=== PATIENT | female | born 1960 | race Caucasian/White ===

== ENCOUNTER 2017-08-07 12:18 | Emergency (ER) | payer BC ==
[~2017-08-07] VITALS: Ht 152.4 cm; Wt 64.4 kg
[~2017-08-07 12:18] MED LIST: ANAS1TAB19 PO; CALC600T9 PO; CLARITIN D
[2017-08-07 12:28] VITALS: TEMP 36.4; Ht 152.4 cm; Wt 64.4 kg
[2017-08-07] MEDS ORDERED: RIBO200T PO (13:21)
[2017-08-07] MEDS ORDERED: LETR2TAB PO (13:21)
[2017-08-07] MEDS ORDERED: ONDANSETRON INJ 2 MG/ML 2 ML VIAL IV STA (13:34)
[2017-08-07] MEDS ORDERED: SODIUM CHLORIDE 0.9% 1000ML 1,000 ML IV STA (13:34)
[2017-08-07] MEDS ORDERED: OPTIRAY 320 IV PRN (14:00)
[2017-08-07 14:47] LABS: PTT PATIENT 42.2 SECONDS (21.0-31.0)
--- NOTE | 2017-08-07 14:51 | EMERGENCY ROOM VISIT NOTE ---
History Report prepared by Ginger: Anya Wise Under the Supervision of: Dr. Doc Joe M.D. First contact with patient: 13:29 Chief Complaint: ALLERGIC REACTION Stated Complaint: REACTION TO CHEMO DRUG Nursing Triage Summary: pt reports she having reaction to chemo med . has been vomiting feeling weak , decreased urination, confusion, decreased energy. med is kisquli has hx of breat ca with bone mets History of Present Illness The patient is a 57 year old female who presents to the Emergency Room with complaints of intermittent nausea and vomiting for the past 3 days. The patient is currently being treated for stage 4 breast cancer with metastases to the bone. She has been receiving an oral chemotherapy treatment for the past 3 weeks. Over the past 3 days she has developed nausea, vomiting, and confusion. The patient states, "I feel like I am moving through water." Family states that the patient has had decreased oral intake. She has not really been eating or drinking at all and what she has been consuming, she has been vomiting back up. She has had decreased urinary output. The patient denies fevers, diarrhea, and any pain. Family notes that the patient has problems with hypoglycemia and she seems to be more confused when her sugar is low. The patient was advised to come to the ED by her oncologist. They were concerned for possible metastases to the brain. Family states that she has had a CT scan of her head in the past which showed no CA in her brain. Source of History: patient Onset: 3 days ago Position: other (global) Quality: other (nausea/vomiting) Timing: intermittent Associated Symptoms: + urinary symptoms (decreased urination), No fevers, No diarrhea Note: Pt is more confused. Pt denies any pain. Review of Systems See HPI for pertinent positives & negatives. A total of 10 systems reviewed and were otherwise negative. Past Medical & Surgical Medical Problems: (1) Breast cancer, stage 4 (2) Hypotension (3) Metastasis to bone Family History No significant family history Social History Smoking Status: Never Smoker Alcohol Use: none Drug Use: none Marital Status: Housing Status: lives with family Current/Historical Medications Scheduled Letrozole (Femara), 2.5 MG PO DAILY Ribociclib Succinate (Kisqali), 600 MG PO DAILY Scheduled PRN Promethazine Hcl (Phenergan), 25 MG PO Q6H PRN for Nausea Allergies Coded Allergies: Penicillins (Verified Allergy, Unknown, 08/07/17) Sulfa Drugs (Verified Allergy, Unknown, 08/07/17) Uncoded Allergies: gladolinium (Adverse Reaction, Intermediate, Could not talk - very disoriented , 09/11/15) Physical Exam Vital Signs Date Time Temp Pulse Resp B/P (MAP) Pulse Ox O2 Delivery O2 Flow Rate FiO2 08/07/17 15:55 68 18 105/71 100 Room Air 08/07/17 14:22 60 08/07/17 14:20 61 18 120/79 100 Room Air 08/07/17 12:28 36.4 60 18 135/83 100 Room Air Physical Exam GENERAL: Patient is in no acute distress. HEENT: No acute trauma, normocephalic atraumatic, mucous membranes moist, no nasal congestion, no scleral icterus. NECK: No stridor, no adenopathy, no meningismus, trachea is midline. LUNGS: Clear to auscultation bilaterally, no wheeze, no rhonchi, breath sounds equal. HEART: Without murmurs gallops or rubs, regular rate and rhythm. ABDOMEN: Soft, nontender, bowel sounds positive, no hernias, no peritonitis. EXTREMITIES: No cyanosis or edema, full range of motion of all the joints without pain or difficulty, no signs for acute trauma. NEUROLOGIC: Oriented x 3, no acute motor or sensory deficits, no focal weakness. SKIN: No rash, no jaundice, no diaphoresis. Medical Decision & Procedures ER Provider Diagnostic Interpretation: Radiology results as stated below per my review and radiologist interpretation: HEAD CT WITH AND WITHOUT INTRAVENOUS CONTRAST HISTORY: confusion, h/o cancer TECHNIQUE: Multiaxial CT images of the head were performed both before and after the intravenous administration of contrast. COMPARISON STUDY: Head CT 06/27/2015. FINDINGS: There are multiple scattered lucent lesions seen within the calvarium, right mandibular condyle, and right posterior arch of C1 consistent with metastatic disease. A few of these have slightly increased in size. There is also abnormal thickening and enhancement within the medial rectus muscle of the left orbit. This measures up to 9 mm in thickness. This is also consistent with metastatic disease. There is no hematoma, midline shift, acute infarct within the brain. There is no abnormal enhancement to suggest an intracranial mass. IMPRESSION: 1. No acute intracranial abnormality. 2. Slight progression of the bony metastases. 3. Interval development of abnormal thickening and enhancement within the medial rectus muscle of the left orbit. This also likely represents metastatic disease. Electronically signed by: Bridger Lee M.D. 08/07/2017 3:49 PM Dictated Date/Time: 08/07/2017 3:38 PM ABDOMEN 2VIEW W/PA CHEST RTN CLINICAL HISTORY: vomiting, cancer history COMPARISON STUDY: 06/27/2015 FINDINGS: Erect chest reveals no free intraperitoneal air. There is a right-sided A-Port catheter present. There is persistent but diminished interstitial prominence. Erect and supine views the abdomen reveal no abnormally dilated loops of large or small bowel. There are no transition zones indicate bowel obstruction. IMPRESSION: No evidence of bowel obstruction. No evidence of free air. Electronically signed by: Francois Jaquez M.D. 08/07/2017 2:48 PM Dictated Date/Time: 08/07/2017 2:48 PM Laboratory Results 08/07/17 14:15 Red Blood Count 3.70, Mean Corpuscular Volume 87.8, Mean Corpuscular Hemoglobin 31.1, Mean Corpuscular Hemoglobin Concent 35.4, Mean Platelet Volume 10.4, Neutrophils (%) (Auto) 54.4, Lymphocytes (%) (Auto) 40.4, Monocytes (%) (Auto) 2.2, Eosinophils (%) (Auto) 1.5, Basophils (%) (Auto) 1.5, Neutrophils # (Auto) 0.74, Lymphocytes # (Auto) 0.55, Monocytes # (Auto) 0.03, Eosinophils # (Auto) 0.02, Basophils # (Auto) 0.02 08/07/17 14:15 Test 08/07/17 14:15 White Blood Count 1.36 K/uL (4.8-10.8) Red Blood Count 3.70 M/uL (4.2-5.4) Hemoglobin 11.5 g/dL (12.0-16.0) Hematocrit 32.5 % (37-47) Mean Corpuscular Volume 87.8 fL (80-100) Mean Corpuscular Hemoglobin 31.1 pg (25-34) Mean Corpuscular Hemoglobin Concent 35.4 g/dl (32-36) Platelet Count 98 K/uL (130-400) Mean Platelet Volume 10.4 fL (7.4-10.4) Neutrophils (%) (Auto) 54.4 % Lymphocytes (%) (Auto) 40.4 % Monocytes (%) (Auto) 2.2 % Eosinophils (%) (Auto) 1.5 % Basophils (%) (Auto) 1.5 % Neutrophils # (Auto) 0.74 K/uL (1.4-6.5) Lymphocytes # (Auto) 0.55 K/uL (1.2-3.4) Monocytes # (Auto) 0.03 K/uL (0.11-0.59) Eosinophils # (Auto) 0.02 K/uL (0-0.5) Basophils # (Auto) 0.02 K/uL (0-0.2) RDW Standard Deviation 43.0 fL (36.4-46.3) RDW Coefficient of Variation 13.5 % (11.5-14.5) Immature Granulocyte % (Auto) 0.0 % Immature Granulocyte # (Auto) 0.00 K/uL (0.00-0.02) Platelet Estimate DECREASED Macrocytosis PRESENT Prothrombin Time 10.7 SECONDS (9.0-12.0) Prothromb Time International Ratio 1.0 (0.9-1.1) Activated Partial Thromboplast Time 42.2 SECONDS (21.0-31.0) Partial Thromboplastin Ratio 1.6 Urine Color YELLOW Urine Appearance CLEAR (CLEAR) Urine pH 5.5 (4.5-7.5) Urine Specific [place] 1.019 (1.000-1.030) Urine Protein 1+ (NEG) Urine Glucose (UA) NEG (NEG) Urine Ketones 1+ (NEG) Urine Occult Blood NEG (NEG) Urine Nitrite NEG (NEG) Urine Bilirubin NEG (NEG) Urine Urobilinogen NEG (NEG) Urine Leukocyte Esterase SMALL (NEG) Urine WBC (Auto) 1-5 /hpf (0-5) Urine RBC (Auto) 5-10 /hpf (0-4) Urine Hyaline Casts (Auto) 1-5 /lpf (0-5) Urine Epithelial Cells (Auto) 5-10 /lpf (0-5) Urine Bacteria (Auto) NEG (NEG) Anion Gap 7.0 mmol/L (3-11) Est Creatinine Clear Calc Drug Dose 51.8 ml/min Estimated GFR () 73.2 Estimated GFR (Non- 63.1 BUN/Creatinine Ratio 10.6 (10-20) Calcium Level 8.2 mg/dl (8.5-10.1) Magnesium Level 2.0 mg/dl (1.8-2.4) Total Bilirubin 1.3 mg/dl (0.2-1) Aspartate Amino Transf (AST/SGOT) 25 U/L (15-37) Alanine Aminotransferase (ALT/SGPT) 18 U/L (12-78) Alkaline Phosphatase 69 U/L (45-117) Troponin I < 0.015 ng/ml (0-0.045) Total Protein 7.1 gm/dl (6.4-8.2) Albumin 3.3 gm/dl (3.4-5.0) Globulin 3.8 gm/dl (2.5-4.0) Albumin/Globulin Ratio 0.9 (0.9-2) Thyroid Stimulating Hormone (TSH) 8.710 uIu/ml (0.300-4.500) Laboratory results reviewed by me. Medications Administered Medications (Trade) Dose Ordered Sig/Yenni Route Start Time Stop Time Status Last Admin Dose Admin Ondansetron HCl (Zofran Inj) 4 mg NOW STAT IV 08/07/17 13:34 08/07/17 13:38 DC 08/07/17 14:25 4 MG Sodium Chloride 1,000 ml @ 999 mls/hr Q1H1M STAT IV 08/07/17 13:34 08/07/17 14:34 DC 08/07/17 14:19 999 MLS/HR Sodium Chloride 500 ml @ 999 mls/hr Q31M STAT IV 08/07/17 16:01 08/07/17 16:31 DC 08/07/17 16:22 999 MLS/HR ECG Indication: altered mental status Rate (beats per minute): 60 Rhythm: normal sinus Findings: nonspecific-ST abn (diffusely), prolonged QT (at 518 ms), no ectopy, other (ECG as interpreted by myself) ED Course 1329: The patient was evaluated in room C9. A complete history and physical exam was performed. 1334: NSS 1000 ml @ 999 mls/hr IV, Zofran 4 mg IV 1558: I spoke with Dr. Mariee, the patient's oncologist. We discussed the patient 's case. He said that everything described was expected and as long as there are no acute findings within the brain the patient can be discharged home. 1601: NSS 500 ml @ 999 mls/hr IV 1619: I reassessed the patient at this time. She is feeling better and resting comfortably. I discussed the results and treatment plan with the patient. I answered all pertaining questions that she had. She expressed understanding and verbalized agreement. The patient will be discharged home. Medical Decision Differential diagnoses includes dehydration, electrolyte imbalance, hypoglycemia , UTI, brain metastases, renal failure, liver failure, medication reaction. The patient is neutropenic, this is expected though given her treatment. Hemoglobin slightly low. Platelet count somewhat low but not critical. Sodium was low at 126, this appears baseline though for the patient looking back at previous testing. No kidney failure. No hepatitis. TSH mildly elevated. X- rays of the abdomen and pelvis do not show any bowel obstruction, there is no pneumonia. Brain CT shows some bony metastases, there was no intraparenchymal lesion seen. A lesion to one of the muscles of the eye was felt possible. EKG showed a normal sinus rhythm, the QT was prolonged, no acute ischemia. Cardiac enzyme testing times one is not consistent with acute cardiac injury. By workup , I could not find evidence for coagulopathy. Urinalysis did not show infection. The patient received IV Zofran and IV saline. She feels markedly better. I discussed her findings with her oncologist. We went over all the imaging and laboratory results. Everything was acceptable and or expected. The patient will be discharged with Phenergan for nausea. Hydration was encouraged. She can return for worsening symptoms or fever. In short, the patient appeared dehydrated more than anything. She has improved with IV hydration. Medication Reconcilliation Current Medication List: was personally reviewed by me Blood Pressure Screening Patient's blood pressure: Normal blood pressure Consults Time Called: [phone] Consulting Physician: Dr. Mariee Returned Call: [phone] Mariee, the patient's oncologist. We discussed the patient's case. He said that everything described was expected and as long as there are no acute findings within the brain the patient can be discharged home. Impression Primary Impression: Dehydration Additional Impressions: Metastatic breast cancer Nausea Scribe Attestation The scribe's documentation has been prepared under my direction and personally reviewed by me in its entirety. I confirm that the note above accurately reflects all work, treatment, procedures, and medical decision making performed by me. Departure Information Dispostion Home / Self-Care Prescriptions Promethazine Hcl (Phenergan) 25 Mg Tab 25 MG PO Q6H Y for Nausea, #20 TAB Prov: Doc Joe M.D. 08/07/17 Referrals No Doctor, Assigned (PCP) Forms HOME CARE DOCUMENTATION FORM, IMPORTANT VISIT INFORMATION Patient Instructions My [facility] Additional Instructions phenergan 1 tab every 6 hours for nausea as needed slowly advance the diet rest fluids return for fever or worsening symptoms as we discussed Problem Qualifiers
[2017-08-07] MEDS ORDERED: RACEPINEPHRINE 2.25% NEBU SOLN 0.5 ML VIAL INH STA (14:53)
[2017-08-07 15:00] LABS: ALBUMIN 3.3 gm/dl (3.4-5.0); ALT/SGPT 18 U/L (12-78); AST/SGOT 25 U/L (15-37); BLOOD UREA NITROGEN 10 mg/dl (7-18); CALCIUM 8.2 mg/dl (8.5-10.1); CARBON DIOXIDE 25 mmol/L (21-32); CREATININE 0.98 mg/dl (0.60-1.20); GLUCOSE 82 mg/dl (70-99); POTASSIUM 3.9 mmol/L (3.5-5.1); SODIUM 126 mmol/L (136-145)
[2017-08-07 15:10] LABS: ALKALINE PHOSPHATASE 69 U/L (45-117); TOTAL PROTEIN 7.1 gm/dl (6.4-8.2)
[2017-08-07 15:12] LABS: HEMATOCRIT 32.5 % (37-47); HEMOGLOBIN 11.5 g/dL (12.0-16.0); MEAN CELL VOLUME 87.8 fL (80-100); MEAN CORPUSCULAR HEMOGLOBIN 31.1 pg (25-34); MEAN CORPUSCULAR HGB CONC 35.4 g/dl (32-36); MEAN PLATELET VOLUME 10.4 fL (7.4-10.4); PLATELET COUNT 98 K/uL (130-400); RED CELL DISTRIBUTION WIDTH CV 13.5 % (11.5-14.5); WHITE BLOOD COUNT 1.36 K/uL (4.8-10.8)
[2017-08-07 15:15] LABS: BASO % 1.5 %; BASO ABS # 0.02 K/uL (0-0.2); EOS % 1.5 %; EOS ABS # 0.02 K/uL (0-0.5); LYMPH % 40.4 %; LYMPH ABS # 0.55 K/uL (1.2-3.4); MONO % 2.2 %; MONO ABS # 0.03 K/uL (0.11-0.59); NEUT % 54.4 %; NEUT ABS # 0.74 K/uL (1.4-6.5)
--- NOTE | 2017-08-07 15:50 | DIAGNOSTIC IMAGING REPORT ---
HEAD CT WITH AND WITHOUT INTRAVENOUS CONTRAST HISTORY: confusion, h/o cancer TECHNIQUE: Multiaxial CT images of the head were performed both before and after the intravenous administration of contrast. COMPARISON STUDY: Head CT 06/27/2015. FINDINGS: There are multiple scattered lucent lesions seen within the calvarium, right mandibular condyle, and right posterior arch of C1 consistent with metastatic disease. A few of these have slightly increased in size. There is also abnormal thickening and enhancement within the medial rectus muscle of the left orbit. This measures up to 9 mm in thickness. This is also consistent with metastatic disease. There is no hematoma, midline shift, acute infarct within the brain. There is no abnormal enhancement to suggest an intracranial mass. IMPRESSION: 1. No acute intracranial abnormality. 2. Slight progression of the bony metastases. 3. Interval development of abnormal thickening and enhancement within the medial rectus muscle of the left orbit. This also likely represents metastatic disease. Electronically signed by: Bridger Lee M.D. 08/07/2017 3:49 PM Dictated Date/Time: 08/07/2017 3:38 PM
[2017-08-07] MEDS ORDERED: SODIUM CHLORIDE 0.9% 500ML 500 ML IV STA (16:01)
[2017-08-07] MEDS ORDERED: PROM25TA9 PO (16:21)
[2017-08-07 17:00] VITALS: BP 116/82; PULSE 72; O2SAT 96
== END 2017-08-07 17:09 | disposition home or self-care (01) ==
LOC: C.EDB 12:20 → C.EDC 17:09
DX: E86.0 Dehydration (principal); C50.919 Malignant neoplasm of unspecified site of unspecified female breast; R11.0 Nausea; C79.51 Secondary malignant neoplasm of bone; I95.9 Hypotension, unspecified; Z79.899 Other long term (current) drug therapy

== ENCOUNTER 2017-09-24 15:05 | Inpatient (IN) | payer BC ==
[~2017-09-24] VITALS: Ht 152.4 cm; Wt 66.2 kg
[~2017-09-24 15:05] MED LIST changes: -ANAS1TAB19 PO; +CALC-279 PO; -CALC600T9 PO; -CLARITIN D; +FULV250I2; +LORA-749 PO; +PROM25TA9 PO; +RIBO200T PO
[2017-09-24 16:44] LABS: HEMATOCRIT 25.3 % (37-47); HEMOGLOBIN 9.4 g/dL (12.0-16.0); MEAN CELL VOLUME 91.3 fL (80-100); MEAN CORPUSCULAR HEMOGLOBIN 33.9 pg (25-34); MEAN CORPUSCULAR HGB CONC 37.2 g/dl (32-36); MEAN PLATELET VOLUME 9.1 fL (7.4-10.4); PLATELET COUNT 121 K/uL (130-400); RED CELL DISTRIBUTION WIDTH SD 61.3 fL (36.4-46.3); WHITE BLOOD COUNT 1.09 K/uL (4.8-10.8)
[2017-09-24 16:45] LABS: BASO % 3.7 %; BASO ABS # 0.04 K/uL (0-0.2); EOS % 2.8 %; EOS ABS # 0.03 K/uL (0-0.5); LYMPH % 61.5 %; LYMPH ABS # 0.67 K/uL (1.2-3.4); MONO % 10.1 %; MONO ABS # 0.11 K/uL (0.11-0.59); NEUT % 21.9 %
[2017-09-24 16:48] LABS: NEUT ABS # 0.24 K/uL (1.4-6.5)
[2017-09-24 16:58] LABS: CREATININE 0.91 mg/dl (0.60-1.20)
[2017-09-24 16:59] LABS: CALCIUM 8.5 mg/dl (8.5-10.1); POTASSIUM 4.3 mmol/L (3.5-5.1)
[2017-09-24 17:00] LABS: ALBUMIN 3.4 gm/dl (3.4-5.0); TOTAL PROTEIN 6.6 gm/dl (6.4-8.2)
[2017-09-24] MEDS ORDERED: SODIUM CHLORIDE 0.9% 1000ML 1,000 ML IV STA (17:15)
--- NOTE | 2017-09-24 18:23 | History and Physical ---
History & Physical Date & Time of Service: Sep 24, 2017 at 18:23 Chief Complaint: Abnormal Labs, Low Sodium. Send By Dr. Mariee Primary Care Physician: No Doctor, Assigned History of Present Illness Source: patient This is a 57-year-old female with metastatic breast cancer metastases to bones- including thoracic spine/T12 vertebral body, sacrum, recent CAT scan of head on July 2017 showed metastatic lesion to left orbit, multiple skull bone lesions Patient follows with hematology oncology Dr. Mariee Underwent multiple rounds of chemo and radiation treatment. Patient recently started on Femora/Ribociclib tx Outpatient lab at [facility] drawn today showed hyponatremia sodium 124 last lab on 09/08/2017 sodium was 139. Patient was asked to come to the ER for evaluation by hematology clinic. Lab drawn at ER showed sodium 118 Patient denies of any headache no confusional state, no dizzy spells or lightheadedness No nausea vomiting or poor p.o. intake recently Had 2 episodes of diarrhea earlier today, She had an ER visit at [facility] August 07, 2017 for nausea vomiting, dehydration, confusional state Required IV hydration Since then she has been drinking plenty of water Mention drinks approximately 72 Oz water a day. Family History No significant family history Social History Smoking Status: Never Smoker Drug Use: none Marital Status: Multi-Drug Resistant Organisms History of MDRO: No Allergies Coded Allergies: Penicillins (Verified Allergy, Unknown, 09/24/17) Sulfa Drugs (Verified Allergy, Unknown, 09/24/17) Uncoded Allergies: gladolinium (Adverse Reaction, Intermediate, Could not talk - very disoriented , 09/11/15) Home Medications Scheduled Calcium Citrate-Vitamin D (Calcium Citrate + D), 1 TAB PO DAILY Fulvestrant (Faslodex), 1 UD Ribociclib Succinate (Kisqali), 600 MG PO DAILY Scheduled PRN Loratadine & Pseudoephedrine (Claritin-D 24 Hour), 1 TAB PO DAILY PRN for Nasal Congestion Promethazine Hcl (Phenergan), 25 MG PO Q6H PRN for Nausea Review of Systems Constitutional: + weight loss, + weakness, + fatigue Eyes: + diplopia Respiratory: No cough, No sputum, No wheezing, No shortness of breath, No dyspnea on exertion, No dyspnea at rest, No hemoptysis, No problem reported Cardiovascular: No chest pain, No orthopnea, No PND, No edema, No claudication , No palpitations, No problem reported Abdomen: + diarrhea (2 episodes earlier) Genitourinary - Female: No dysuria, No urinary frequency, No urinary urgency, No urinary incontinence, No urinary retention, No hematuria, No dysmenorrhea, No menorrhagia, No metrorrhagia, No rash, No vaginal bleeding, No vaginal discharge, No vaginal itching, No vulvodynia, No , No problem reported Neurologic: + weakness, + numbness/tingling Physical Exam Vital Signs Date Time Temp Pulse Resp B/P (MAP) Pulse Ox O2 Delivery O2 Flow Rate FiO2 09/24/17 17:19 64 18 112/75 98 Room Air 09/24/17 17:07 65 09/24/17 15:41 65 09/24/17 15:09 36.8 72 18 148/83 99 Room Air General Appearance: no apparent distress Head: normocephalic, atraumatic Eyes: normal inspection, PERRL, EOMI, sclerae normal Neck: no JVD, no carotid bruits, trachea midline Respiratory/Chest: chest non-tender, lungs clear, normal breath sounds, no respiratory distress Cardiovascular: regular rate, rhythm, no edema, no JVD, normal peripheral pulses Abdomen/GI: normal bowel sounds, non tender, soft Extremities/Musculoskelatal: no pedal edema Neurologic/Psych: no motor/sensory deficits, alert, normal mood/affect Skin: normal color, warm/dry, no rash Diagnostics Laboratory Results Results Past 24 Hours Test 09/24/17 15:12 09/24/17 15:20 09/24/17 16:12 Range/Units Bedside Glucose 69 70-90 mg/dl Urine Color YELLOW Urine Appearance CLEAR CLEAR Urine pH 5.0 4.5-7.5 Urine Specific [place] 1.015 1.000-1.030 Urine Protein NEG NEG Urine Glucose (UA) NEG NEG Urine Ketones NEG NEG Urine Occult Blood NEG NEG Urine Nitrite NEG NEG Urine Bilirubin NEG NEG Urine Urobilinogen NEG NEG Urine Leukocyte Esterase TRACE NEG Urine WBC (Auto) 1-5 0-5 /hpf Urine RBC (Auto) 0-4 0-4 /hpf Urine Hyaline Casts (Auto) 1-5 0-5 /lpf Urine Epithelial Cells (Auto) 10-20 0-5 /lpf Urine Bacteria (Auto) NEG NEG White Blood Count 1.09 4.8-10.8 K/uL Red Blood Count 2.77 4.2-5.4 M/uL Hemoglobin 9.4 12.0-16.0 g/dL Hematocrit 25.3 37-47 % Mean Corpuscular Volume 91.3 80-100 fL Mean Corpuscular Hemoglobin 33.9 25-34 pg Mean Corpuscular Hemoglobin Concent 37.2 32-36 g/dl Platelet Count 121 130-400 K/uL Mean Platelet Volume 9.1 7.4-10.4 fL Neutrophils (%) (Auto) 21.9 % Lymphocytes (%) (Auto) 61.5 % Monocytes (%) (Auto) 10.1 % Eosinophils (%) (Auto) 2.8 % Basophils (%) (Auto) 3.7 % Neutrophils # (Auto) 0.24 1.4-6.5 K/uL Lymphocytes # (Auto) 0.67 1.2-3.4 K/uL Monocytes # (Auto) 0.11 0.11-0.59 K/uL Eosinophils # (Auto) 0.03 0-0.5 K/uL Basophils # (Auto) 0.04 0-0.2 K/uL RDW Standard Deviation 61.3 36.4-46.3 fL RDW Coefficient of Variation 19.0 11.5-14.5 % Immature Granulocyte % (Auto) 0.0 % Immature Granulocyte # (Auto) 0.00 0.00-0.02 K/uL Giant Platelets 1+ Sodium Level 118 136-145 mmol/L Potassium Level 4.3 3.5-5.1 mmol/L Chloride Level 87 98-107 mmol/L Carbon Dioxide Level 24 21-32 mmol/L Anion Gap 7.0 3-11 mmol/L Blood Urea Nitrogen 11 7-18 mg/dl Creatinine 0.91 0.60-1.20 mg/dl Est Creatinine Clear Calc Drug Dose 56.6 ml/min Estimated GFR () 80.0 Estimated GFR (Non- 69.1 BUN/Creatinine Ratio 12.1 10-20 Random Glucose 78 70-99 mg/dl Calcium Level 8.5 8.5-10.1 mg/dl Magnesium Level 1.9 1.8-2.4 mg/dl Total Bilirubin 0.5 0.2-1 mg/dl Direct Bilirubin 0.1 0-0.2 mg/dl Aspartate Amino Transf (AST/SGOT) 25 15-37 U/L Alanine Aminotransferase (ALT/SGPT) 17 12-78 U/L Alkaline Phosphatase 65 45-117 U/L Total Protein 6.6 6.4-8.2 gm/dl Albumin 3.4 3.4-5.0 gm/dl Lipase 158 73-393 U/L Impression Assessment and Plan STAGE 4 BREAST CA ON CHEMO : Diagnosed with left breast lobular carcinoma in 2014 Patient has been following with hematology oncology Dr. Mariee - completed 11 cycles of chemotherapy of weekly paclitaxel -status post bilateral mastectomy lymph node dissection 2015 Completed radiation treatment of the left chest wall and left axilla in 11/[address] scan shows progression of disease with bone metastases in T12 recent ER visit for nausea vomiting dehydration on August 07/2018 CT head showed tumor involvement of the left orbit and multiple skull bone lesions. -Scheduled to have radiation treatment on femora /Ribociclib since July 2017 HYPONATREMIA : Sodium 118 noted in the outpatient lab Patient denies of any nausea vomiting -mentioned has been drinking enough water -No confusion/dizzy spell or lightheadedness noted -Given NSS IV at 125 mL/h 1 L in the ER -Order to continue IV normal saline at 100 mL/h -PRP to be checked q. 4 hour -Caution for rapid correction of hyponatremia -Nephrology consulted, discussed with Dr. Scarlett Garcia -Ordered for urine / serum Osm /TSH level ABSOLUTE NEUTROPENIA /PANCYTOPENIA ; -Due to recent chemo -WBC 1.09, hemoglobin 9.4/hct 25.3 Platelets 121 Absolute neutrophil count 240 -No reported fever /chills or cough -Follow daily CBC with differential -Neutropenic precaution -Hematology oncology consulted DIARRHEA : Order for stool for C. difficile and stool culture FULL CODE ; DVT PROPHYLAXIS : moderate to high risk given metastatic breast CA Relative contraindication for Lovenox /subcu heparin -due to thrombocytopenia and anemia ordered for SCD and teds Encourage ambulate Disposition: Expected to be discharged home when medically stable Hematology oncology follow-up with Dr. Clay Mariee VTE Prophylaxis VTE Risk Assessment Done? Y/N: Yes Risk Level: Moderate Additional Copies To Clay Mariee M.D.
--- NOTE | 2017-09-24 19:07 | EMERGENCY ROOM VISIT NOTE ---
History Report prepared by Ginger: Eulogio Cortes Under the Supervision of: Dr. Kade Gilliam M.D. First contact with patient: 15:14 Chief Complaint: ABNORMAL LABS Stated Complaint: ABNORMAL LABS, LOW SODIUM. SEND BY DR. MARIEE History of Present Illness The patient is a 57 year old female who presents to the Emergency Room after referral from Dr. Mariee (oncologist) for concerns over low sodium levels, that were noticed just prior to arrival. The patient is currently receiving treatments from Dr. 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 The patient just recently had her 1 week off of treatments, and her electrolytes and blood levels are not recovering properly. She notes that she has been having some muscle cramps recently, and states she has had some diarrhea. She continued to add that it "feels like I am walking through water" in reference to her weakness. The patient also had a low blood sugar upon arrival to the ED, but she notes it is common for her sugars to be low. She is not diabetic. The patient denies any further denies LOC, headache, fevers, chills, diaphoresis, visual changes, neck pain, chest pain, breathing difficulties, nausea, vomiting, abdominal pain, back pain, melena, hematochezia , urinary symptoms, numbness, lymphadenopathy, rash, or other complaints. Review of the patient's record from her visit with Dr. Mariee shows a sodium level of 124 today. See ECG section for interpretation. 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 A total of ten systems were reviewed and were otherwise negative. Past Medical & Surgical Medical Problems: (1) Breast cancer, stage 4 (2) Hyponatremia (3) Hypotension (4) Metastasis to bone Family History No significant family history Social History Smoking Status: Never Smoker Alcohol Use: none Drug Use: none Marital Status: Housing Status: lives with family Current/Historical Medications Scheduled Calcium Citrate-Vitamin D (Calcium Citrate + D), 1 TAB PO DAILY Fulvestrant (Faslodex), 1 UD Ribociclib Succinate (Kisqali), 600 MG PO DAILY Scheduled PRN Loratadine & Pseudoephedrine (Claritin-D 24 Hour), 1 TAB PO DAILY PRN for Nasal Congestion Promethazine Hcl (Phenergan), 25 MG PO Q6H PRN for Nausea Allergies Coded Allergies: Penicillins (Verified Allergy, Unknown, 09/24/17) Sulfa Drugs (Verified Allergy, Unknown, 09/24/17) Uncoded Allergies: gladolinium (Adverse Reaction, Intermediate, Could not talk - very disoriented , 09/11/15) Physical Exam Vital Signs Date Time Temp Pulse Resp B/P (MAP) Pulse Ox O2 Delivery O2 Flow Rate FiO2 09/24/17 19:01 63 16 120/75 97 Room Air 09/24/17 17:19 64 18 112/75 98 Room Air 09/24/17 17:07 65 09/24/17 15:41 65 09/24/17 15:09 36.8 72 18 148/83 99 Room Air Physical Exam GENERAL: Awake, alert, well-appearing, in no distress HENT: Normocephalic, atraumatic. Oropharynx unremarkable. EYES: Normal conjunctiva. Sclera non-icteric. NECK: Supple. No nuchal rigidity. FROM. No masses. RESPIRATORY: Clear to auscultation. No wheezes. CARDIAC: Normal rate. Normal rhythm. No murmurs. No rubs. Extremities warm and well perfused. Pulses equal. No JVD. GI: Soft, non-distended. No tenderness to palpation. No rebound or guarding. No masses. RECTAL: Deferred. MUSCULOSKELETAL: Atraumatic. Chest examination reveals no tenderness. The back is symmetrical on inspection without obvious abnormality. There is no CVA tenderness to palpation. No joint edema. LOWER EXTREMITIES: Calves are equal size bilaterally and non-tender. No edema. No discoloration. NEURO: Normal sensorium. No sensory or motor deficits noted. SKIN: No rash or jaundice noted. Medical Decision & Procedures Laboratory Results 09/24/17 16:12 Red Blood Count 2.77, Mean Corpuscular Volume 91.3, Mean Corpuscular Hemoglobin 33.9, Mean Corpuscular Hemoglobin Concent 37.2, Mean Platelet Volume 9.1, Neutrophils (%) (Auto) 21.9, Lymphocytes (%) (Auto) 61.5, Monocytes (%) (Auto) 10.1, Eosinophils (%) (Auto) 2.8, Basophils (%) (Auto) 3.7, Neutrophils # (Auto ) 0.24, Lymphocytes # (Auto) 0.67, Monocytes # (Auto) 0.11, Eosinophils # (Auto ) 0.03, Basophils # (Auto) 0.04 09/24/17 16:12 Test 09/24/17 15:12 09/24/17 15:20 09/24/17 16:12 Bedside Glucose 69 mg/dl (70-90) Urine Color YELLOW Urine Appearance CLEAR (CLEAR) Urine pH 5.0 (4.5-7.5) Urine Specific [place] 1.015 (1.000-1.030) Urine Protein NEG (NEG) Urine Glucose (UA) NEG (NEG) Urine Ketones NEG (NEG) Urine Occult Blood NEG (NEG) Urine Nitrite NEG (NEG) Urine Bilirubin NEG (NEG) Urine Urobilinogen NEG (NEG) Urine Leukocyte Esterase TRACE (NEG) Urine WBC (Auto) 1-5 /hpf (0-5) Urine RBC (Auto) 0-4 /hpf (0-4) Urine Hyaline Casts (Auto) 1-5 /lpf (0-5) Urine Epithelial Cells (Auto) 10-20 /lpf (0-5) Urine Bacteria (Auto) NEG (NEG) White Blood Count 1.09 K/uL (4.8-10.8) Red Blood Count 2.77 M/uL (4.2-5.4) Hemoglobin 9.4 g/dL (12.0-16.0) Hematocrit 25.3 % (37-47) Mean Corpuscular Volume 91.3 fL (80-100) Mean Corpuscular Hemoglobin 33.9 pg (25-34) Mean Corpuscular Hemoglobin Concent 37.2 g/dl (32-36) Platelet Count 121 K/uL (130-400) Mean Platelet Volume 9.1 fL (7.4-10.4) Neutrophils (%) (Auto) 21.9 % Lymphocytes (%) (Auto) 61.5 % Monocytes (%) (Auto) 10.1 % Eosinophils (%) (Auto) 2.8 % Basophils (%) (Auto) 3.7 % Neutrophils # (Auto) 0.24 K/uL (1.4-6.5) Lymphocytes # (Auto) 0.67 K/uL (1.2-3.4) Monocytes # (Auto) 0.11 K/uL (0.11-0.59) Eosinophils # (Auto) 0.03 K/uL (0-0.5) Basophils # (Auto) 0.04 K/uL (0-0.2) RDW Standard Deviation 61.3 fL (36.4-46.3) RDW Coefficient of Variation 19.0 % (11.5-14.5) Immature Granulocyte % (Auto) 0.0 % Immature Granulocyte # (Auto) 0.00 K/uL (0.00-0.02) Giant Platelets 1+ Anion Gap 7.0 mmol/L (3-11) Est Creatinine Clear Calc Drug Dose 56.6 ml/min Estimated GFR () 80.0 Estimated GFR (Non- 69.1 BUN/Creatinine Ratio 12.1 (10-20) Calcium Level 8.5 mg/dl (8.5-10.1) Magnesium Level 1.9 mg/dl (1.8-2.4) Total Bilirubin 0.5 mg/dl (0.2-1) Direct Bilirubin 0.1 mg/dl (0-0.2) Aspartate Amino Transf (AST/SGOT) 25 U/L (15-37) Alanine Aminotransferase (ALT/SGPT) 17 U/L (12-78) Alkaline Phosphatase 65 U/L (45-117) Total Protein 6.6 gm/dl (6.4-8.2) Albumin 3.4 gm/dl (3.4-5.0) Lipase 158 U/L (73-393) Laboratory results reviewed by me Medications Administered Medications (Trade) Dose Ordered Sig/Yenni Route Start Time Stop Time Status Last Admin Dose Admin Sodium Chloride 1,000 ml @ 125 mls/hr Q8H STAT IV 09/24/17 17:15 09/25/17 01:14 09/24/17 17:28 125 MLS/HR ECG Per My Interpretation Rate (beats per minute): 63 Rhythm: normal sinus Findings: nonspecific-ST abn, other (NO PVCs, No JANET/STD) Change: PREVIOUS ECG SHOWED: NSR 58, Non-specific ST. No ectopy, no acute ischemic change. ED Course 1537: The patient was evaluated in room B10. A complete history and physical exam was performed. 1549: Review of the patient's record from her visit with Dr. Mariee shows a sodium level of 124 today. See ECG section for interpretation. 1715: Ordered Sodium Chloride 1000 mL @ 125 mL/hr IV. 1716:I discussed the case with Pearl Weir. She will evaluate the patient for further treatment. Medical Decision Triage Nursing notes reviewed. The patient's presentation and history were concerning for weakness and possible hyponatremia. Etiologies such as electrolyte abnormalities, metabolic, infection, hypo/ hyperglycemia, cardiac sources, intracerebral event, toxicologic, neurologic, as well as others were entertained. The patient was evaluated. She was found to be borderline hypoglycemic. She was given orange juice for this. Her repeat sugar was normal. Her CBC and chemistry panel revealed a significant neutropenia. The patient was also found to have severe hyponatremia. She was hydrated with normal saline gently. The patient had a consultation made with internal medicine. She was evaluated in the ER for further management. She was placed on neutropenic precautions. Medication Reconcilliation Current Medication List: was personally reviewed by me Blood Pressure Screening Patient's blood pressure: Elevated blood pressure Referred to Hospitalist Consults Time Called: 171 Consulting Physician: Pearl Spann PA-C Returned Call: [phone] I discussed the case with Pearl Spann PA-C. She will evaluate the patient for further treatment. Impression Primary Impression: Hyponatremia Additional Impressions: Neutropenia Weakness Scribe Attestation The scribe's documentation has been prepared under my direction and personally reviewed by me in its entirety. I confirm that the note above accurately reflects all work, treatment, procedures, and medical decision making performed by me. Departure Information Dispostion Being Evaluated By Hospitalist Referrals No Doctor, Assigned (PCP) Patient Instructions My [facility] Problem Qualifiers
[2017-09-24] MEDS ORDERED: SODIUM CHLORIDE 0.9% 1000ML 1,000 ML IV SCH (19:36)
[2017-09-24] MEDS ORDERED: ACETAMINOPHEN 325 MG TAB PO PRN (19:45)
[2017-09-24] MEDS ORDERED: ENOXAPARIN 40 MG/0.4 ML SYR SC SCH (21:00)
[2017-09-24 21:04] LABS: CALCIUM 8.2 mg/dl (8.5-10.1); CREATININE 0.93 mg/dl (0.60-1.20)
[2017-09-24] MEDS ORDERED: PROMETHAZINE HCL 25 MG TAB PO PRN (21:30)
[2017-09-24] MEDS ORDERED: LORATADINE/PSEUDOEPHEDRINE 1 TAB TABCR PO PRN (21:30)
--- NOTE | 2017-09-24 21:35 | Progress Note ---
Progress Note Date of Service Sep 24, 2017. Progress Note Lab reviewed: 8:30 PM Sodium increased from 118 to 121 Serum Osm 248 Ordered for IV normal saline to be discontinued to prevent rapid correction of hyponatremia. Discussed with on-call nephrology Dr. Scarlett Garcia PRP ordered for every 4 hours Next lab at midnight nephrology recommendation: ok to DC IV NSS Follow Mid night Lab: 1. If sodium level at midnight less than 118 please call nephrology 2.Sodium level between 119 -120 : start IV fluid normal saline at 80 mL per hour 3. Sodium level 122 -125: No change needed ( heplock /no IVF ) 4 Sodium level 125 please call nephrology TSH > 7 ordered for free T3/T4 in AM
[2017-09-24 23:15] VITALS: BP 117/75; PULSE 67; TEMP 36.9; O2SAT 97; Ht 152.4 cm; Wt 66.2 kg
[2017-09-24 23:29] VITALS: BP 96/60; PULSE 68; TEMP 36.8; O2SAT 100
[2017-09-24 23:59] LABS: CREATININE 1.11 mg/dl (0.60-1.20); POTASSIUM 3.9 mmol/L (3.5-5.1)
[2017-09-25 02:58] LABS: OSMOLALITY,URINE 161 mOms/kg (500-800)
[2017-09-25 03:02] LABS: SODIUM RANDOM URINE 26 mEq/L
[2017-09-25 03:24] VITALS: BP 90/57; PULSE 69; TEMP 36.9; O2SAT 97
[2017-09-25 07:05] LABS: ALBUMIN 3.1 gm/dl (3.4-5.0); CREATININE 1.05 mg/dl (0.60-1.20); POTASSIUM 4.2 mmol/L (3.5-5.1)
[2017-09-25 07:09] LABS: PHOSPHORUS 2.6 mg/dl (2.5-4.9); TOTAL PROTEIN 6.1 gm/dl (6.4-8.2)
[2017-09-25 07:13] LABS: HEMATOCRIT 26.5 % (37-47); HEMOGLOBIN 9.8 g/dL (12.0-16.0); MEAN CELL VOLUME 91.1 fL (80-100); MEAN CORPUSCULAR HEMOGLOBIN 33.7 pg (25-34); PLATELET COUNT 124 K/uL (130-400)
[2017-09-25 07:19] LABS: BASO % 1.5 %; BASO ABS # 0.02 K/uL (0-0.2); EOS % 3.1 %; EOS ABS # 0.04 K/uL (0-0.5); IG# 0.05 K/uL (0.00-0.02); LYMPH % 65.4 %; LYMPH ABS # 0.85 K/uL (1.2-3.4); MONO % 9.2 %; MONO ABS # 0.12 K/uL (0.11-0.59); NEUT ABS # 0.22 K/uL (1.4-6.5)
[2017-09-25 08:07] VITALS: BP 124/69; PULSE 81; TEMP 37; O2SAT 96
[2017-09-25] MEDS: CALCIUM 600MG + VIT D 400 IU TAB PO SCH (08:20)
--- NOTE | 2017-09-25 10:03 | Progress Note ---
Progress Note Date of Service Sep 25, 2017. 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
[2017-09-25 10:22] VITALS: BP 124/69; PULSE 81; TEMP 37; O2SAT 96
[2017-09-25 10:30] VITALS: BP 107/79; PULSE 68; TEMP 36.5; O2SAT 99
[2017-09-25 10:44] LABS: CALCIUM 8.2 mg/dl (8.5-10.1); CREATININE 0.97 mg/dl (0.60-1.20); POTASSIUM 4.1 mmol/L (3.5-5.1)
[2017-09-25] MEDS: LEVOTHYROXINE 25 MCG TAB PO SCH (11:53)
[2017-09-25 14:56] VITALS: BP 108/69; PULSE 63; TEMP 36.3; O2SAT 98
[2017-09-25 15:23] LABS: CALCIUM 8.4 mg/dl (8.5-10.1); CREATININE 1.02 mg/dl (0.60-1.20); POTASSIUM 3.7 mmol/L (3.5-5.1)
--- NOTE | 2017-09-25 16:11 | Nephrology Consultation ---
Nephrology Consultation Date of Consultation: Sep 25, 2017. Attending Physician: Dr Price Requesting Physician: Dr Price Reason for Consultation: hyponatremia History of Present Illness 57 year old female w/ stage 4 BRCA (spinal/skull mets) sent from oncology clinic after outpt labs showed sNa 124; down from last value 09/08 139. On arrival here at 1600 yesterday, sNa 118. No slurred speech, falls, confusion, ambulatory concerns, n/v, decreased po. did endorse some diarrhea earlier in day. Stated that she had generalized weakness yesterday and that moving around was "like moving through water." Drinks about 72 oz daily water ever since 2017 ER eval for n/v/dehydration: sNa that visit was 126. Receiving therapy w / fulvestrant and ribociclib. Apparently the ER visit in 07/2017 was at tail end of ridociclib cycle as well. Scheduled for XRT to treat skull mets. I discussed her care last evening w/ Dr. Price: the pt was initially hydrated w / NS at 125 mL hourly and serial chemistries were monitored. She was correcting quickly last evening and we stopped IVF after f/u labs. Also noted to be hypothyroid on arrival and primary service addressing this. Past Medical/Surgical History Medical Problems: (1) Metastatic breast cancer Status: Acute (2) Nausea Status: Acute (3) Neutropenia Status: Acute (4) Weakness Status: Acute -intermittent chronic hyponatremia since at least 12/2016 -BRCA stage 4 Family History No significant family history Social History Smoking Status: Never Smoker Alcohol Use: none Drug Use: none Marital Status: Housing Status: lives with family Allergies Coded Allergies: Penicillins (Verified Allergy, Unknown, 09/24/17) Sulfa Drugs (Verified Allergy, Unknown, 09/24/17) Uncoded Allergies: gladolinium (Adverse Reaction, Intermediate, Could not talk - very disoriented , 09/11/15) Medications Current Inpatient Medications Medications (Trade) Dose Ordered Sig/Yenni Route Start Time Stop Time Status Last Admin Dose Admin Acetaminophen (Tylenol Tab) 650 mg Q4H PRN PO 09/24/17 19:45 10/24/17 19:44 Loratadine/ Pseudoephedrine Sulfate (Claritin-D 24 Hour Tab) 1 tab DAILY PRN PO 09/24/17 21:30 10/24/17 21:29 Promethazine HCl (Phenergan Tab) 25 mg Q6H PRN PO 09/24/17 21:30 10/24/17 21:29 Calcium/Vitamin D (Caltrate Plus Tab) 1 tab DAILY PO 09/25/17 09:00 10/25/17 08:59 09/25/17 08:20 1 TAB Levothyroxine Sodium (Synthroid Tab) 25 mcg DAILYBB PO 09/25/17 10:00 10/25/17 09:59 09/25/17 11:53 25 MCG Home Meds and Scripts Medications Dose Route/Sig Max Daily Dose Days Date Category Dose Instructions Faslodex (Fulvestrant) 250 Mg/5 Ml Inj 1 UD 09/09/17 Reported will start monthly , taking every other week now Claritin-D 24 Hour (Loratadine & Pseudoephedrine) 1 Tab Tab 1 Tab PO DAILY PRN 30 09/09/17 Reported Calcium Citrate + D (Calcium Citrate-Vitamin D) 1 Tab Tab 1 Tab PO DAILY 09/09/17 Reported 250-200mg Phenergan (Promethazine HCl) 25 Mg Tab 25 Mg PO Q6H PRN 08/07/17 Rx Kisqali (Ribociclib Succinate) 200 Mg Tab 600 Mg PO DAILY 08/07/17 Reported takes 3 weeks on and 1 week off Review of Systems Constitutional: + fatigue, No fever, No chills Eyes: No worsening of vision ENT: No hearing loss Respiratory: No cough, No shortness of breath Cardiac: No chest pain, No edema, No palpitations Abdomen: + diarrhea, No pain, No nausea, No vomiting Musculoskeletal: No joint pain, No muscle pain Female : No dysuria, No urinary frequency, No hematuria Neuro: + memory loss, + weakness, + balance problems Psych: No depression symptoms, No anxiety Heme: No abnormal bleeding/bruising Endo: No fatigue Skin: No rash, No itch, No new/changing skin lesions Physical Exam Date Time Temp Pulse Resp B/P (MAP) Pulse Ox O2 Delivery O2 Flow Rate FiO2 09/25/17 10:59 Room Air 09/25/17 10:30 36.5 68 16 107/79 (88) 99 09/25/17 10:22 37.0 81 18 96 09/25/17 08:07 37.0 81 18 124/69 (87) 96 09/25/17 08:00 Room Air 09/25/17 04:00 Room Air 09/25/17 03:24 36.9 69 20 90/57 (68) 97 Room Air 09/24/17 23:59 Room Air 09/24/17 23:29 36.8 68 20 96/60 (72) 100 Room Air 09/24/17 23:15 36.9 67 16 117/75 97 Room Air 09/24/17 19:01 63 16 120/75 97 Room Air 09/24/17 17:19 64 18 112/75 98 Room Air 09/24/17 17:07 65 09/24/17 15:41 65 09/24/17 15:09 36.8 72 18 148/83 99 Room Air General Appearance: WD/WN, no apparent distress, + pertinent finding (on RA, maneuvers readily for exam) Eyes: EOMI ENT: normal ENT inspection Neck: supple Respiratory/Chest: lungs clear, normal breath sounds Cardiovascular: regular rate, rhythm, no edema Abdomen: normal bowel sounds, non tender, soft, + pertinent finding (no garcía) Extremities: non-tender, normal inspection Neurologic/Psych: no motor/sensory deficits (except R eye medial amblyopia), alert, normal mood/affect, oriented x 3 Skin: no jaundice, warm/dry, no rash, + pallor Diagnostics Last 24 Hours Test 09/24/17 15:12 09/24/17 15:20 09/24/17 16:12 09/24/17 20:24 Bedside Glucose 69 mg/dl Urine Color YELLOW Urine Appearance CLEAR Urine pH 5.0 Urine Specific [place] 1.015 Urine Protein NEG Urine Glucose (UA) NEG Urine Ketones NEG Urine Occult Blood NEG Urine Nitrite NEG Urine Bilirubin NEG Urine Urobilinogen NEG Urine Leukocyte Esterase TRACE Urine WBC (Auto) 1-5 /hpf Urine RBC (Auto) 0-4 /hpf Urine Hyaline Casts (Auto) 1-5 /lpf Urine Epithelial Cells (Auto) 10-20 /lpf Urine Bacteria (Auto) NEG White Blood Count 1.09 K/uL Red Blood Count 2.77 M/uL Hemoglobin 9.4 g/dL Hematocrit 25.3 % Mean Corpuscular Volume 91.3 fL Mean Corpuscular Hemoglobin 33.9 pg Mean Corpuscular Hemoglobin Concent 37.2 g/dl Platelet Count 121 K/uL Mean Platelet Volume 9.1 fL Neutrophils (%) (Auto) 21.9 % Lymphocytes (%) (Auto) 61.5 % Monocytes (%) (Auto) 10.1 % Eosinophils (%) (Auto) 2.8 % Basophils (%) (Auto) 3.7 % Neutrophils # (Auto) 0.24 K/uL Lymphocytes # (Auto) 0.67 K/uL Monocytes # (Auto) 0.11 K/uL Eosinophils # (Auto) 0.03 K/uL Basophils # (Auto) 0.04 K/uL RDW Standard Deviation 61.3 fL RDW Coefficient of Variation 19.0 % Immature Granulocyte % (Auto) 0.0 % Immature Granulocyte # (Auto) 0.00 K/uL Giant Platelets 1+ Prothrombin Time 10.6 SECONDS Prothromb Time International Ratio 1.0 Sodium Level 118 mmol/L 121 mmol/L Potassium Level 4.3 mmol/L 4.0 mmol/L Chloride Level 87 mmol/L 91 mmol/L Carbon Dioxide Level 24 mmol/L 25 mmol/L Anion Gap 7.0 mmol/L 5.0 mmol/L Blood Urea Nitrogen 11 mg/dl 11 mg/dl Creatinine 0.91 mg/dl 0.93 mg/dl Est Creatinine Clear Calc Drug Dose 56.6 ml/min 55.4 ml/min Estimated GFR () 80.0 78.0 Estimated GFR (Non- 69.1 67.3 BUN/Creatinine Ratio 12.1 11.4 Random Glucose 78 mg/dl 74 mg/dl Calcium Level 8.5 mg/dl 8.2 mg/dl Magnesium Level 1.9 mg/dl Total Bilirubin 0.5 mg/dl Direct Bilirubin 0.1 mg/dl Aspartate Amino Transf (AST/SGOT) 25 U/L Alanine Aminotransferase (ALT/SGPT) 17 U/L Alkaline Phosphatase 65 U/L Total Protein 6.6 gm/dl Albumin 3.4 gm/dl Lipase 158 U/L Osmolality 248 mOsm/kg Thyroid Stimulating Hormone (TSH) 7.050 uIu/ml Test 09/24/17 23:30 09/25/17 02:20 09/25/17 06:05 09/25/17 09:58 Sodium Level 123 mmol/L 124 mmol/L 123 mmol/L Potassium Level 3.9 mmol/L 4.2 mmol/L 4.1 mmol/L Chloride Level 92 mmol/L 95 mmol/L 94 mmol/L Carbon Dioxide Level 25 mmol/L 24 mmol/L 21 mmol/L Anion Gap 6.0 mmol/L 6.0 mmol/L 8.0 mmol/L Blood Urea Nitrogen 12 mg/dl 11 mg/dl 12 mg/dl Creatinine 1.11 mg/dl 1.05 mg/dl 0.97 mg/dl Est Creatinine Clear Calc Drug Dose 45.0 ml/min 47.9 ml/min 51.9 ml/min Estimated GFR () 62.9 67.3 74.1 Estimated GFR (Non- 54.3 58.1 63.9 BUN/Creatinine Ratio 10.5 10.9 12.4 Random Glucose 87 mg/dl 71 mg/dl 75 mg/dl Calcium Level 8.0 mg/dl 8.0 mg/dl 8.2 mg/dl Urine Osmolality 161 mOms/kg Urine Random Sodium 26 mEq/L White Blood Count 1.30 K/uL Red Blood Count 2.91 M/uL Hemoglobin 9.8 g/dL Hematocrit 26.5 % Mean Corpuscular Volume 91.1 fL Mean Corpuscular Hemoglobin 33.7 pg Mean Corpuscular Hemoglobin Concent 37.0 g/dl Platelet Count 124 K/uL Neutrophils (%) (Auto) 17.0 % Lymphocytes (%) (Auto) 65.4 % Monocytes (%) (Auto) 9.2 % Eosinophils (%) (Auto) 3.1 % Basophils (%) (Auto) 1.5 % Neutrophils # (Auto) 0.22 K/uL Lymphocytes # (Auto) 0.85 K/uL Monocytes # (Auto) 0.12 K/uL Eosinophils # (Auto) 0.04 K/uL Basophils # (Auto) 0.02 K/uL Immature Granulocyte % (Auto) 3.8 % Immature Granulocyte # (Auto) 0.05 K/uL Giant Platelets 2+ Phosphorus Level 2.6 mg/dl Magnesium Level 1.9 mg/dl Total Bilirubin 0.5 mg/dl Direct Bilirubin 0.1 mg/dl Aspartate Amino Transf (AST/SGOT) 23 U/L Alanine Aminotransferase (ALT/SGPT) 17 U/L Alkaline Phosphatase 54 U/L Total Protein 6.1 gm/dl Albumin 3.1 gm/dl Globulin 3.0 gm/dl Albumin/Globulin Ratio 1.0 Free Thyroxine 0.45 ng/dl Free Triiodothyronine 1.73 pg/ml Diagnostic Radiology: none Assessment & Plan 57 y/o F w/ stage 4 BRCA admitted with nonsymptomatic acute on chronic hyponatremia, presenting sNa 118. Also w/ leukopenia, anemia. Neither of her chemo agents in my reading commonly causes hyponatremia or electrolyte disorders but both certainly can cause GI sx such as N/V/D and lymphopenia/ anemia; ribociclib can cause Qt prolongation; fulvestrant can raise liver enzymes. bmp Chronic recurrent hypotonic hyponatremia Hospitalist questions/care appreciated > goal sNa for this am was 122; pt was at 124; then 123 on recheck at 10 am, 124 at 1400 -urine osms suggestive of polydipsia as well -due in part to dehydration, low solute intake >> recovering w/ NS at 125 ml/ hr too fast and IVF stopped. >>will resume NS w/ 20 mEq K /L at 80 ml/hr -pls log I/O -recheck bmp 2100 >> order in -will recheck urine osms/Na in am Appreciate consult; will follow with you.
[2017-09-25] MEDS ORDERED: NSS + 20MEQ KCL 1000ML 1,000 ML IV ONE (16:30)
--- NOTE | 2017-09-25 16:41 | Radiation Oncology Progress Nt ---
Radiation Oncology Progress Nt Date of Service Date of Service: Sep 25, 2017. Reason For Admission Electrolyte Abnormality (Hyponatremia) Neutropenia Requesting Physician Dr. Price Subjective Pt evaluation today including: conversation w/ patient, conversation with hospitalist, conversation with inpatient team, chart review, lab review, review of studies, review of inpatient medication list Radiation Therapy Has patient started Radiation: Yes Number of Treatments Received: 5 Number of Treatments Planned: 15 Current Chemotherapy: Yes Additional Chemotherapy Femara/Ribociclib Objective Vital Signs Date Time Temp Pulse Resp B/P (MAP) Pulse Ox O2 Delivery O2 Flow Rate FiO2 09/25/17 16:20 Room Air 09/25/17 14:56 36.3 63 18 108/69 (82) 98 Room Air 09/25/17 10:59 Room Air 09/25/17 10:30 36.5 68 16 107/79 (88) 99 09/25/17 10:22 37.0 81 18 96 09/25/17 08:07 37.0 81 18 124/69 (87) 96 09/25/17 08:00 Room Air 09/25/17 04:00 Room Air 09/25/17 03:24 36.9 69 20 90/57 (68) 97 Room Air 09/24/17 23:59 Room Air 09/24/17 23:29 36.8 68 20 96/60 (72) 100 Room Air 09/24/17 23:15 36.9 67 16 117/75 97 Room Air 09/24/17 19:01 63 16 120/75 97 Room Air 09/24/17 17:19 64 18 112/75 98 Room Air 09/24/17 17:07 65 Physical Exam General Appearance: + mild distress Neck: supple, no adenopathy Respiratory/Chest: chest non-tender, lungs clear, normal breath sounds, no respiratory distress Cardiovascular: regular rate, rhythm, no edema, no gallop, no JVD, no murmur Neurologic/Psychiatric: superintendent of generation II-XII nml as tested, alert, oriented x 3 Laboratory Results Last 24 Hours Test 09/24/17 20:24 09/24/17 23:30 09/25/17 02:20 09/25/17 06:05 Sodium Level 121 mmol/L 123 mmol/L 124 mmol/L Potassium Level 4.0 mmol/L 3.9 mmol/L 4.2 mmol/L Chloride Level 91 mmol/L 92 mmol/L 95 mmol/L Carbon Dioxide Level 25 mmol/L 25 mmol/L 24 mmol/L Anion Gap 5.0 mmol/L 6.0 mmol/L 6.0 mmol/L Blood Urea Nitrogen 11 mg/dl 12 mg/dl 11 mg/dl Creatinine 0.93 mg/dl 1.11 mg/dl 1.05 mg/dl Est Creatinine Clear Calc Drug Dose 55.4 ml/min 45.0 ml/min 47.9 ml/min Estimated GFR () 78.0 62.9 67.3 Estimated GFR (Non- 67.3 54.3 58.1 BUN/Creatinine Ratio 11.4 10.5 10.9 Random Glucose 74 mg/dl 87 mg/dl 71 mg/dl Osmolality 248 mOsm/kg Calcium Level 8.2 mg/dl 8.0 mg/dl 8.0 mg/dl Thyroid Stimulating Hormone (TSH) 7.050 uIu/ml Urine Osmolality 161 mOms/kg Urine Random Sodium 26 mEq/L White Blood Count 1.30 K/uL Red Blood Count 2.91 M/uL Hemoglobin 9.8 g/dL Hematocrit 26.5 % Mean Corpuscular Volume 91.1 fL Mean Corpuscular Hemoglobin 33.7 pg Mean Corpuscular Hemoglobin Concent 37.0 g/dl Platelet Count 124 K/uL Neutrophils (%) (Auto) 17.0 % Lymphocytes (%) (Auto) 65.4 % Monocytes (%) (Auto) 9.2 % Eosinophils (%) (Auto) 3.1 % Basophils (%) (Auto) 1.5 % Neutrophils # (Auto) 0.22 K/uL Lymphocytes # (Auto) 0.85 K/uL Monocytes # (Auto) 0.12 K/uL Eosinophils # (Auto) 0.04 K/uL Basophils # (Auto) 0.02 K/uL Immature Granulocyte % (Auto) 3.8 % Immature Granulocyte # (Auto) 0.05 K/uL Giant Platelets 2+ Phosphorus Level 2.6 mg/dl Magnesium Level 1.9 mg/dl Total Bilirubin 0.5 mg/dl Direct Bilirubin 0.1 mg/dl Aspartate Amino Transf (AST/SGOT) 23 U/L Alanine Aminotransferase (ALT/SGPT) 17 U/L Alkaline Phosphatase 54 U/L Total Protein 6.1 gm/dl Albumin 3.1 gm/dl Globulin 3.0 gm/dl Albumin/Globulin Ratio 1.0 Free Thyroxine 0.45 ng/dl Free Triiodothyronine 1.73 pg/ml Test 09/25/17 09:58 09/25/17 14:38 Sodium Level 123 mmol/L 124 mmol/L Potassium Level 4.1 mmol/L 3.7 mmol/L Chloride Level 94 mmol/L 93 mmol/L Carbon Dioxide Level 21 mmol/L 23 mmol/L Anion Gap 8.0 mmol/L 8.0 mmol/L Blood Urea Nitrogen 12 mg/dl 12 mg/dl Creatinine 0.97 mg/dl 1.02 mg/dl Est Creatinine Clear Calc Drug Dose 51.9 ml/min 49.3 ml/min Estimated GFR () 74.1 69.7 Estimated GFR (Non- 63.9 60.2 BUN/Creatinine Ratio 12.4 12.2 Random Glucose 75 mg/dl 89 mg/dl Calcium Level 8.2 mg/dl 8.4 mg/dl Assessment and Plan We have discussed the patients care with the primary hospital service. The patients reason for admission is unrelated to radiation therapy. The primary hospital service has recommended the patient continue with radiation therapy while in the inpatient setting. The patient was evaluated in our department and will continue with radiation therapy during this hospital course. Please call us with any further questions or concerns or if the patients condition changes during her hospital admission.
--- NOTE | 2017-09-25 16:50 | Progress Note ---
Internal Med Progress Note Date of Service: Sep 25, 2017. Provider Documentation: SUBJECTIVE: Patient offers no complaint Scheduled to have radiation treatment today No episodes of nausea vomiting or diarrhea No fever or chills Appetite fair OBJECTIVE: Vital Signs-as noted below Exam: General-[no apparent distress] Eyes-[sclera nonicteric, PERRLA/EOMI] ENT-[moist oral mucosa] Neck-[no JVD] Lungs-[clear to auscultation no wheezes or rales] Heart-[regular S1-S2] Abdomen-[soft nontender] Extremities-[no lower extremity edema no Rash] Neuro-[alert awake oriented 3 no focal neurological deficit] Lab data as noted below. ASSESSMENT & PLAN: HYPONATREMIA : Sodium level improved overnight Hyponatremia possibly secondary to polydipsia/excessive water intake Patient reports of drinking as much as 76 oz of water to prevent dehydration Which occurred in July 2017 after chemo Appreciate input from nephrology Continue require slow correction of sodium will continue to monitor PRP frequently Patient does not demonstrate any acute neurological symptoms STAGE 4 BREAST CA ON CHEMO : Diagnosed with left breast lobular carcinoma in 2014 Patient has been following with hematology oncology Dr. Mariee - completed 11 cycles of chemotherapy of weekly paclitaxel -status post bilateral mastectomy lymph node dissection 2015 Completed radiation treatment of the left chest wall and left axilla in 11/[address] scan shows progression of disease with bone metastases in T12 recent ER visit for nausea vomiting dehydration on August 07/2018 CT head showed tumor involvement of the left orbit and multiple skull bone lesions. -on femora /Ribociclib since July 2017 -Continue scheduled radiation treatment while inpatient -Radiation oncology consult ABSOLUTE NEUTROPENIA /PANCYTOPENIA ; -Due to recent chemo -No reported fever /chills or cough -Follow daily CBC with differential -Neutropenic precaution -Hematology oncology consulted DIARRHEA : stool for C. difficile negative FULL CODE ; DVT PROPHYLAXIS : moderate to high risk given metastatic breast CA Relative contraindication for Lovenox /subcu heparin -due to thrombocytopenia and anemia ordered for SCD and teds Encourage ambulate DISPOSITION Expected to be discharged home when medically stable Patient will continue to follow with hematology oncology Dr. Mariee for chemo treatment for metastatic breast cancer Vital Signs: Date Time Temp Pulse Resp B/P (MAP) Pulse Ox O2 Delivery O2 Flow Rate FiO2 09/26/17 19:00 Room Air 09/26/17 16:00 Room Air 09/26/17 14:34 36.3 58 18 112/76 (88) 100 09/26/17 08:05 Room Air 09/26/17 07:39 36.7 59 18 105/71 (82) 97 Room Air 09/26/17 00:30 Room Air 09/26/17 00:01 36.7 69 20 100/66 (77) 93 Room Air Lab Results: Results Past 24 Hours Test 09/26/17 05:43 09/26/17 17:07 Range/Units White Blood Count 1.63 4.8-10.8 K/uL Red Blood Count 2.80 4.2-5.4 M/uL Hemoglobin 9.5 12.0-16.0 g/dL Hematocrit 25.8 37-47 % Mean Corpuscular Volume 92.1 80-100 fL Mean Corpuscular Hemoglobin 33.9 25-34 pg Mean Corpuscular Hemoglobin Concent 36.8 32-36 g/dl Platelet Count 135 130-400 K/uL Mean Platelet Volume 9.4 7.4-10.4 fL RDW Standard Deviation 63.3 36.4-46.3 fL RDW Coefficient of Variation 19.5 11.5-14.5 % Neutrophils % (Manual) 40.0 % Lymphocytes % (Manual) 54.8 % Monocytes % (Manual) 3.5 % Eosinophils % (Manual) 1.7 % Neutrophils # (Manual) 0.65 1.4-6.5 K/uL Total Absolute Neutrophils 0.65 1.4-6.5 K/uL Lymphocytes # (Manual) 0.89 1.2-3.4 K/uL Total Absolute Lymphocytes 0.89 1.2-3.4 K/uL Monocytes # (Manual) 0.06 0.11-0.59 K/uL Eosinophils # (Manual) 0.03 0-0.5 K/uL Sodium Level 129 128 136-145 mmol/L Potassium Level 4.1 4.2 3.5-5.1 mmol/L Chloride Level 100 99 98-107 mmol/L Carbon Dioxide Level 20 23 21-32 mmol/L Anion Gap 9.0 6.0 3-11 mmol/L Blood Urea Nitrogen 10 9 7-18 mg/dl Creatinine 0.89 0.98 0.60-1.20 mg/dl Est Creatinine Clear Calc Drug Dose 57.8 52.5 ml/min Estimated GFR () 82.2 73.2 Estimated GFR (Non- 70.9 63.1 BUN/Creatinine Ratio 11.8 9.6 10-20 Random Glucose 73 84 70-99 mg/dl Calcium Level 8.0 7.6 8.5-10.1 mg/dl Phosphorus Level 2.4 2.5-4.9 mg/dl Magnesium Level 2.1 1.8-2.4 mg/dl Total Bilirubin 0.4 0.2-1 mg/dl Direct Bilirubin 0.1 0-0.2 mg/dl Aspartate Amino Transf (AST/SGOT) 19 15-37 U/L Alanine Aminotransferase (ALT/SGPT) 17 12-78 U/L Alkaline Phosphatase 52 45-117 U/L Total Protein 6.1 6.4-8.2 gm/dl Albumin 3.0 3.4-5.0 gm/dl Globulin 3.1 2.5-4.0 gm/dl Albumin/Globulin Ratio 1.0 0.9-2 Microbiology Results 09/26/17 C.difficile Toxin B Gene (PCR) - Final, Complete No C. difficile toxin B gene detected 09/26/17 Shiga Toxin Test, Received Pending 09/26/17 Stool Culture, Received Pending
[2017-09-25 21:42] LABS: CALCIUM 8.1 mg/dl (8.5-10.1); CREATININE 1.04 mg/dl (0.60-1.20); POTASSIUM 4.1 mmol/L (3.5-5.1)
[2017-09-25 22:21] LABS: OSMOLALITY,URINE 328 mOms/kg (500-800)
[2017-09-25 22:24] LABS: SODIUM RANDOM URINE 74 mEq/L
[2017-09-25] MEDS: SODIUM CHLORIDE 0.9% 1000ML 1,000 ML IV SCH (22:42)
--- NOTE | 2017-09-25 23:07 | Medical Consult ---
Consultation Date of Consultation: Sep 25, 2017. Attending Physician: Ashley Price M.D. Reason for Consultation: metastatic breast cancer, neutropenia History of Present Illness 57 year old female with stage IV breast cancer. Her history dates back to 2014 when she was found to have a left breast mass and axillary adenopathy and she underwent biopsy of left breast in 02/09/15 which showed invasive lobular carcinoma ER+ OR+ Her 2 nixon negative She was noted on PET-CT scan to have bone metastases involving the sacrum and left rib, thoracic spine and right scapula and she underwent biopsy of the sacral bone met in 03/2015 which was consistent with metastatic breast cancer She also underwent a right breast biopsy which revealed invasive lobular carcinoma ER+ OR neg Her 2 neg She received chemotherapy, then subsequently she underwent bilateral mastectomy in 08/21/15 and radiation therapy. was then on arimidex. Subsequently she had progression and was on femara and ribociclib, Femara was recently discontinued and she is currently on faslodex and ribociclib. Ribociclib is on hold currently due to neutropeni - ANC remains <500 She denies any fever or chills She has fatigue She denies any cough or shortnes \s of breath She had an episode of diarrhea yesterday but states that she has not had any further episode today She has diplopia and is currently on RT She is admitted for hyponatremia - sodium was a s low as 118 - states that she had felt as if she was walking in water. Feels significantly improved now. She states that she was drinking up to 72 oz of water since she went to hospital for dehydration in July Past Medical/Surgical History Medical Problems: (1) Metastatic breast cancer Status: Acute (2) Nausea Status: Acute (3) Neutropenia Status: Acute (4) Weakness Status: Acute Family History No significant family history Social History Smoking Status: Never Smoker Drug Use: none Marital Status: Housing Status: lives with family Allergies Coded Allergies: Penicillins (Verified Allergy, Unknown, 09/24/17) Sulfa Drugs (Verified Allergy, Unknown, 09/24/17) Uncoded Allergies: gladolinium (Adverse Reaction, Intermediate, Could not talk - very disoriented , 09/11/15) Current Inpatient Medications Current Inpatient Medications Medications (Trade) Dose Ordered Sig/Yenni Route Start Time Stop Time Status Last Admin Dose Admin Acetaminophen (Tylenol Tab) 650 mg Q4H PRN PO 09/24/17 19:45 10/24/17 19:44 Loratadine/ Pseudoephedrine Sulfate (Claritin-D 24 Hour Tab) 1 tab DAILY PRN PO 09/24/17 21:30 10/24/17 21:29 Promethazine HCl (Phenergan Tab) 25 mg Q6H PRN PO 09/24/17 21:30 10/24/17 21:29 Calcium/Vitamin D (Caltrate Plus Tab) 1 tab DAILY PO 09/25/17 09:00 10/25/17 08:59 09/25/17 08:20 1 TAB Levothyroxine Sodium (Synthroid Tab) 25 mcg DAILYBB PO 09/25/17 10:00 10/25/17 09:59 09/25/17 11:53 25 MCG Potassium Chloride/Sodium Chloride 1,000 ml @ 80 mls/hr [id number] ONCE IV 09/25/17 16:30 09/26/17 04:59 09/25/17 16:43 80 MLS/HR Sodium Chloride 1,000 ml @ 80 mls/hr [id number] IV 09/25/17 22:15 10/25/17 22:14 Review of Systems Constitutional: + fatigue, No fever, No chills, No sweats ENT: No sore throat Respiratory: No cough, No sputum, No wheezing Cardiovascular: No chest pain, No edema Abdomen: + nausea, + diarrhea (one episode but states none today), No pain, No vomiting, No constipation, No GI bleeding Musculoskeletal: No joint pain Genitourinary - Female: No dysuria Neurologic: No numbness/tingling Endocrine: + fatigue Physical Exam Date Time Temp Pulse Resp B/P (MAP) Pulse Ox O2 Delivery O2 Flow Rate FiO2 09/25/17 16:20 Room Air 09/25/17 14:56 36.3 63 18 108/69 (82) 98 Room Air 09/25/17 10:59 Room Air 09/25/17 10:30 36.5 68 16 107/79 (88) 99 09/25/17 10:22 37.0 81 18 96 09/25/17 08:07 37.0 81 18 124/69 (87) 96 09/25/17 08:00 Room Air 09/25/17 04:00 Room Air 09/25/17 03:24 36.9 69 20 90/57 (68) 97 Room Air 09/24/17 23:59 Room Air 09/24/17 23:29 36.8 68 20 96/60 (72) 100 Room Air 09/24/17 23:15 36.9 67 16 117/75 97 Room Air General Appearance: WD/WN, no apparent distress Head: normocephalic, atraumatic Eyes: sclerae normal Respiratory/Chest: lungs clear, normal breath sounds, no respiratory distress, no accessory muscle use Cardiovascular: regular rate, rhythm, no edema, no murmur Abdomen/GI: normal bowel sounds, non tender, soft, no organomegaly Extremities/Musculoskelatal: no calf tenderness, no pedal edema, non-tender Neurologic/Psych: alert, normal mood/affect, oriented x 3 Skin: warm/dry Laboratory Results Last 24 Hours Test 09/24/17 23:30 09/25/17 00:00 09/25/17 02:20 09/25/17 06:05 Sodium Level 123 mmol/L 124 mmol/L Potassium Level 3.9 mmol/L 4.2 mmol/L Chloride Level 92 mmol/L 95 mmol/L Carbon Dioxide Level 25 mmol/L 24 mmol/L Anion Gap 6.0 mmol/L 6.0 mmol/L Blood Urea Nitrogen 12 mg/dl 11 mg/dl Creatinine 1.11 mg/dl 1.05 mg/dl Est Creatinine Clear Calc Drug Dose 45.0 ml/min 47.9 ml/min Estimated GFR () 62.9 67.3 Estimated GFR (Non- 54.3 58.1 BUN/Creatinine Ratio 10.5 10.9 Random Glucose 87 mg/dl 71 mg/dl Calcium Level 8.0 mg/dl 8.0 mg/dl Urine Osmolality 328 mOms/kg 161 mOms/kg Urine Random Sodium 74 mEq/L 26 mEq/L White Blood Count 1.30 K/uL Red Blood Count 2.91 M/uL Hemoglobin 9.8 g/dL Hematocrit 26.5 % Mean Corpuscular Volume 91.1 fL Mean Corpuscular Hemoglobin 33.7 pg Mean Corpuscular Hemoglobin Concent 37.0 g/dl Platelet Count 124 K/uL Neutrophils (%) (Auto) 17.0 % Lymphocytes (%) (Auto) 65.4 % Monocytes (%) (Auto) 9.2 % Eosinophils (%) (Auto) 3.1 % Basophils (%) (Auto) 1.5 % Neutrophils # (Auto) 0.22 K/uL Lymphocytes # (Auto) 0.85 K/uL Monocytes # (Auto) 0.12 K/uL Eosinophils # (Auto) 0.04 K/uL Basophils # (Auto) 0.02 K/uL Immature Granulocyte % (Auto) 3.8 % Immature Granulocyte # (Auto) 0.05 K/uL Giant Platelets 2+ Phosphorus Level 2.6 mg/dl Magnesium Level 1.9 mg/dl Total Bilirubin 0.5 mg/dl Direct Bilirubin 0.1 mg/dl Aspartate Amino Transf (AST/SGOT) 23 U/L Alanine Aminotransferase (ALT/SGPT) 17 U/L Alkaline Phosphatase 54 U/L Total Protein 6.1 gm/dl Albumin 3.1 gm/dl Globulin 3.0 gm/dl Albumin/Globulin Ratio 1.0 Free Thyroxine 0.45 ng/dl Free Triiodothyronine 1.73 pg/ml Test 09/25/17 09:58 09/25/17 14:38 09/25/17 21:01 Sodium Level 123 mmol/L 124 mmol/L 124 mmol/L Potassium Level 4.1 mmol/L 3.7 mmol/L 4.1 mmol/L Chloride Level 94 mmol/L 93 mmol/L 93 mmol/L Carbon Dioxide Level 21 mmol/L 23 mmol/L 24 mmol/L Anion Gap 8.0 mmol/L 8.0 mmol/L 7.0 mmol/L Blood Urea Nitrogen 12 mg/dl 12 mg/dl 13 mg/dl Creatinine 0.97 mg/dl 1.02 mg/dl 1.04 mg/dl Est Creatinine Clear Calc Drug Dose 51.9 ml/min 49.3 ml/min 48.4 ml/min Estimated GFR () 74.1 69.7 68.1 Estimated GFR (Non- 63.9 60.2 58.8 BUN/Creatinine Ratio 12.4 12.2 12.4 Random Glucose 75 mg/dl 89 mg/dl 87 mg/dl Calcium Level 8.2 mg/dl 8.4 mg/dl 8.1 mg/dl Assessment & Plan 57 year old female with stage IV breast cancer currently on treatment with faslodex and ribociclib. She is also receiving radiation therapy to the left orbit. Ribociclib is on hold due to neutropenia. SHe is admitted for hyponatremia Recommend Hold ribociclib due to neutropenia She is to follow up with Dr Mariee upon discharge - due to grade 4 neutropenia discussed with her not to restart ribociclib until she follow up with Dr Mariee regarding dose adjustments. Her ANC is <500. Recommend strict neutropenia precautions. Panculture if fever and antibiotics if fever. Avoid any sick contacts Hyponatremia- improved Management as per nephrology F/U in the office upon discharge. Please call if questions
[2017-09-26 00:01] VITALS: BP 100/66; PULSE 69; TEMP 36.7; O2SAT 93
[2017-09-26] MEDS: LEVOTHYROXINE 25 MCG TAB PO SCH (06:23)
[2017-09-26 06:48] LABS: HEMATOCRIT 25.8 % (37-47); HEMOGLOBIN 9.5 g/dL (12.0-16.0); MEAN CELL VOLUME 92.1 fL (80-100); MEAN CORPUSCULAR HEMOGLOBIN 33.9 pg (25-34); MEAN CORPUSCULAR HGB CONC 36.8 g/dl (32-36); MEAN PLATELET VOLUME 9.4 fL (7.4-10.4); PLATELET COUNT 135 K/uL (130-400); RED CELL DISTRIBUTION WIDTH CV 19.5 % (11.5-14.5); RED CELL DISTRIBUTION WIDTH SD 63.3 fL (36.4-46.3); WHITE BLOOD COUNT 1.63 K/uL (4.8-10.8)
[2017-09-26 07:07] LABS: CREATININE 0.89 mg/dl (0.60-1.20); PHOSPHORUS 2.4 mg/dl (2.5-4.9); POTASSIUM 4.1 mmol/L (3.5-5.1); TOTAL PROTEIN 6.1 gm/dl (6.4-8.2)
[2017-09-26 07:39] VITALS: BP 105/71; PULSE 59; TEMP 36.7; O2SAT 97
[2017-09-26] MEDS: CALCIUM 600MG + VIT D 400 IU TAB PO SCH (07:39)
[2017-09-26] MEDS: SODIUM CHLORIDE 0.9% 1000ML 1,000 ML IV SCH (11:20)
[2017-09-26 14:34] VITALS: BP 112/76; PULSE 58; TEMP 36.3; O2SAT 100
--- NOTE | 2017-09-26 16:30 | Nephrology Progress Note ---
Nephrology Progress Note Date of Service: Sep 26, 2017. Subjective no further c/o weakness; ambulating; taking po, no n; seen on rounds w/ at bedside about 0845 Objective Date Time Temp Pulse Resp B/P (MAP) Pulse Ox O2 Delivery O2 Flow Rate FiO2 09/26/17 14:34 36.3 58 18 112/76 (88) 100 09/26/17 08:05 Room Air 09/26/17 07:39 36.7 59 18 105/71 (82) 97 Room Air 09/26/17 00:30 Room Air 09/26/17 00:01 36.7 69 20 100/66 (77) 93 Room Air Physical Exam: General-on ra nad Eyes-eomi ENT-mmm Neck-supple Lungs-kyphotic spine diminished bl bases else clear Heart-RRR Abdomen-soft NT +B Extremities-no edema Neuro-sullivan, fluent speech Current Inpatient Medications Medications (Trade) Dose Ordered Sig/Yenni Route Start Time Stop Time Status Last Admin Dose Admin Acetaminophen (Tylenol Tab) 650 mg Q4H PRN PO 09/24/17 19:45 10/24/17 19:44 Loratadine/ Pseudoephedrine Sulfate (Claritin-D 24 Hour Tab) 1 tab DAILY PRN PO 09/24/17 21:30 10/24/17 21:29 Promethazine HCl (Phenergan Tab) 25 mg Q6H PRN PO 09/24/17 21:30 10/24/17 21:29 Calcium/Vitamin D (Caltrate Plus Tab) 1 tab DAILY PO 09/25/17 09:00 10/25/17 08:59 09/26/17 07:39 1 TAB Levothyroxine Sodium (Synthroid Tab) 25 mcg DAILYBB PO 09/25/17 10:00 10/25/17 09:59 09/26/17 06:23 25 MCG Sodium Chloride 1,000 ml @ 80 mls/hr [id number] IV 09/25/17 22:15 10/25/17 22:14 09/26/17 11:20 80 MLS/HR Last 24 Hours Test 09/25/17 21:01 09/26/17 05:43 Sodium Level 124 mmol/L 129 mmol/L Potassium Level 4.1 mmol/L 4.1 mmol/L Chloride Level 93 mmol/L 100 mmol/L Carbon Dioxide Level 24 mmol/L 20 mmol/L Anion Gap 7.0 mmol/L 9.0 mmol/L Blood Urea Nitrogen 13 mg/dl 10 mg/dl Creatinine 1.04 mg/dl 0.89 mg/dl Est Creatinine Clear Calc Drug Dose 48.4 ml/min 57.8 ml/min Estimated GFR () 68.1 82.2 Estimated GFR (Non- 58.8 70.9 BUN/Creatinine Ratio 12.4 11.8 Random Glucose 87 mg/dl 73 mg/dl Calcium Level 8.1 mg/dl 8.0 mg/dl White Blood Count 1.63 K/uL Red Blood Count 2.80 M/uL Hemoglobin 9.5 g/dL Hematocrit 25.8 % Mean Corpuscular Volume 92.1 fL Mean Corpuscular Hemoglobin 33.9 pg Mean Corpuscular Hemoglobin Concent 36.8 g/dl Platelet Count 135 K/uL Mean Platelet Volume 9.4 fL RDW Standard Deviation 63.3 fL RDW Coefficient of Variation 19.5 % Neutrophils % (Manual) 40.0 % Lymphocytes % (Manual) 54.8 % Monocytes % (Manual) 3.5 % Eosinophils % (Manual) 1.7 % Neutrophils # (Manual) 0.65 K/uL Total Absolute Neutrophils 0.65 K/uL Lymphocytes # (Manual) 0.89 K/uL Total Absolute Lymphocytes 0.89 K/uL Monocytes # (Manual) 0.06 K/uL Eosinophils # (Manual) 0.03 K/uL Phosphorus Level 2.4 mg/dl Magnesium Level 2.1 mg/dl Total Bilirubin 0.4 mg/dl Direct Bilirubin 0.1 mg/dl Aspartate Amino Transf (AST/SGOT) 19 U/L Alanine Aminotransferase (ALT/SGPT) 17 U/L Alkaline Phosphatase 52 U/L Total Protein 6.1 gm/dl Albumin 3.0 gm/dl Globulin 3.1 gm/dl Albumin/Globulin Ratio 1.0 Date/Time Source Procedure Growth Status 09/26/17 11:55 Stool C.difficile Toxin B Gene (PCR) - Final No C. difficile toxin B gene detected Complete 09/26/17 11:55 Stool Shiga Toxin Test Pending Received 09/26/17 11:55 Stool Stool Culture Pending Received Assessment & Plan 57 y/o F w/ stage 4 BRCA admitted with nonsymptomatic acute on chronic hyponatremia, presenting sNa 118. Also w/ leukopenia, anemia. Neither of her chemo agents in my reading commonly causes hyponatremia or electrolyte disorders but both certainly can cause GI sx such as N/V/D and lymphopenia/ anemia; ribociclib can cause Qt prolongation; fulvestrant can raise liver enzymes. bmp Chronic recurrent hypotonic hyponatremia behaving like dehydration though suggestions on admission of polydipsia, low solute intake -cont NS through day at 80 mL hourly -recheck bmp now (1629) >if sNa stable/ better, stop IVF and recheck in at least 6 hrs > if stable, ok for d/c from renal standpoint -did warn pt and her that sodium issues can be very unpredictable -goal po WATER intake 40-60 oz daily after discharge; ok to eat broth, high sodium or high protein foods/liquids which do NOT count toward limit/goal of water intake -recheck bmp on Thu/ x 2 wks after d/c Appreciate consult; will follow with you.
[2017-09-26 17:34] LABS: CALCIUM 7.6 mg/dl (8.5-10.1); CREATININE 0.98 mg/dl (0.60-1.20); POTASSIUM 4.2 mmol/L (3.5-5.1)
[2017-09-26] MEDS ORDERED: SYN25 PO (18:26)
--- NOTE | 2017-09-26 18:28 | Discharge Instructions ---
Discharge Instructions Date of Service Sep 26, 2017. Admission Reason for Admission: Hyponatremia Discharge Discharge Diagnosis / Problem: METASTATIC BREAST CA /HYPONATREMIA / LEVOTHYROXINE Discharge Goals Goal(s): Decrease discomfort, Improve disease control, Diagnostic testing, Therapeutic intervention Activity Recommendations Activity Limitations: resume your previous activity . Instructions / Follow-Up Instructions / Follow-Up PLEASE ESTABLISH CARE WITH A FAMILY PHYSICIAN ; HOSPITAL FOLLOW UP WITH IN A WEEK LAB WORK: BASIC METABOLIC PENAL ,MG , PHOS LEVEL ON Thursday09/28/17 AND Thursday09/30/17 kEEP WATER intake 40-60 oz daily ; ok HAVE eat broth, high sodium or high protein foods/liquids which do NOT count toward limit/goal of water intake YOU ARE STARTED ON LEVOTHYROXINE 25 MCG FOR HYPOTHYROIDISM NEED TO HAVE TSH LEVEL CHECKED IN 6 WEEKS TO MONITOR AND ADJUST DOSE IF NEEDED Current Hospital Diet Patient's current hospital diet: Regular Diet Discharge Diet Recommended Diet: Regular Diet Pending Studies Studies pending at discharge: yes List of pending studies: LAB WORK: BASIC METABOLIC PENAL ,MG , PHOS LEVEL ON Thursday09/28/17 AND Thursday09/30/17 Medical Emergencies . Who to Call and When: Medical Emergencies: If at any time you feel your situation is an emergency, please call 911 immediately. . Non-Emergent Contact Non-Emergency issues call your: Primary Care Provider . . "Provider Documentation" section prepared by Ashley Price. .
--- NOTE | 2017-09-26 23:11 | Progress Note ---
Internal Med Progress Note Date of Service: Sep 26, 2017. Provider Documentation: SUBJECTIVE: Patient remains symptomatic No complaint of nausea vomiting or diarrhea No weakness or lethargy No fever or chills Patient discharged home as soon as possible OBJECTIVE: Vital Signs-as noted below Exam: General-[no apparent distress] Eyes-[sclera nonicteric, PERRLA/EOMI] ENT-[moist oral mucosa] Neck-[no JVD] Lungs-[clear to auscultation no wheezes or rales] Heart-[regular S1-S2] Abdomen-[soft nontender] Extremities-[no lower extremity edema no Rash] Neuro-[alert awake oriented 3 no focal neurological deficit] Lab data as noted below. ASSESSMENT & PLAN: HYPONATREMIA : improved presented with Na 118 Appreciate input from nephrology slow correction of sodium with with frequent check of basic metabolic panel Na 129 this AM Patient does not demonstrate any acute neurological symptoms -ordered NSS @ 80 ml/hr by Nephrology -repeat BMP at 5 : 30 pm : Na 128 -ordered to DC IVF repeat BMP in AM -pt can be discharged home tomorrow if Na level remains stable -goal po WATER intake 40-60 oz daily after discharge; ok to eat broth, high sodium or high protein foods/liquids which do NOT count toward limit/goal of water intake -recheck bmp on Thu/ x 2 wks after d/c STAGE 4 BREAST CA ON CHEMO : Diagnosed with left breast lobular carcinoma in 2014 Patient has been following with hematology oncology Dr. Mariee - completed 11 cycles of chemotherapy of weekly paclitaxel -status post bilateral mastectomy lymph node dissection 2015 Completed radiation treatment of the left chest wall and left axilla in 11/[address] scan shows progression of disease with bone metastases in T12 recent ER visit for nausea vomiting dehydration on August 07/2018 CT head showed tumor involvement of the left orbit and multiple skull bone lesions. -on femora /Ribociclib since July 2017 -Continue scheduled radiation treatment while inpatient -Radiation oncology consult ABSOLUTE NEUTROPENIA /PANCYTOPENIA ; -Due to recent chemo -No reported fever /chills or cough -Follow daily CBC with differential -Neutropenic precaution -Hematology oncology consulted-appreciate input DIARRHEA : stool for C. difficile negative FULL CODE ; DVT PROPHYLAXIS : moderate to high risk given metastatic breast CA Relative contraindication for Lovenox /subcu heparin -due to thrombocytopenia and anemia ordered for SCD and teds Encourage ambulate DISPOSITION Possible discharge home tomorrow Patient will continue to follow with hematology oncology Dr. Mariee for chemo treatment for metastatic breast cancer Nephrology follow-up with Dr. Scarlett Hummel Vital Signs: Date Time Temp Pulse Resp B/P (MAP) Pulse Ox O2 Delivery O2 Flow Rate FiO2 09/26/17 19:00 Room Air 09/26/17 16:00 Room Air 09/26/17 14:34 36.3 58 18 112/76 (88) 100 09/26/17 08:05 Room Air 09/26/17 07:39 36.7 59 18 105/71 (82) 97 Room Air 09/26/17 00:30 Room Air 09/26/17 00:01 36.7 69 20 100/66 (77) 93 Room Air Lab Results: Results Past 24 Hours Test 09/26/17 05:43 09/26/17 17:07 Range/Units White Blood Count 1.63 4.8-10.8 K/uL Red Blood Count 2.80 4.2-5.4 M/uL Hemoglobin 9.5 12.0-16.0 g/dL Hematocrit 25.8 37-47 % Mean Corpuscular Volume 92.1 80-100 fL Mean Corpuscular Hemoglobin 33.9 25-34 pg Mean Corpuscular Hemoglobin Concent 36.8 32-36 g/dl Platelet Count 135 130-400 K/uL Mean Platelet Volume 9.4 7.4-10.4 fL RDW Standard Deviation 63.3 36.4-46.3 fL RDW Coefficient of Variation 19.5 11.5-14.5 % Neutrophils % (Manual) 40.0 % Lymphocytes % (Manual) 54.8 % Monocytes % (Manual) 3.5 % Eosinophils % (Manual) 1.7 % Neutrophils # (Manual) 0.65 1.4-6.5 K/uL Total Absolute Neutrophils 0.65 1.4-6.5 K/uL Lymphocytes # (Manual) 0.89 1.2-3.4 K/uL Total Absolute Lymphocytes 0.89 1.2-3.4 K/uL Monocytes # (Manual) 0.06 0.11-0.59 K/uL Eosinophils # (Manual) 0.03 0-0.5 K/uL Sodium Level 129 128 136-145 mmol/L Potassium Level 4.1 4.2 3.5-5.1 mmol/L Chloride Level 100 99 98-107 mmol/L Carbon Dioxide Level 20 23 21-32 mmol/L Anion Gap 9.0 6.0 3-11 mmol/L Blood Urea Nitrogen 10 9 7-18 mg/dl Creatinine 0.89 0.98 0.60-1.20 mg/dl Est Creatinine Clear Calc Drug Dose 57.8 52.5 ml/min Estimated GFR () 82.2 73.2 Estimated GFR (Non- 70.9 63.1 BUN/Creatinine Ratio 11.8 9.6 10-20 Random Glucose 73 84 70-99 mg/dl Calcium Level 8.0 7.6 8.5-10.1 mg/dl Phosphorus Level 2.4 2.5-4.9 mg/dl Magnesium Level 2.1 1.8-2.4 mg/dl Total Bilirubin 0.4 0.2-1 mg/dl Direct Bilirubin 0.1 0-0.2 mg/dl Aspartate Amino Transf (AST/SGOT) 19 15-37 U/L Alanine Aminotransferase (ALT/SGPT) 17 12-78 U/L Alkaline Phosphatase 52 45-117 U/L Total Protein 6.1 6.4-8.2 gm/dl Albumin 3.0 3.4-5.0 gm/dl Globulin 3.1 2.5-4.0 gm/dl Albumin/Globulin Ratio 1.0 0.9-2 Microbiology Results 09/26/17 C.difficile Toxin B Gene (PCR) - Final, Complete No C. difficile toxin B gene detected 09/26/17 Shiga Toxin Test, Received Pending 09/26/17 Stool Culture, Received Pending
[2017-09-26 23:43] VITALS: BP 107/71; PULSE 83; TEMP 36.7; O2SAT 100
[2017-09-27] MEDS: LEVOTHYROXINE 25 MCG TAB PO SCH (05:52)
[2017-09-27 06:54] LABS: HEMATOCRIT 28.6 % (37-47); HEMOGLOBIN 10.4 g/dL (12.0-16.0); MEAN CELL VOLUME 92.9 fL (80-100); MEAN CORPUSCULAR HEMOGLOBIN 33.8 pg (25-34); MEAN CORPUSCULAR HGB CONC 36.4 g/dl (32-36); MEAN PLATELET VOLUME 8.9 fL (7.4-10.4); PLATELET COUNT 142 K/uL (130-400); RED CELL DISTRIBUTION WIDTH CV 20.2 % (11.5-14.5); RED CELL DISTRIBUTION WIDTH SD 65.7 fL (36.4-46.3); WHITE BLOOD COUNT 1.88 K/uL (4.8-10.8)
[2017-09-27 07:07] LABS: CALCIUM 8.5 mg/dl (8.5-10.1); CREATININE 1.01 mg/dl (0.60-1.20); PHOSPHORUS 2.4 mg/dl (2.5-4.9); POTASSIUM 4.6 mmol/L (3.5-5.1)
[2017-09-27 07:18] LABS: BASO % 2.7 %; BASO ABS # 0.05 K/uL (0-0.2); EOS % 2.1 %; EOS ABS # 0.04 K/uL (0-0.5); IG# 0.01 K/uL (0.00-0.02); LYMPH ABS # 1.11 K/uL (1.2-3.4); MONO % 13.8 %; MONO ABS # 0.26 K/uL (0.11-0.59); NEUT % 21.9 %; NEUT ABS # 0.41 K/uL (1.4-6.5)
[2017-09-27] MEDS ORDERED: SODIUM PHOSPHATE 3 MMOL/1 ML INFUSION IV STA (07:54)
[2017-09-27 08:00] VITALS: BP 96/64; PULSE 62; TEMP 36.6; O2SAT 96
[2017-09-27] MEDS ORDERED: SODIUM PHOSPHATE IV ONE (08:15)
[2017-09-27] MEDS ORDERED: SODIUM CHLORIDE 0.9% IV ONE (08:15)
[2017-09-27] MEDS: CALCIUM 600MG + VIT D 400 IU TAB PO SCH (08:27)
--- NOTE | 2017-09-27 09:49 | Discharge Summary ---
Discharge Summary Date of Service Sep 27, 2017. Discharge Summary Admission Date: Sep 24, 2017 at 18:22 Discharge Date: Sep 27, 2017 Discharge Disposition: Home Principal Diagnosis: METASTATIC BREAST CA /HYPONATREMIA /LEVOTHYROXINE Consultations: John nephrology Dr. Scarlett Garcia Hematology oncology Radiation oncology Medication Reconciliation New Medications: Levothyroxine Sodium (Synthroid) 25 Mcg Tab 25 MCG PO DAILYBB for 30 Days, #30 TAB 1 Refill Continued Medications: Calcium Citrate-Vitamin D (Calcium Citrate + D) 1 Tab Tab 1 TAB PO DAILY 250-200mg Fulvestrant (Faslodex) 250 Mg/5 Ml Inj 1 UD will start monthly , taking every other week now Loratadine & Pseudoephedrine (Claritin-D 24 Hour) 1 Tab Tab 1 TAB PO DAILY PRN for Nasal Congestion for 30 Days, #30 TAB 3 Refills Promethazine Hcl (Phenergan) 25 Mg Tab 25 MG PO Q6H PRN for Nausea, #20 TAB Ribociclib Succinate (Kisqali) 200 Mg Tab 600 MG PO DAILY takes 3 weeks on and 1 week off Admission Information HPI (per Admitting provider): This is a 57-year-old female with metastatic breast cancer metastases to bones- including thoracic spine/T12 vertebral body, sacrum, recent CAT scan of head on July 2017 showed metastatic lesion to left orbit, multiple skull bone lesions Patient follows with hematology oncology Dr. Mariee Underwent multiple rounds of chemo and radiation treatment. Patient recently started on Femora/Ribociclib tx Outpatient lab at [facility] drawn today showed hyponatremia sodium 124 last lab on 09/08/2017 sodium was 139. Patient was asked to come to the ER for evaluation by hematology clinic. Lab drawn at ER showed sodium 118 Patient denies of any headache no confusional state, no dizzy spells or lightheadedness No nausea vomiting or poor p.o. intake recently Had 2 episodes of diarrhea earlier today, She had an ER visit at [facility] August 07, 2017 for nausea vomiting, dehydration, confusional state Required IV hydration Since then she has been drinking plenty of water Mention drinks approximately 72 Oz water a day. Physical Exam (per Admitting): General Appearance: no apparent distress Head: normocephalic, atraumatic Eyes: normal inspection, PERRL, EOMI, sclerae normal Neck: no JVD, no carotid bruits, trachea midline Respiratory/Chest: chest non-tender, lungs clear, normal breath sounds, no respiratory distress Cardiovascular: regular rate, rhythm, no edema, no JVD, normal peripheral pulses Abdomen/GI: normal bowel sounds, non tender, soft Extremities/Musculoskelatal: no pedal edema Neurologic/Psych: no motor/sensory deficits, alert, normal mood/affect Skin: normal color, warm/dry, no rash Hospital Course HYPONATREMIA : improved sodium level 130 today presented with Na 118 Appreciate input from nephrology No sign of any neurological symptoms -Stable to be discharged home today -goal po WATER intake 40-60 oz daily after discharge; ok to eat broth, high sodium or high protein foods/liquids which do NOT count toward limit/goal of water intake -recheck bmp on Thu/ x 2 wks after d/c STAGE 4 BREAST CA ON CHEMO : Diagnosed with left breast lobular carcinoma in 2014 Patient has been following with hematology oncology Dr. Mariee - completed 11 cycles of chemotherapy of weekly paclitaxel -status post bilateral mastectomy lymph node dissection 2015 Completed radiation treatment of the left chest wall and left axilla in 11/[address] scan shows progression of disease with bone metastases in T12 recent ER visit for nausea vomiting dehydration on August 07/2018 CT head showed tumor involvement of the left orbit and multiple skull bone lesions. -on femora /Ribociclib since July 2017 -Continue scheduled radiation treatment while inpatient -Radiation oncology consulted ABSOLUTE NEUTROPENIA /PANCYTOPENIA ; -Due to recent chemo -Improved -No reported fever /chills or cough -Follow daily CBC with differential -Neutropenic precaution -Hematology oncology consulted-appreciate input DIARRHEA : stool for C. difficile negative FULL CODE ; DVT PROPHYLAXIS : moderate to high risk given metastatic breast CA Relative contraindication for Lovenox /subcu heparin -due to thrombocytopenia and anemia ordered for SCD and teds Encourage ambulate DISPOSITION Stable to be discharge home today Patient will continue to follow with hematology oncology Dr. Mariee for chemo treatment for metastatic breast cancer Nephrology follow-up with Dr. Scarlett Hummel Total time spent on discharge = 35MINS This includes examination of the patient, discharge planning, medication reconciliation, and communication with other providers. Discharge Instructions DI: Medical v5 Discharge Instructions Date of Service Sep 26, 2017. Admission Reason for Admission: Hyponatremia Discharge Discharge Diagnosis / Problem: METASTATIC BREAST CA /HYPONATREMIA / LEVOTHYROXINE Discharge Goals Goal(s): Decrease discomfort, Improve disease control, Diagnostic testing, Therapeutic intervention Activity Recommendations Activity Limitations: resume your previous activity . Instructions / Follow-Up Instructions / Follow-Up PLEASE ESTABLISH CARE WITH A FAMILY PHYSICIAN ; HOSPITAL FOLLOW UP WITH IN A WEEK LAB WORK: BASIC METABOLIC PENAL ,MG , PHOS LEVEL ON Thursday09/28/17 AND Thursday09/30/17 kEEP WATER intake 40-60 oz daily ; ok HAVE eat broth, high sodium or high protein foods/liquids which do NOT count toward limit/goal of water intake YOU ARE STARTED ON LEVOTHYROXINE 25 MCG FOR HYPOTHYROIDISM NEED TO HAVE TSH LEVEL CHECKED IN 6 WEEKS TO MONITOR AND ADJUST DOSE IF NEEDED Current Hospital Diet Patient's current hospital diet: Regular Diet Discharge Diet Recommended Diet: Regular Diet Pending Studies Studies pending at discharge: yes List of pending studies: LAB WORK: BASIC METABOLIC PENAL ,MG , PHOS LEVEL ON Thursday09/28/17 AND Thursday09/30/17 Medical Emergencies . Who to Call and When: Medical Emergencies: If at any time you feel your situation is an emergency, please call 911 immediately. . Non-Emergent Contact Non-Emergency issues call your: Primary Care Provider . . "Provider Documentation" section prepared by Ashley Priec. . Additional Copies To Clay Mariee M.D. Andersen, Stacy L., MD
[2017-09-27 10:14] VITALS: BP 96/64; PULSE 62; TEMP 36.6; O2SAT 96
== END 2017-09-27 12:30 | disposition home or self-care (01) | DRG 640 ==
LOC: C.EDB 15:06 → C.2T 18:22 → UNDOADMIN 18:22 → ENRESERV 18:31 → C.2T 09-25 10:29 → C.4E 09-25 10:29
PROVIDERS: ADMIT Hospitalist; ATTEND Hospitalist
DX: E87.1 Hypo-osmolality and hyponatremia (principal); D61.810 Antineoplastic chemotherapy induced pancytopenia; C79.51 Secondary malignant neoplasm of bone; C50.919 Malignant neoplasm of unspecified site of unspecified female breast; R19.7 Diarrhea, unspecified; Z88.0 Allergy status to penicillin; Z88.2 Allergy status to sulfonamides

== ENCOUNTER 2017-11-06 17:16 | Inpatient (IN) | payer BC ==
[~2017-11-06] VITALS: Ht 152.4 cm; Wt 61.4 kg
[~2017-11-06 17:16] MED LIST changes: +SYN25 PO
[2017-11-06] MEDS ORDERED: SODIUM CHLORIDE 0.9% 500ML 500 ML IV STA (19:43)
[2017-11-06] MEDS ORDERED: DENOSUMAB INJ (20:22)
--- NOTE | 2017-11-06 20:37 | EMERGENCY ROOM VISIT NOTE ---
History Report prepared by Ginger: Annette Hayes Under the Supervision of: Dr. Doc Joe M.D. First contact with patient: 19:32 Chief Complaint: ABNORMAL LABS Stated Complaint: LOW SODIUM History of Present Illness The patient is a 57 year old female who presents to the Emergency Room with complaints of persistent hyponatremia starting 1 week ago. The patient was sent to the ED by nephrology for hyponatremia. Her sodium was 124 last week and 121 today. She is on a cancer drug called Kisqali which has causes her to become hyponatremic. She notes that the drug is known to cause neutropenia as well. She takes Kisqali everyday for 3 weeks and then takes 1 week off. She has been off Kisqali for 1 week now. She was admitted to the hospital 2 months ago for hyponatremia. She has been feeling fatigued for the past couple of days. She reports chills. Her notes that she has been sluggish. She is not feeling confused yet. She denies any leg swelling, vomiting, diarrhea, fever, cough, or urinary symptoms. Source of History: patient, spouse/significant other Onset: 1 week ago Position: other (labs) Symptom Intensity: 121 Quality: other (hyponatremia) Timing: other (persistent) Associated Symptoms: + chills, + fatigue, No fevers, No cough, No vomiting, No diarrhea, No urinary symptoms Review of Systems See HPI for pertinent positives & negatives. A total of 10 systems reviewed and were otherwise negative. Past Medical & Surgical Medical Problems: (1) Breast cancer, stage 4 (2) Hyponatremia (3) Hypotension (4) Hypothyroidism (5) Metastasis to bone (6) Metastasis to brain Surgical Problems: (1) S/P mastectomy, bilateral Family History Cancer Hypertension Social History Smoking Status: Never Smoker Alcohol Use: none Drug Use: none Marital Status: Housing Status: lives with family Current/Historical Medications Scheduled Calcium Citrate-Vitamin D (Calcium Citrate + D), 1 TAB PO DAILY Fulvestrant (Faslodex), 1 MONTHLY Fulvestrant (Faslodex), 500 MG IM UD Levothyroxine Sodium (Synthroid), 25 MCG PO DAILYBB Ribociclib Succinate (Kisqali), 400 MG PO DAILY [exgeva], 1 DOSE INJ q3mos. Scheduled PRN Loratadine & Pseudoephedrine (Claritin-D 24 Hour), 1 TAB PO DAILY PRN for Nasal Congestion Promethazine Hcl (Phenergan), 25 MG PO Q6H PRN for Nausea Allergies Coded Allergies: Penicillins (Verified Allergy, Unknown, 09/24/17) Sulfa Drugs (Verified Allergy, Unknown, 09/24/17) Uncoded Allergies: gladolinium (Adverse Reaction, Intermediate, Could not talk - very disoriented , 09/11/15) Physical Exam Vital Signs Date Time Temp Pulse Resp B/P (MAP) Pulse Ox O2 Delivery O2 Flow Rate FiO2 11/06/17 20:45 71 18 110/64 100 Room Air 11/06/17 17:31 37.4 67 20 111/73 100 Room Air Physical Exam GENERAL: Patient is in no acute distress. HEENT: No acute trauma, normocephalic atraumatic, mucous membranes moist, no nasal congestion, no scleral icterus. NECK: No stridor, no adenopathy, no meningismus, trachea is midline. LUNGS: Clear to auscultation bilaterally, no wheeze, no rhonchi, breath sounds equal. HEART: Without murmurs gallops or rubs, regular rate and rhythm. ABDOMEN: Soft, nontender, bowel sounds positive, no hernias, no peritonitis. EXTREMITIES: No cyanosis or edema, full range of motion of all the joints without pain or difficulty, no signs for acute trauma. NEUROLOGIC: Oriented x 3, no acute motor or sensory deficits, no focal weakness. SKIN: No rash, no jaundice, no diaphoresis. Medical Decision & Procedures Laboratory Results Test 11/06/17 20:35 Red Blood Cell Morphology Unremarkable Osmolality 244 mOsm/kg (280-300) Magnesium Level 2.1 mg/dl (1.8-2.4) Total Bilirubin 0.7 mg/dl (0.2-1) Aspartate Amino Transf (AST/SGOT) 29 U/L (15-37) Alanine Aminotransferase (ALT/SGPT) 17 U/L (12-78) Alkaline Phosphatase 56 U/L (45-117) Total Protein 6.4 gm/dl (6.4-8.2) Albumin 2.9 gm/dl (3.4-5.0) Globulin 3.5 gm/dl (2.5-4.0) Albumin/Globulin Ratio 0.8 (0.9-2) Thyroid Stimulating Hormone (TSH) 3.150 uIu/ml (0.300-4.500) Free Thyroxine 0.81 ng/dl (0.80-1.60) Laboratory results reviewed by me. Medications Administered Medications (Trade) Dose Ordered Sig/Yenni Route Start Time Stop Time Status Last Admin Dose Admin Sodium Chloride 500 ml @ 999 mls/hr Q31M STAT IV 11/06/17 19:43 11/06/17 20:13 DC 11/06/17 20:44 999 MLS/HR ECG Per My Interpretation Indication: weakness Rate (beats per minute): 67 Rhythm: normal sinus Findings: other (LVH, no ST elevation, no PVC) ED Course 1936: The patient was evaluated in room C12B. A complete history and physical exam was performed. 1942: Sodium Chloride 500 ml @ 999 mls/hr IV. 2127: I discussed the patient's case with [facility]. The patient will be evaluated for further management. 2133: Upon reexamination the patient is stable. I discussed results and treatment plan with the patient. She verbalizes agreement and understanding. The patient will be evaluated for further management. Medical Decision Differential diagnoses considered include medication reaction, hyponatremia, renal failure, liver failure, electrolyte imbalance, anemia, infection, UTI. The patient does have a low white count and hemoglobin, this is baseline though for her. Renal panel testing shows hyponatremia with a sodium of 120. No kidney failure. No hepatitis. The patient appears to be in a euthyroid state. On exam, the patient was not febrile or toxic. Patient presents with weakness and fatigue. She has a history of hyponatremia and this is the case again today. She was given IV saline. A hospital stay is warranted. I spoke to case management, I spoke with the patient. The on-call hospitalist was consulted. Medication Reconcilliation Current Medication List: was personally reviewed by me Blood Pressure Screening Patient's blood pressure: Normal blood pressure Blood pressure disposition: Did not require urgent referral Consults Time Called: 2125 [facility] Return[facility] Call: [phone] Discussed the patient's case. The patient will be evaluated for further management. Impression Primary Impression: Hyponatremia Additional Impressions: Anemia Weakness Scribe Attestation The scribe's documentation has been prepared under my direction and personally reviewed by me in its entirety. I confirm that the note above accurately reflects all work, treatment, procedures, and medical decision making performed by me. Departure Information Dispostion Being Evaluated By Hospitalist Referrals Zeb Madrigal MD (PCP) Patient Instructions My [facility] Problem Qualifiers
[2017-11-06 21:18] LABS: HEMATOCRIT 26.3 % (37-47); HEMOGLOBIN 9.6 g/dL (12.0-16.0); MEAN CELL VOLUME 95.6 fL (80-100); MEAN CORPUSCULAR HEMOGLOBIN 34.9 pg (25-34); MEAN CORPUSCULAR HGB CONC 36.5 g/dl (32-36); MEAN PLATELET VOLUME 9.7 fL (7.4-10.4); PLATELET COUNT 316 K/uL (130-400); RED CELL DISTRIBUTION WIDTH CV 17.3 % (11.5-14.5); RED CELL DISTRIBUTION WIDTH SD 60.9 fL (36.4-46.3); WHITE BLOOD COUNT 1.43 K/uL (4.8-10.8)
[2017-11-06 21:26] LABS: ALBUMIN 2.9 gm/dl (3.4-5.0); CALCIUM 7.4 mg/dl (8.5-10.1); CREATININE 0.8 mg/dl (0.60-1.20); POTASSIUM 3.9 mmol/L (3.5-5.1)
[2017-11-06 21:35] LABS: BASO % 1.4 %; BASO ABS # 0.02 K/uL (0-0.2); EOS % 2.1 %; EOS ABS # 0.03 K/uL (0-0.5); IG# 0.01 K/uL (0.00-0.02); LYMPH % 37.8 %; LYMPH ABS # 0.54 K/uL (1.2-3.4); MONO % 17.5 %; MONO ABS # 0.25 K/uL (0.11-0.59); NEUT % 40.5 %; NEUT ABS # 0.58 K/uL (1.4-6.5)
[2017-11-06 21:38] LABS: TOTAL PROTEIN 6.4 gm/dl (6.4-8.2)
[2017-11-06] MEDS ORDERED: ONDANSETRON INJ 2 MG/ML 2 ML VIAL IV PRN (22:00)
[2017-11-06] MEDS ORDERED: FULV250I2 IM (22:31)
[2017-11-06 22:33] VITALS: BP 113/78; PULSE 80; TEMP 37; O2SAT 94; Ht 152.4 cm; Wt 61.4 kg
[2017-11-06] MEDS ORDERED: PROMETHAZINE HCL 25 MG TAB PO PRN (22:45)
--- NOTE | 2017-11-06 22:53 | History and Physical ---
History & Physical Date & Time of Service: Nov 06, 2017 at 22:37 Chief Complaint: Hyponatremia Primary Care Physician: Zeb Madrigal MD History of Present Illness Source: patient, spouse, clinic records, hospital records 57-year-old female with stage IV breast cancer with known brain metastases presents to the emergency room with complaints of persistent hyponatremia. She was sent to the emergency room by her neck just after test results revealed a sodium that was falling. Her sodium was 124 last week and 121 today. In the ER she is 120. She reports some generalized weakness for the last 2-3 days but otherwise is asymptomatic. She reports drinking approximately 40-60 ounces of water daily and is on no specific fluid restriction at this time. Her appetite has been poor, she has had cold intolerance, she is fatigued to the point where she is not interested in food or eating. She reports losing a couple of pounds but no more than that. She has no acute visual changes, denies headache, denies nausea vomiting or diarrhea. She was recently admitted in September for the same issue and was seen by nephrology. She is also neutropenic and currently off her chemotherapy for at least the last week. She denies any urinary tract symptoms, coughing or other infectious symptoms at this time. Past Medical/Surgical History Medical Problems: (1) Breast cancer, stage 4 Permanent Comment: DIAGNOSIS: 1. Left breast, invasive lobular carcinoma, grade 2, ER positive, OR weakly positive, Her2 negative, [id number], stage IV with metastatic disease to bone 2. Right breast, invasive lobular carcinoma, grade 2, ER positive, OR negative, Her2 negative, [id number], stage IV 3. Diplopia-MRI revealing left thalamus lesion suspicious for metastasis. Bony metastasis of the calvarium. Left medial rectus muscle soft tissue mass. TREATMENT: 1. Neoadjuvant chemotherapy - 11 cycles - paclitaxel (Dr. Clay Mariee) 2. Bilateral mastectomy (Left - ALND, Right - SLN) - 08/21/2015 (Dr. Quyen Franks) 3. Currently on Arimidex 4. Status post completion of radiation therapy the chest wall, supraclavicular area, and axilla completed 12/03/2015 5. Status post completion of radiation therapy to the left orbit October 09, 2017. She received 3375 cGy 6. Status post completion of radiation therapy to the brain utilizing SBRT completed October 16, 2017. She received 1800 cGy Status: Chronic (2) Hypotension Status: Chronic (3) Hypothyroidism Status: Chronic (4) Metastasis to bone Status: Chronic (5) Metastasis to brain Status: Chronic Surgical Problems: (1) S/P mastectomy, bilateral Status: Resolved Family History Cancer Hypertension Social History Smoking Status: Never Smoker Smokeless Tobacco Use: No Alcohol Use: socially Drug Use: none Marital Status: Housing status: lives with significant other Immunizations History of Influenza Vaccine: Unknown History of Tetanus Vaccine?: Yes History of Pneumococcal: Unknown History of Hepatitis B Vaccine: Unknown Allergies Coded Allergies: Penicillins (Verified Allergy, Unknown, 09/24/17) Sulfa Drugs (Verified Allergy, Unknown, 09/24/17) Uncoded Allergies: gladolinium (Adverse Reaction, Intermediate, Could not talk - very disoriented , 09/11/15) Home Medications Scheduled Calcium Citrate-Vitamin D (Calcium Citrate + D), 1 TAB PO DAILY Fulvestrant (Faslodex), 1 MONTHLY Fulvestrant (Faslodex), 500 MG IM UD Levothyroxine Sodium (Synthroid), 25 MCG PO DAILYBB Ribociclib Succinate (Kisqali), 400 MG PO DAILY [exgeva], 1 DOSE INJ q3mos. Scheduled PRN Loratadine & Pseudoephedrine (Claritin-D 24 Hour), 1 TAB PO DAILY PRN for Nasal Congestion Promethazine Hcl (Phenergan), 25 MG PO Q6H PRN for Nausea Review of Systems At least 10 systems were reviewed and negative except as indicated in HPI above. Physical Exam Vital Signs Date Time Temp Pulse Resp B/P (MAP) Pulse Ox O2 Delivery O2 Flow Rate FiO2 11/06/17 22:19 74 18 99/70 98 11/06/17 20:45 71 18 110/64 100 Room Air 11/06/17 17:31 37.4 67 20 111/73 100 Room Air General Appearance: WD/WN, no apparent distress Head: normocephalic, atraumatic Eyes: normal inspection, PERRL, sclerae normal, + pertinent finding (Mucous membranes moist) ENT: normal ENT inspection, hearing grossly normal, pharynx normal Neck: supple, no adenopathy, trachea midline Respiratory/Chest: chest non-tender, lungs clear, normal breath sounds, no respiratory distress, no accessory muscle use, + pertinent finding (Port to right anterior chest wall) Cardiovascular: regular rate, rhythm, no edema, no gallop, no JVD, no murmur, normal peripheral pulses Abdomen/GI: normal bowel sounds, non tender, soft Extremities/Musculoskelatal: normal inspection, + pertinent finding (No swelling or edema) Neurologic/Psych: no motor/sensory deficits, alert, normal mood/affect, oriented x 3 Skin: normal color, warm/dry, no rash Diagnostics Laboratory Results 11/06/17 20:35 Red Blood Count 2.75, Mean Corpuscular Volume 95.6, Mean Corpuscular Hemoglobin 34.9, Mean Corpuscular Hemoglobin Concent 36.5, Mean Platelet Volume 9.7, Neutrophils (%) (Auto) 40.5, Lymphocytes (%) (Auto) 37.8, Monocytes (%) (Auto) 17.5, Eosinophils (%) (Auto) 2.1, Basophils (%) (Auto) 1.4, Neutrophils # (Auto ) 0.58, Lymphocytes # (Auto) 0.54, Monocytes # (Auto) 0.25, Eosinophils # (Auto ) 0.03, Basophils # (Auto) 0.02 11/06/17 20:35 Test 11/06/17 20:35 11/06/17 21:58 White Blood Count 1.43 K/uL (4.8-10.8) Red Blood Count 2.75 M/uL (4.2-5.4) Hemoglobin 9.6 g/dL (12.0-16.0) Hematocrit 26.3 % (37-47) Mean Corpuscular Volume 95.6 fL (80-100) Mean Corpuscular Hemoglobin 34.9 pg (25-34) Mean Corpuscular Hemoglobin Concent 36.5 g/dl (32-36) Platelet Count 316 K/uL (130-400) Mean Platelet Volume 9.7 fL (7.4-10.4) Neutrophils (%) (Auto) 40.5 % Lymphocytes (%) (Auto) 37.8 % Monocytes (%) (Auto) 17.5 % Eosinophils (%) (Auto) 2.1 % Basophils (%) (Auto) 1.4 % Neutrophils # (Auto) 0.58 K/uL (1.4-6.5) Lymphocytes # (Auto) 0.54 K/uL (1.2-3.4) Monocytes # (Auto) 0.25 K/uL (0.11-0.59) Eosinophils # (Auto) 0.03 K/uL (0-0.5) Basophils # (Auto) 0.02 K/uL (0-0.2) RDW Standard Deviation 60.9 fL (36.4-46.3) RDW Coefficient of Variation 17.3 % (11.5-14.5) Immature Granulocyte % (Auto) 0.7 % Immature Granulocyte # (Auto) 0.01 K/uL (0.00-0.02) Red Blood Cell Morphology Unremarkable Anion Gap 8.0 mmol/L (3-11) Est Creatinine Clear Calc Drug Dose 62.8 ml/min Estimated GFR () 93.5 Estimated GFR (Non- 80.7 BUN/Creatinine Ratio 10.5 (10-20) Calcium Level 7.4 mg/dl (8.5-10.1) Magnesium Level 2.1 mg/dl (1.8-2.4) Total Bilirubin 0.7 mg/dl (0.2-1) Aspartate Amino Transf (AST/SGOT) 29 U/L (15-37) Alanine Aminotransferase (ALT/SGPT) 17 U/L (12-78) Alkaline Phosphatase 56 U/L (45-117) Total Protein 6.4 gm/dl (6.4-8.2) Albumin 2.9 gm/dl (3.4-5.0) Globulin 3.5 gm/dl (2.5-4.0) Albumin/Globulin Ratio 0.8 (0.9-2) Thyroid Stimulating Hormone (TSH) 3.150 uIu/ml (0.300-4.500) Free Thyroxine 0.81 ng/dl (0.80-1.60) Results Past 24 Hours Test 11/06/17 20:35 11/06/17 21:58 Range/Units White Blood Count 1.43 4.8-10.8 K/uL Red Blood Count 2.75 4.2-5.4 M/uL Hemoglobin 9.6 12.0-16.0 g/dL Hematocrit 26.3 37-47 % Mean Corpuscular Volume 95.6 80-100 fL Mean Corpuscular Hemoglobin 34.9 25-34 pg Mean Corpuscular Hemoglobin Concent 36.5 32-36 g/dl Platelet Count 316 130-400 K/uL Mean Platelet Volume 9.7 7.4-10.4 fL Neutrophils (%) (Auto) 40.5 % Lymphocytes (%) (Auto) 37.8 % Monocytes (%) (Auto) 17.5 % Eosinophils (%) (Auto) 2.1 % Basophils (%) (Auto) 1.4 % Neutrophils # (Auto) 0.58 1.4-6.5 K/uL Lymphocytes # (Auto) 0.54 1.2-3.4 K/uL Monocytes # (Auto) 0.25 0.11-0.59 K/uL Eosinophils # (Auto) 0.03 0-0.5 K/uL Basophils # (Auto) 0.02 0-0.2 K/uL RDW Standard Deviation 60.9 36.4-46.3 fL RDW Coefficient of Variation 17.3 11.5-14.5 % Immature Granulocyte % (Auto) 0.7 % Immature Granulocyte # (Auto) 0.01 0.00-0.02 K/uL Red Blood Cell Morphology Unremarkable Sodium Level 120 136-145 mmol/L Potassium Level 3.9 3.5-5.1 mmol/L Chloride Level 91 98-107 mmol/L Carbon Dioxide Level 21 21-32 mmol/L Anion Gap 8.0 3-11 mmol/L Blood Urea Nitrogen 8 7-18 mg/dl Creatinine 0.80 0.60-1.20 mg/dl Est Creatinine Clear Calc Drug Dose 62.8 ml/min Estimated GFR () 93.5 Estimated GFR (Non- 80.7 BUN/Creatinine Ratio 10.5 10-20 Random Glucose 78 70-99 mg/dl Calcium Level 7.4 8.5-10.1 mg/dl Magnesium Level 2.1 1.8-2.4 mg/dl Total Bilirubin 0.7 0.2-1 mg/dl Aspartate Amino Transf (AST/SGOT) 29 15-37 U/L Alanine Aminotransferase (ALT/SGPT) 17 12-78 U/L Alkaline Phosphatase 56 45-117 U/L Total Protein 6.4 6.4-8.2 gm/dl Albumin 2.9 3.4-5.0 gm/dl Globulin 3.5 2.5-4.0 gm/dl Albumin/Globulin Ratio 0.8 0.9-2 Thyroid Stimulating Hormone (TSH) 3.150 0.300-4.500 uIu/ml Free Thyroxine 0.81 0.80-1.60 ng/dl EKG SR 67, no ST changes concerning for ischemia. No evidence of blocks. Impression Assessment and Plan 57-year-old female with stage IV breast cancer with known brain metastases and bone metastases presents with hyponatremia. 1. Hyponatremia-was being managed by nephrology as outpatient and noted to be falling on serial testing. The patient does not appear hypovolemic and denies any nausea vomiting or diarrhea, however she has had reported low p.o. intake from decreased appetite. She is very specific about her water intake and polydipsia is a possible contribution. Still awaiting serum and urine osmolalities. She received 500 cc of normal saline in the ER. Will place her on 80 cc an hour of normal saline and trend her sodium every 4 hours beginning 2 hours from now. Nephrology consulted. Will fluid restrict to to 2 L. 2. Pancytopenia-secondary to chemotherapy 3. Neutropenia-secondary to chemotherapy. No infectious symptoms are reported at this time. Continue neutropenic precautions and trend CBC with differential daily. Continue holding chemotherapy at this time. 4. Breast cancer-stage IV with bone and brain metastases. No acute changes at this time. Patient denies headaches or new visual changes. Will continue to monitor. 5. Hypothyroidism-cold intolerance however suspect secondary to ongoing processes above. TSH is normal. Continue 25 mcg Synthroid daily per outpatient regimen. 6. Generalized weakness-strength testing is 5 out of 5 throughout however, patient is extremely fatigued. PT OT to evaluate. DVT prophylaxis-Lovenox Full code as per my discussion with both patient and at bedside on admission. Disposition-telemetry Maricel Scott DO [facility] hospitalist Resuscitation Status VTE Prophylaxis Will order VTE Prophylaxis: Yes
[2017-11-06] MEDS: SODIUM CHLORIDE 0.9% 1000ML 1,000 ML IV SCH (23:30)
[2017-11-06 23:38] VITALS: BP 115/68; PULSE 71; TEMP 37; O2SAT 99
[2017-11-07] VITALS (7 sets, daily range): BP systolic 95–113; BP diastolic 62–74; PULSE 66–83; TEMP 36.7–37.7; O2SAT 95–99
[2017-11-07 00:58] LABS: CALCIUM 7.2 mg/dl (8.5-10.1); CREATININE 0.72 mg/dl (0.60-1.20); POTASSIUM 3.8 mmol/L (3.5-5.1)
[2017-11-07 00:59] LABS: PTT PATIENT 38.1 SECONDS (21.0-31.0)
[2017-11-07] MEDS ORDERED: CALCIUM GLUCONATE 10% 2,000 MG in SODIUM CHLORIDE 0.9% 50ML 50 ML IV STA (01:28)
[2017-11-07 04:33] LABS: OSMOLALITY,URINE 448 mOms/kg (500-800)
[2017-11-07 04:36] LABS: SODIUM RANDOM URINE 18 mEq/L
[2017-11-07 05:01] LABS: CALCIUM 7.8 mg/dl (8.5-10.1); CREATININE 0.63 mg/dl (0.60-1.20); POTASSIUM 3.6 mmol/L (3.5-5.1)
[2017-11-07 05:07] LABS: BASO % 0.7 %; BASO ABS # 0.01 K/uL (0-0.2); EOS % 1.4 %; EOS ABS # 0.02 K/uL (0-0.5); HEMATOCRIT 25.1 % (37-47); LYMPH % 44.4 %; LYMPH ABS # 0.64 K/uL (1.2-3.4); MEAN CELL VOLUME 95.4 fL (80-100); MEAN CORPUSCULAR HEMOGLOBIN 34.2 pg (25-34); MEAN CORPUSCULAR HGB CONC 35.9 g/dl (32-36); MEAN PLATELET VOLUME 9.7 fL (7.4-10.4); MONO % 18.1 %; MONO ABS # 0.26 K/uL (0.11-0.59); NEUT % 35.4 %; NEUT ABS # 0.51 K/uL (1.4-6.5); PLATELET COUNT 309 K/uL (130-400); RED CELL DISTRIBUTION WIDTH CV 17.1 % (11.5-14.5); RED CELL DISTRIBUTION WIDTH SD 59.8 fL (36.4-46.3); WHITE BLOOD COUNT 1.44 K/uL (4.8-10.8)
[2017-11-07] MEDS: LEVOTHYROXINE 25 MCG TAB PO SCH (06:29)
[2017-11-07] MEDS: ENOXAPARIN 40 MG/0.4 ML SYR SC SCH (08:47)
[2017-11-07] MEDS: CALCIUM 600MG + VIT D 400 IU TAB PO SCH (08:48)
[2017-11-07 09:23] LABS: CALCIUM 7.5 mg/dl (8.5-10.1); CREATININE 0.64 mg/dl (0.60-1.20); POTASSIUM 3.1 mmol/L (3.5-5.1)
--- NOTE | 2017-11-07 10:15 | NEPHROLOGY CONSULTATION ---
DATE OF CONSULTATION: 11/07/2017 ATTENDING OF RECORD: Dr. Price. REASON FOR CONSULTATION: Hyponatremia. HISTORY OF PRESENT ILLNESS: This is a 57-year-old female with stage IV breast cancer with brain mets who had hospitalization in the past for hyponatremia followed by my partner, Dr. Scarlett Bhardwaj. The patient when she went home, was on a fluid restriction of 40-60 ounces a day; however, her appetite had been poor and she has been more tired and not eating or drinking as well. She feels she has lost about 4 pounds. The patient came in with a sodium level of 120. Urine osmolality of 448. Urine random sodium of 18. The patient was started on normal saline at a low rate. Her sodium level has improved up to 123. The patient has not used salt tablets in the past. Normally just being treated with fluid restrictions. PAST MEDICAL AND SURGICAL HISTORY: Stage IV breast cancer with mets to the brain and bone, hypothyroidism, hyponatremia, episodes of hypotension especially in the morning. Mastectomy. FAMILY HISTORY: Significant for hypertension. SOCIAL HISTORY: No smoking. Social alcohol, no drugs. and lives at home. CURRENT MEDICATIONS: Caltrate 1 tab daily, Lovenox 40 mg subQ daily, Synthroid 25 mcg daily, normal saline at 80 an hour. REVIEW OF SYSTEMS: No chest pain, no shortness of breath, no nausea or vomiting, no diarrhea or constipation. Positive episodes of lightheadedness, especially in the morning. Positive weight loss of 4 pounds. Positive anorexia. No rash or itching. All other review of systems otherwise negative. PHYSICAL EXAMINATION: VITAL SIGNS: Temperature 37, pulse 78, respiratory rate is 20, blood pressure 98/66, satting 95% on room air. GENERAL: Awake, alert, oriented x3. EYES: No scleral icterus. ENT: Moist mucous membranes. NECK: Supple. PULMONARY: Clear to auscultation. CARDIAC: Regular rate and rhythm. ABDOMEN: Bowel sounds positive, soft, nontender. EXTREMITIES: No clubbing, cyanosis or edema. NEUROLOGICAL: Nonfocal. DERMATOLOGIC: No rash or ulcers noted. LABORATORY DATA: Sodium is 123, potassium 3.6, chloride is 95, bicarbonate is 21, BUN 7, creatinine 0.63, glucose 71, calcium 7.8. White count is 1.44, H and H 9 and 25, platelet count is 309. Urine osmolality of 448. Urine sodium of 18. INR of 1. ASSESSMENT AND PLAN: Hyponatremia: Difficult to county court judge volume status of this patient. To me, the patient appears euvolemic, although did present with a 4-pound weight loss with poor appetite over the last several days. During previous admissions, sodium levels did improve with normal saline; I feel we should continue the normal saline. Sodium level has improved from 120 to 123. Would continue to follow the sodium levels periodically. Looking for a judicious correction over the next 24-48 hours, may benefit from low dose salt tablets with continued fluid restriction as an outpatient. We will see if sodium levels correct into the 130s with the IV fluids or if they will marginally correct up to 126, 127 range. The patient may have have an underlying SIADH as well as an element of volume depletion; for now, correcting the volume depletion component while monitoring for signs of SIADH. I appreciate consultation. BRENDAN
[2017-11-07] MEDS ORDERED: POTASSIUM CHLORIDE 10 MEQ TABCR PO STA (11:19)
[2017-11-07] MEDS: SODIUM CHLORIDE 0.9% 1000ML 1,000 ML IV SCH (11:53)
[2017-11-07 13:10] LABS: CALCIUM 7.5 mg/dl (8.5-10.1); CREATININE 0.72 mg/dl (0.60-1.20); POTASSIUM 3.3 mmol/L (3.5-5.1)
[2017-11-07] MEDS ORDERED: POTASSIUM CHLORIDE 20 MEQ TABCR PO ONE (16:00)
[2017-11-07] MEDS ORDERED: NURSING VERBAL MED ORDER ONE (16:00)
--- NOTE | 2017-11-07 19:04 | Progress Note ---
Internal Med Progress Note Date of Service: Nov 07, 2017. Provider Documentation: SUBJECTIVE: Denies of any discomfort, no fever or chills, no headache shortness of breath Complaint of nausea vomiting or diarrhea OBJECTIVE: Vital Signs-as noted below Exam: General-no sign of distress Eyes-sclera nonicteric pupils equal reactive to light ENT-moist oral mucosa Neck-no thyromegaly, no JVD Lungs-clear to auscultate no wheeze or rales Heart-regular S1-S2 Abdomen-soft nontender bowel sounds active Extremities-no lower extremity edema edema, port on right upper chest wall, evidence of erythema swelling or tenderness Neuro-alert awake oriented 3 no focal neurological deficit Lab data as noted below. ASSESSMENT & PLAN: 57-year-old female with stage IV breast cancer with known brain metastases and bone metastases presents with hyponatremia. HYPONATREMIA- Possible underlying SIADH Breast malignancy with brain metastases Also polydipsia could be contributing Normal neurological symptoms Patient started with normal saline, sodium level gradually improved to 126 Ordered for fluid restriction 2 L per day Neurology consulted appreciate input HYPOKALEMIA Potassium replaced Follow PRP PANCYTOPENIA- Secondary to chemotherapy NEUTROPENIA- Due to to chemotherapy. no symptom of infection neutropenic precautions and trend CBC with differential daily. chemotherapy will be kept on hold BREAST CANCER-STAGE IV WITH BONE AND BRAIN METASTASES. No acute changes at this time. . HYPOTHYROIDISM- . TSH is normal. Continue 25 mcg Synthroid daily per outpatient regimen. DVT prophylaxis- Moderate to high risk due to metastatic malignancy Subcu Lovenox CODE STATUS: Full code DISPOSITION Expected to be discharged home when medically stable PT OT evaluation prior to discharge Social service consulted for discharge planning Vital Signs: Date Time Temp Pulse Resp B/P (MAP) Pulse Ox O2 Delivery O2 Flow Rate FiO2 11/07/17 19:55 37.7 83 18 113/74 (87) 99 Nasal Cannula 11/07/17 15:57 37.2 66 19 98 11/07/17 12:00 Room Air 11/07/17 11:44 37.2 66 19 112/68 (83) 98 Room Air 11/07/17 08:30 Room Air 11/07/17 08:08 36.9 73 17 98/62 (74) 97 Room Air 11/07/17 04:00 Room Air 11/07/17 03:40 37.0 78 20 98/66 (77) 95 Room Air 11/07/17 00:00 Room Air 11/06/17 23:38 37.0 71 17 115/68 (84) 99 Room Air 11/06/17 22:33 37.0 80 20 113/78 94 Room Air 11/06/17 22:19 74 18 99/70 98 11/06/17 20:45 71 18 110/64 100 Room Air Lab Results: Results Past 24 Hours Test 11/06/17 20:35 11/07/17 00:22 11/07/17 04:00 11/07/17 04:29 Range/Units White Blood Count 1.43 1.44 4.8-10.8 K/uL Red Blood Count 2.75 2.63 4.2-5.4 M/uL Hemoglobin 9.6 9.0 12.0-16.0 g/dL Hematocrit 26.3 25.1 37-47 % Mean Corpuscular Volume 95.6 95.4 80-100 fL Mean Corpuscular Hemoglobin 34.9 34.2 25-34 pg Mean Corpuscular Hemoglobin Concent 36.5 35.9 32-36 g/dl Platelet Count 316 309 130-400 K/uL Mean Platelet Volume 9.7 9.7 7.4-10.4 fL Neutrophils (%) (Auto) 40.5 35.4 % Lymphocytes (%) (Auto) 37.8 44.4 % Monocytes (%) (Auto) 17.5 18.1 % Eosinophils (%) (Auto) 2.1 1.4 % Basophils (%) (Auto) 1.4 0.7 % Neutrophils # (Auto) 0.58 0.51 1.4-6.5 K/uL Lymphocytes # (Auto) 0.54 0.64 1.2-3.4 K/uL Monocytes # (Auto) 0.25 0.26 0.11-0.59 K/uL Eosinophils # (Auto) 0.03 0.02 0-0.5 K/uL Basophils # (Auto) 0.02 0.01 0-0.2 K/uL RDW Standard Deviation 60.9 59.8 36.4-46.3 fL RDW Coefficient of Variation 17.3 17.1 11.5-14.5 % Immature Granulocyte % (Auto) 0.7 0.0 % Immature Granulocyte # (Auto) 0.01 0.00 0.00-0.02 K/uL Red Blood Cell Morphology Unremarkable Sodium Level 120 122 123 136-145 mmol/L Potassium Level 3.9 3.8 3.6 3.5-5.1 mmol/L Chloride Level 91 93 95 98-107 mmol/L Carbon Dioxide Level 21 21 21 21-32 mmol/L Anion Gap 8.0 8.0 7.0 3-11 mmol/L Blood Urea Nitrogen 8 8 7 7-18 mg/dl Creatinine 0.80 0.72 0.63 0.60-1.20 mg/dl Est Creatinine Clear Calc Drug Dose 62.8 69.9 78.7 ml/min Estimated GFR () 93.5 106.2 113.8 Estimated GFR (Non- 80.7 91.7 98.2 BUN/Creatinine Ratio 10.5 11.5 10.5 10-20 Random Glucose 78 76 71 70-99 mg/dl Osmolality 244 280-300 mOsm/kg Calcium Level 7.4 7.2 7.8 8.5-10.1 mg/dl Magnesium Level 2.1 1.8-2.4 mg/dl Total Bilirubin 0.7 0.2-1 mg/dl Aspartate Amino Transf (AST/SGOT) 29 15-37 U/L Alanine Aminotransferase (ALT/SGPT) 17 12-78 U/L Alkaline Phosphatase 56 45-117 U/L Total Protein 6.4 6.4-8.2 gm/dl Albumin 2.9 3.4-5.0 gm/dl Globulin 3.5 2.5-4.0 gm/dl Albumin/Globulin Ratio 0.8 0.9-2 Thyroid Stimulating Hormone (TSH) 3.150 0.300-4.500 uIu/ml Free Thyroxine 0.81 0.80-1.60 ng/dl Prothrombin Time 10.9 9.0-12.0 SECONDS Prothromb Time International Ratio 1.0 0.9-1.1 Activated Partial Thromboplast Time 38.1 21.0-31.0 SECONDS Partial Thromboplastin Ratio 1.5 Urine Color YELLOW Urine Appearance CLEAR CLEAR Urine pH 5.0 4.5-7.5 Urine Specific [place] 1.017 1.000-1.030 Urine Protein NEG NEG Urine Glucose (UA) NEG NEG Urine Ketones 1+ NEG Urine Occult Blood NEG NEG Urine Nitrite NEG NEG Urine Bilirubin NEG NEG Urine Urobilinogen NEG NEG Urine Leukocyte Esterase NEG NEG Urine WBC (Auto) 1-5 0-5 /hpf Urine RBC (Auto) 0-4 0-4 /hpf Urine Hyaline Casts (Auto) 0 0-5 /lpf Urine Epithelial Cells (Auto) 10-20 0-5 /lpf Urine Bacteria (Auto) NEG NEG Urine Osmolality 448 500-800 mOms/kg Urine Random Sodium 18 mEq/L Large Platelets 1+ Test 11/07/17 08:33 11/07/17 12:21 Range/Units Sodium Level 126 125 136-145 mmol/L Potassium Level 3.1 3.3 3.5-5.1 mmol/L Chloride Level 97 96 98-107 mmol/L Carbon Dioxide Level 20 24 21-32 mmol/L Anion Gap 9.0 6.0 3-11 mmol/L Blood Urea Nitrogen 6 7 7-18 mg/dl Creatinine 0.64 0.72 0.60-1.20 mg/dl Est Creatinine Clear Calc Drug Dose 77.5 68.9 ml/min Estimated GFR () 113.2 106.2 Estimated GFR (Non- 97.7 91.7 BUN/Creatinine Ratio 9.0 9.3 10-20 Random Glucose 94 86 70-99 mg/dl Calcium Level 7.5 7.5 8.5-10.1 mg/dl
[2017-11-07] MEDS: ACETAMINOPHEN 325 MG TAB PO PRN (20:40)
[2017-11-08] VITALS (10 sets, daily range): BP systolic 90–131; BP diastolic 58–77; PULSE 70–80; TEMP 36.8–37.9; O2SAT 97–99
[2017-11-08 06:27] LABS: CALCIUM 7.9 mg/dl (8.5-10.1); CREATININE 0.76 mg/dl (0.60-1.20); POTASSIUM 4.2 mmol/L (3.5-5.1)
[2017-11-08 06:31] LABS: HEMATOCRIT 27.8 % (37-47); HEMOGLOBIN 9.9 g/dL (12.0-16.0); MEAN CELL VOLUME 97.2 fL (80-100); MEAN CORPUSCULAR HEMOGLOBIN 34.6 pg (25-34); MEAN CORPUSCULAR HGB CONC 35.6 g/dl (32-36); MEAN PLATELET VOLUME 9.6 fL (7.4-10.4); PLATELET COUNT 383 K/uL (130-400); RED CELL DISTRIBUTION WIDTH CV 17.5 % (11.5-14.5); WHITE BLOOD COUNT 1.91 K/uL (4.8-10.8)
[2017-11-08] MEDS: LEVOTHYROXINE 25 MCG TAB PO SCH (06:34)
[2017-11-08] MEDS: CALCIUM 600MG + VIT D 400 IU TAB PO SCH (07:35)
[2017-11-08] MEDS: ENOXAPARIN 40 MG/0.4 ML SYR SC SCH (07:36)
--- NOTE | 2017-11-08 09:40 | Nephrology Progress Note ---
Nephrology Progress Note Date of Service: Nov 08, 2017. Subjective 57 yo female with metastatic breast cancer with neutropenia and presented with hyponatremia. improved with iv fluids. off iv fluids currently and wants to go home. did have a fever last night as well. Objective Date Time Temp Pulse Resp B/P (MAP) Pulse Ox O2 Delivery O2 Flow Rate FiO2 11/08/17 08:00 Room Air 11/08/17 07:39 37.2 11/08/17 07:33 37.6 72 16 105/68 (80) 97 Room Air 11/08/17 05:10 36.8 74 17 90/58 (69) 97 Room Air 101/69 (80) 131/68 (89) 11/08/17 00:00 99 Nasal Cannula 11/07/17 23:34 36.7 68 20 95/62 (73) 96 Room Air 11/07/17 20:00 99 Nasal Cannula 11/07/17 19:55 37.7 83 18 113/74 (87) 99 Nasal Cannula 11/07/17 15:57 37.2 66 19 98 11/07/17 12:00 Room Air 11/07/17 11:44 37.2 66 19 112/68 (83) 98 Room Air Physical Exam: General-aaox3 Eyes-no scleral icterus ENT-mmm Neck-supple Lungs-cta Heart-rrr Abdomen-bs+ s/nt/nd Extremities-no c/c/e Neuro-nonfocal Current Inpatient Medications Medications (Trade) Dose Ordered Sig/Yenni Route Start Time Stop Time Status Last Admin Dose Admin Enoxaparin Sodium (Lovenox Inj) 40 mg Q24H SC 11/07/17 08:00 12/07/17 07:59 Acetaminophen (Tylenol Tab) 650 mg Q4H PRN PO 11/06/17 22:00 12/06/17 21:59 11/07/17 20:40 650 MG Ondansetron HCl (Zofran Inj) 4 mg Q6H PRN IV 11/06/17 22:00 12/06/17 21:59 Levothyroxine Sodium (Synthroid Tab) 25 mcg DAILYBB PO 11/07/17 06:00 12/07/17 06:59 11/08/17 06:34 25 MCG Promethazine HCl (Phenergan Tab) 25 mg Q6H PRN PO 11/06/17 22:45 12/06/17 22:44 Calcium/Vitamin D (Caltrate Plus Tab) 1 tab DAILY PO 11/07/17 09:00 12/07/17 08:59 11/08/17 07:35 1 TAB Last 24 Hours Test 11/07/17 12:21 11/08/17 05:33 Sodium Level 125 mmol/L 134 mmol/L Potassium Level 3.3 mmol/L 4.2 mmol/L Chloride Level 96 mmol/L 101 mmol/L Carbon Dioxide Level 24 mmol/L 22 mmol/L Anion Gap 6.0 mmol/L 12.0 mmol/L Blood Urea Nitrogen 7 mg/dl 5 mg/dl Creatinine 0.72 mg/dl 0.76 mg/dl Est Creatinine Clear Calc Drug Dose 68.9 ml/min 65.3 ml/min Estimated GFR () 106.2 99.5 Estimated GFR (Non- 91.7 85.9 BUN/Creatinine Ratio 9.3 6.2 Random Glucose 86 mg/dl 72 mg/dl Calcium Level 7.5 mg/dl 7.9 mg/dl White Blood Count 1.91 K/uL Red Blood Count 2.86 M/uL Hemoglobin 9.9 g/dL Hematocrit 27.8 % Mean Corpuscular Volume 97.2 fL Mean Corpuscular Hemoglobin 34.6 pg Mean Corpuscular Hemoglobin Concent 35.6 g/dl Platelet Count 383 K/uL Mean Platelet Volume 9.6 fL RDW Standard Deviation 62.0 fL RDW Coefficient of Variation 17.5 % Neutrophils % (Manual) 46.8 % Lymphocytes % (Manual) 36.3 % Monocytes % (Manual) 13.3 % Eosinophils % (Manual) 0.9 % Basophils % (Manual) 1.8 % Myelocytes % 0.9 % Neutrophils # (Manual) 0.89 K/uL Total Absolute Neutrophils 0.89 K/uL Lymphocytes # (Manual) 0.69 K/uL Total Absolute Lymphocytes 0.69 K/uL Monocytes # (Manual) 0.25 K/uL Eosinophils # (Manual) 0.02 K/uL Basophils # (Manual) 0.03 K/uL Myelocytes # 0.02 K/uL Giant Platelets 1+ Red Blood Cell Morphology Unremarkable Assessment & Plan hyponatremia-improved with normal saline alone indicating volume depletion as a component of her hyponatremia. would continue the fluid restriction and repeat bmp this week. if sodium levels start to trend down again, could consider adding salt tablets. ID: pt did have neutropenic fevers last night, defer to primary hospitalist.
--- NOTE | 2017-11-08 12:44 | Discharge Instructions ---
Discharge Instructions Date of Service Nov 08, 2017. Admission Reason for Admission: Hyponatremia Discharge Discharge Diagnosis / Problem: HYPONATREMIA /METASTATIC BREAST CA /NEUTROPENIC FEVER Discharge Goals Goal(s): Decrease discomfort, Improve disease control, Diagnostic testing, Therapeutic intervention Activity Recommendations Activity Limitations: resume your previous activity . Instructions / Follow-Up Instructions / Follow-Up HOSPITAL FOLLOW UP : 11/12/2017 @ 11:[address] Zeb Madrigal MD General Internal Medicine [facility] LAB : BASIC METABOLIC PANEL IN 1 WEEK Current Hospital Diet Patient's current hospital diet: Regular Diet Discharge Diet Recommended Diet: Regular Diet Fluid Restriction: 1500 ml (6 cups) Pending Studies Studies pending at discharge: no Medical Emergencies . Who to Call and When: Medical Emergencies: If at any time you feel your situation is an emergency, please call 911 immediately. . Non-Emergent Contact Non-Emergency issues call your: Primary Care Provider . . "Provider Documentation" section prepared by Ashley Price. .
[2017-11-08] MEDS ORDERED: CEFEPIME IV 2,000 MG in DEXTROSE 5% 100ML 100 ML IV ONE (13:53)
[2017-11-08] MEDS ORDERED: VANCOMYCIN CONSULT ACTIVE PRN ×2 (14:00)
[2017-11-08] MEDS ORDERED: CEFEPIME IV 2,000 MG in SYRINGE 7.5 ML IV ONE (14:15)
[2017-11-08] MEDS ORDERED: VANCOMYCIN IV 1,500 MG in SODIUM CHLORIDE 0.9% 500ML 500 ML IV ONE (14:45)
--- NOTE | 2017-11-08 15:23 | DIAGNOSTIC IMAGING REPORT ---
CHEST ONE VIEW PORTABLE CLINICAL HISTORY: FEVER /NEUTROPENA/METASTATIC CA/r/O PULM INFECTION/EFFUSION cough COMPARISON STUDY: 08/07/2017 FINDINGS: Poorly defined diffuse parenchymal infiltrate left mid and lower lung. The right lung is clear. There is a central catheter ends. Cava. IMPRESSION: Diffuse parenchymal infiltrate left mid to lower lung region. The above report was generated using voice recognition software. It may contain grammatical, syntax or spelling errors. Electronically signed by: Tai Mcclendon M.D. 11/08/2017 3:22 PM Dictated Date/Time: 11/08/2017 3:21 PM
--- NOTE | 2017-11-08 15:59 | Pharmacy Progress Note ---
Pharmacy Abx Initial Consult Date of Service Nov 08, 2017. Pharmacy Dosing Scope Date of Consult: 11/08/17 Consultation requested by: Dr. Price Pharmacy is consulted to initiate Vancomycin IV dosing therapy, order appropriate labs and adjust drug dose/frequency. Subjective The patient is a 57 year old female admitted on Nov 06, 2017 at 21:58. Objective Height (Feet): 5 Height (Inches): 0.00 Weight (Kilograms): 60.900 Vital Signs (Past 12Hrs) Vital Signs Past 12 Hours Date Time Temp Pulse Resp B/P (MAP) Pulse Ox O2 Delivery O2 Flow Rate FiO2 11/08/17 12:16 37.5 11/08/17 11:22 37.9 76 16 108/68 (81) 98 11/08/17 10:44 37.4 11/08/17 08:00 Room Air 11/08/17 07:39 37.2 11/08/17 07:33 37.6 72 16 105/68 (80) 97 Room Air 11/08/17 05:10 36.8 74 17 90/58 (69) 97 Room Air 101/69 (80) 131/68 (89) Lab Results (24Hrs) Laboratory Tests (24 Hours) Test 11/08/17 05:33 White Blood Count 1.91 K/uL (4.8-10.8) L Red Blood Count 2.86 M/uL (4.2-5.4) L Hemoglobin 9.9 g/dL (12.0-16.0) L Hematocrit 27.8 % (37-47) L Mean Corpuscular Volume 97.2 fL (80-100) Mean Corpuscular Hemoglobin 34.6 pg (25-34) H Mean Corpuscular Hemoglobin Concent 35.6 g/dl (32-36) Platelet Count 383 K/uL (130-400) Mean Platelet Volume 9.6 fL (7.4-10.4) Micro Results Date/Time Source Procedure Growth Status 11/08/17 13:16 Blood Blood Culture Pending Received 11/08/17 13:06 Blood Blood Culture Pending Received Risk Factors for Resistance * Immunocompromised (chemotherapy and radiation for metastatic breast cancer) Assessment & Plan Assessment 57 year old female with neutropenic fevers due to recent chemo and radiation therapy. Plan Vancomycin for treatment of neutropenia/ possible infection. Vancomycin IV * Loading dose: 1500 mg IV (25 mg/kg) x 1 dose for 1500 today. * Estimated PK parameters: Ke = 0.056/hr, t1/2 = 12.4 hrs, Vd = 0.7 L/kg * Maintenance dose: Vancomycin 1000 mg IV (16 mg/kg) every 16 hours started for 11/09 at 0400. * Goal trough level for Neutropenic fever: 15 to 20 mcg/mL * Trough Vanco level not ordered since antibiotics are currently ordered for Empiric therapy with a 48 hr stop date and time. * Will order a trough Vanco level before the 4th maintenance dose if Vanco is continued beyond 48hrs. Pharmacy will continue to follow and will adjust dose/frequency as necessary. Thank you.
[2017-11-08] MEDS: ACETAMINOPHEN 325 MG TAB PO PRN (20:02)
[2017-11-08] MEDS ORDERED: CEFEPIME IV 2,000 MG in DEXTROSE 5% 100ML 100 ML IV SCH (21:00)
--- NOTE | 2017-11-08 21:13 | Progress Note ---
Internal Med Progress Note Date of Service: Nov 08, 2017. Provider Documentation: SUBJECTIVE: eager to be discharged home Na appropriately improved to 134 with fluid restriction only noted to spike temp last night and this morning pt mentions of feeling chills , no rigor no cough or urinary symptoms explained to pt and given her severe immunocompromised status fever can mean underlying infection -which if not treated early , can lead to life threatening sepsis blood culture /urine culture /Chest Xray ordered pt is agreeable to stay for treatment for possible infection OBJECTIVE: Vital Signs-as noted below Exam: General-no sign of distress Eyes-sclera nonicteric pupils equal reactive to light ENT-moist oral mucosa Neck-no thyromegaly, no JVD Lungs-clear to auscultate no wheeze or rales Heart-regular S1-S2 Abdomen-soft nontender bowel sounds active Extremities-no lower extremity edema edema, port on right upper chest wall, evidence of erythema swelling or tenderness Neuro-alert awake oriented 3 no focal neurological deficit Lab data as noted below. ASSESSMENT & PLAN: 57-year-old female with stage IV breast cancer with known brain metastases and bone metastases presents with hyponatremia. NEUTROPENIC FEVER : ordered for Echols culture ( blood /urine ) Chest Xray -pt reports of non productive cough for few days empiric Abx with Cefepime ( allergic to PCN ( /Vanco ( neutropenic fever ) ID consulted HYPONATREMIA- Possible underlying SIADH Breast malignancy with brain metastases Also polydipsia could be contributing Normal neurological symptoms Neurology consulted appreciate input Na improved to 134 with fluid restriction out pt follow up with basic metabolic panel in a 1 week may need to add Salt tab in future if Na level continues to Fluctuate HYPOKALEMIA Potassium replaced Follow PRP PANCYTOPENIA- Secondary to chemotherapy NEUTROPENIA- Due to to chemotherapy. no symptom of infection neutropenic precautions and trend CBC with differential daily. chemotherapy will be kept on hold BREAST CANCER-STAGE IV WITH BONE AND BRAIN METASTASES. No acute changes at this time. . HYPOTHYROIDISM- . TSH is normal. Continue 25 mcg Synthroid daily per outpatient regimen. DVT prophylaxis- Moderate to high risk due to metastatic malignancy Subcu Lovenox CODE STATUS: Full code DISPOSITION hold Dc home today for fever Expected to be discharged home when medically stable updated at bedside Social service consulted for discharge planning Vital Signs: Date Time Temp Pulse Resp B/P (MAP) Pulse Ox O2 Delivery O2 Flow Rate FiO2 11/09/17 15:50 73 122/87 (99) 11/09/17 15:50 70 123/83 (96) 11/09/17 15:49 36.6 68 18 124/82 (96) 99 11/09/17 11:18 36.5 65 18 123/79 (94) 100 11/09/17 10:38 Room Air 11/09/17 07:24 36.3 68 16 95/65 (75) 100 Room Air 11/09/17 04:29 36.7 55 20 93/57 (69) 99 Room Air 11/09/17 00:00 97 Room Air 11/08/17 21:36 37.1 70 20 94/61 (72) 97 Room Air 11/08/17 20:00 97 Room Air 11/08/17 19:16 37.1 80 19 115/77 (90) 99 Room Air Lab Results: Results Past 24 Hours Test 11/09/17 05:22 Range/Units White Blood Count 2.48 4.8-10.8 K/uL Red Blood Count 2.52 4.2-5.4 M/uL Hemoglobin 8.9 12.0-16.0 g/dL Hematocrit 24.6 37-47 % Mean Corpuscular Volume 97.6 80-100 fL Mean Corpuscular Hemoglobin 35.3 25-34 pg Mean Corpuscular Hemoglobin Concent 36.2 32-36 g/dl Platelet Count 389 130-400 K/uL Mean Platelet Volume 9.4 7.4-10.4 fL Neutrophils (%) (Auto) 37.1 % Lymphocytes (%) (Auto) 32.3 % Monocytes (%) (Auto) 22.2 % Eosinophils (%) (Auto) 5.6 % Basophils (%) (Auto) 1.2 % Neutrophils # (Auto) 0.92 1.4-6.5 K/uL Lymphocytes # (Auto) 0.80 1.2-3.4 K/uL Monocytes # (Auto) 0.55 0.11-0.59 K/uL Eosinophils # (Auto) 0.14 0-0.5 K/uL Basophils # (Auto) 0.03 0-0.2 K/uL RDW Standard Deviation 62.2 36.4-46.3 fL RDW Coefficient of Variation 17.3 11.5-14.5 % Immature Granulocyte % (Auto) 1.6 % Immature Granulocyte # (Auto) 0.04 0.00-0.02 K/uL Toxic Granulation OCCASIONAL Large Platelets 1+ Sodium Level 130 136-145 mmol/L Potassium Level 3.9 3.5-5.1 mmol/L Chloride Level 100 98-107 mmol/L Carbon Dioxide Level 22 21-32 mmol/L Anion Gap 8.0 3-11 mmol/L Blood Urea Nitrogen 5 7-18 mg/dl Creatinine 0.68 0.60-1.20 mg/dl Est Creatinine Clear Calc Drug Dose 72.6 ml/min Estimated GFR () 111.0 Estimated GFR (Non- 95.7 BUN/Creatinine Ratio 7.2 10-20 Random Glucose 75 70-99 mg/dl Calcium Level 7.3 8.5-10.1 mg/dl
[2017-11-09] VITALS (7 sets, daily range): BP systolic 93–124; BP diastolic 57–87; PULSE 55–73; TEMP 36.3–36.7; O2SAT 97–100
[2017-11-09] MEDS: CEFEPIME IV 2,000 MG in SYRINGE 7.5 ML IV SCH ×2 (02:18→13:44)
[2017-11-09] MEDS ORDERED: VANCOMYCIN IV 1,000 MG in SODIUM CHLORIDE 0.9% 250ML 250 ML IV SCH (04:00)
[2017-11-09] MEDS: LEVOTHYROXINE 25 MCG TAB PO SCH (06:37)
[2017-11-09 06:43] LABS: HEMATOCRIT 24.6 % (37-47); HEMOGLOBIN 8.9 g/dL (12.0-16.0); MEAN CELL VOLUME 97.6 fL (80-100); MEAN CORPUSCULAR HEMOGLOBIN 35.3 pg (25-34); MEAN CORPUSCULAR HGB CONC 36.2 g/dl (32-36); MEAN PLATELET VOLUME 9.4 fL (7.4-10.4); PLATELET COUNT 389 K/uL (130-400); RED CELL DISTRIBUTION WIDTH CV 17.3 % (11.5-14.5); RED CELL DISTRIBUTION WIDTH SD 62.2 fL (36.4-46.3); WHITE BLOOD COUNT 2.48 K/uL (4.8-10.8)
[2017-11-09 06:45] LABS: CALCIUM 7.3 mg/dl (8.5-10.1); CREATININE 0.68 mg/dl (0.60-1.20); POTASSIUM 3.9 mmol/L (3.5-5.1)
[2017-11-09 06:53] LABS: BASO % 1.2 %; BASO ABS # 0.03 K/uL (0-0.2); EOS % 5.6 %; EOS ABS # 0.14 K/uL (0-0.5); IG# 0.04 K/uL (0.00-0.02); LYMPH % 32.3 %; MONO % 22.2 %; MONO ABS # 0.55 K/uL (0.11-0.59); NEUT % 37.1 %; NEUT ABS # 0.92 K/uL (1.4-6.5)
[2017-11-09] MEDS: ENOXAPARIN 40 MG/0.4 ML SYR SC SCH (08:00)
[2017-11-09] MEDS: CALCIUM 600MG + VIT D 400 IU TAB PO SCH (08:06)
--- NOTE | 2017-11-09 09:33 | Nephrology Progress Note ---
Nephrology Progress Note Date of Service: Nov 09, 2017. Subjective 57 yo female with metastatic breast cancer with neutropenia and presented with hyponatremia. improved with iv fluids. off iv fluids. did have neutropenic fevers and primary hospitalist doing appropriate workup. pt comfortable. no complaints. has a mild cough which is better compared to previous cough she had. Objective Date Time Temp Pulse Resp B/P (MAP) Pulse Ox O2 Delivery O2 Flow Rate FiO2 11/09/17 07:24 36.3 68 16 95/65 (75) 100 Room Air 11/09/17 04:29 36.7 55 20 93/57 (69) 99 Room Air 11/09/17 00:00 97 Room Air 11/08/17 21:36 37.1 70 20 94/61 (72) 97 Room Air 11/08/17 20:00 97 Room Air 11/08/17 19:16 37.1 80 19 115/77 (90) 99 Room Air 11/08/17 16:00 Room Air 11/08/17 12:16 37.5 11/08/17 11:22 37.9 76 16 108/68 (81) 98 11/08/17 10:44 37.4 Physical Exam: General-aaox3 Eyes-no scleral icterus ENT-mmm Neck-supple Lungs-clear Heart-elizabeth Abdomen-bs+ s/nt/nd Extremities-no c/c/e Neuro-nonfocal Current Inpatient Medications Medications (Trade) Dose Ordered Sig/Yenni Route Start Time Stop Time Status Last Admin Dose Admin Enoxaparin Sodium (Lovenox Inj) 40 mg Q24H SC 11/07/17 08:00 12/07/17 07:59 Acetaminophen (Tylenol Tab) 650 mg Q4H PRN PO 11/06/17 22:00 12/06/17 21:59 11/08/17 20:02 650 MG Ondansetron HCl (Zofran Inj) 4 mg Q6H PRN IV 11/06/17 22:00 12/06/17 21:59 Levothyroxine Sodium (Synthroid Tab) 25 mcg DAILYBB PO 11/07/17 06:00 12/07/17 06:59 11/09/17 06:37 25 MCG Promethazine HCl (Phenergan Tab) 25 mg Q6H PRN PO 11/06/17 22:45 12/06/17 22:44 Calcium/Vitamin D (Caltrate Plus Tab) 1 tab DAILY PO 11/07/17 09:00 12/07/17 08:59 11/09/17 08:06 1 TAB Vancomycin HCl 1000 mg/Sodium Chloride 270 ml @ 125 mls/hr Q16H IV 11/09/17 04:00 11/10/17 23:59 11/09/17 04:30 125 MLS/HR Miscellaneous Information (Consult) 1 ea UD PRN N/A 11/08/17 14:00 12/08/17 13:59 Cefepime HCl 2000 mg/Syringe 20 ml @ 5 mls/min Q12H IV 11/09/17 02:00 11/10/17 13:59 11/09/17 02:18 5 MLS/MIN Last 24 Hours Test 11/08/17 15:46 11/09/17 05:22 Urine Color YELLOW Urine Appearance CLEAR Urine pH 6.5 Urine Specific [place] 1.015 Urine Protein NEG Urine Glucose (UA) NEG Urine Ketones NEG Urine Occult Blood NEG Urine Nitrite NEG Urine Bilirubin NEG Urine Urobilinogen NEG Urine Leukocyte Esterase NEG White Blood Count 2.48 K/uL Red Blood Count 2.52 M/uL Hemoglobin 8.9 g/dL Hematocrit 24.6 % Mean Corpuscular Volume 97.6 fL Mean Corpuscular Hemoglobin 35.3 pg Mean Corpuscular Hemoglobin Concent 36.2 g/dl Platelet Count 389 K/uL Mean Platelet Volume 9.4 fL Neutrophils (%) (Auto) 37.1 % Lymphocytes (%) (Auto) 32.3 % Monocytes (%) (Auto) 22.2 % Eosinophils (%) (Auto) 5.6 % Basophils (%) (Auto) 1.2 % Neutrophils # (Auto) 0.92 K/uL Lymphocytes # (Auto) 0.80 K/uL Monocytes # (Auto) 0.55 K/uL Eosinophils # (Auto) 0.14 K/uL Basophils # (Auto) 0.03 K/uL RDW Standard Deviation 62.2 fL RDW Coefficient of Variation 17.3 % Immature Granulocyte % (Auto) 1.6 % Immature Granulocyte # (Auto) 0.04 K/uL Toxic Granulation OCCASIONAL Large Platelets 1+ Sodium Level 130 mmol/L Potassium Level 3.9 mmol/L Chloride Level 100 mmol/L Carbon Dioxide Level 22 mmol/L Anion Gap 8.0 mmol/L Blood Urea Nitrogen 5 mg/dl Creatinine 0.68 mg/dl Est Creatinine Clear Calc Drug Dose 72.6 ml/min Estimated GFR () 111.0 Estimated GFR (Non- 95.7 BUN/Creatinine Ratio 7.2 Random Glucose 75 mg/dl Calcium Level 7.3 mg/dl Date/Time Source Procedure Growth Status 11/08/17 13:16 Blood Blood Culture Pending Received 11/08/17 13:06 Blood Blood Culture Pending Received Assessment & Plan hyponatremia-improved with normal saline alone indicating volume depletion as a component of her hyponatremia. sodium level did trend down from 134 to 130 through fluid restriction alone. continue current fluid restriction and recommend repeating bmp later this week as an outpt. if sodium levels trend down below 130, add sodium chloride tablets. for now, no changes.
--- NOTE | 2017-11-09 10:22 | Progress Note ---
Progress Note Date of Service Nov 09, 2017. Progress Note ID Consult Dictated #[id number] A/P: 1. Febrile Neutropenia 2. CAP -Continue abx, follow cultures, wbc improved today, afebrile x 23 hours -Anxious to be d/c home, would suggest transition to po doxy 100mg po bid x 7 days -thank you
--- NOTE | 2017-11-09 11:54 | INFECT. DISEASE CONSULTATION ---
DATE OF CONSULTATION: 11/09/2017 HISTORY OF PRESENT ILLNESS: This is a 57-year-old female who was admitted to the hospital after she was found to be hyponatremic on an outpatient basis. She does have a history of metastatic breast cancer for which she is undergoing chemotherapy. It was felt that her chemotherapy was the etiology for her hyponatremia. She is being managed by nephrology and states yesterday, she was told that her sodium was adequate for discharge and discharge was in place; however, the patient had low grade fever of 37.9 and had a low white blood cell count, so she was not discharged to home and infectious diseases was consulted for neutropenic fever. She was started yesterday vancomycin and cefepime. A chest x-ray done yesterday and did show a left lower lobe infiltration; however, the patient does not have any pulmonary symptoms. She denies any cough. She denies any shortness of breath. She denies any pleuritic chest pain. She states she is asymptomatic with her fever. Her white blood cell count was initially 1.4 and has improved to 2.4. A urinalysis was done yesterday and is pending. Blood cultures were also obtained yesterday and are pending. She is tolerating antibiotics well. She currently offers no complaints. She states she is anxious to be discharged to home later today. REVIEW OF SYSTEMS: Her remaining review of systems is unremarkable. PAST MEDICAL HISTORY: Significant for metastatic breast cancer with bony metastasis, hypothyroidism. PAST SURGICAL HISTORY: Significant for bilateral mastectomy. FAMILY HISTORY: Noncontributory. SOCIAL HISTORY: Negative for tobacco use. She drinks occasionally. She denies any drug use. She has no sick contacts. ALLERGIES: SHE IS ALLERGIC TO SULFA AND PENICILLIN. CURRENT MEDICATIONS: Include vancomycin, cefepime, calcium, Lovenox, Synthroid, Phenergan, Tylenol and Zofran. PHYSICAL EXAMINATION: VITAL SIGNS: She is currently afebrile. Her T-max was 37.9 at 11:30 yesterday morning, pulse is 68, respiratory rate 16, blood pressure 95/65, oxygen saturation is 100% on room air. GENERAL: She is awake, alert and oriented x3. She is in no acute distress. HEENT: Mucous membranes are moist. Extraocular muscles are intact. HEART: Regular. LUNGS: Clear. ABDOMEN: Soft and nondistended. EXTREMITIES: There is no lower extremity edema. SKIN: Without rash. LABORATORY STUDIES: CBC today, white blood cell count 2.4, hemoglobin 8.9, platelets 389. Chemistry panel: Sodium 130, potassium 3.9, chloride 100, bicarbonate 22, BUN 5, creatinine 0.6, glucose 75. Urinalysis on the is negative. Blood cultures are pending. Chest x-ray on the shows left mid to lower lung infiltrate. ASSESSMENT AND PLAN: Febrile neutropenia. This is resolving. She currently is on a broad-spectrum antibiotic. She is anxious to be discharged to home. I do not believe she would warrant treatment for her left lower lobe infiltrate, although she has minimal to no symptoms from a pulmonary standpoint with her SULFA AND PENICILLIN ALLERGIES, doxycycline 100 mg twice daily would be adequate treatment to cover for community acquired pathogens. Her blood cultures are pending. Thank you for this consultation.
[2017-11-09] MEDS ORDERED: DXY100 PO (17:12)
--- NOTE | 2017-11-09 17:26 | Discharge Summary ---
Discharge Summary Date of Service Nov 09, 2017. Discharge Summary Admission Date: Nov 06, 2017 at 21:58 Discharge Date: Nov 09, 2017 Discharge Disposition: Home Medication Reconciliation New Medications: Doxycycline Hyclate (Doxycycline Hyclate) 100 Mg Cap 1 TAB PO BID for 7 Days, #14 TABS Continued Medications: Calcium Citrate-Vitamin D (Calcium Citrate + D) 1 Tab Tab 1 TAB PO DAILY 250-200mg Fulvestrant (Faslodex) 250 Mg/5 Ml Inj 1 MONTHLY Fulvestrant (Faslodex) 250 Mg/5 Ml Inj 500 MG IM UD last given 11/04/17 Levothyroxine Sodium (Synthroid) 25 Mcg Tab 25 MCG PO DAILYBB for 30 Days, #30 TAB 1 Refill Loratadine & Pseudoephedrine (Claritin-D 24 Hour) 1 Tab Tab 1 TAB PO DAILY PRN for Nasal Congestion for 30 Days, #30 TAB 3 Refills Promethazine Hcl (Phenergan) 25 Mg Tab 25 MG PO Q6H PRN for Nausea, #20 TAB Ribociclib Succinate (Kisqali) 200 Mg Tab 400 MG PO DAILY takes 3 weeks on and 1 week off [exgeva] () 1 DOSE INJ q3mos. Admission Information HPI (per Admitting provider): 57-year-old female with stage IV breast cancer with known brain metastases presents to the emergency room with complaints of persistent hyponatremia. She was sent to the emergency room by her neck just after test results revealed a sodium that was falling. Her sodium was 124 last week and 121 today. In the ER she is 120. She reports some generalized weakness for the last 2-3 days but otherwise is asymptomatic. She reports drinking approximately 40-60 ounces of water daily and is on no specific fluid restriction at this time. Her appetite has been poor, she has had cold intolerance, she is fatigued to the point where she is not interested in food or eating. She reports losing a couple of pounds but no more than that. She has no acute visual changes, denies headache, denies nausea vomiting or diarrhea. She was recently admitted in September for the same issue and was seen by nephrology. She is also neutropenic and currently off her chemotherapy for at least the last week. She denies any urinary tract symptoms, coughing or other infectious symptoms at this time. Physical Exam (per Admitting): General Appearance: WD/WN, no apparent distress Head: normocephalic, atraumatic Eyes: normal inspection, PERRL, sclerae normal, + pertinent finding (Mucous membranes moist) ENT: normal ENT inspection, hearing grossly normal, pharynx normal Neck: supple, no adenopathy, trachea midline Respiratory/Chest: chest non-tender, lungs clear, normal breath sounds, no respiratory distress, no accessory muscle use, + pertinent finding (Port to right anterior chest wall) Cardiovascular: regular rate, rhythm, no edema, no gallop, no JVD, no murmur , normal peripheral pulses Abdomen/GI: normal bowel sounds, non tender, soft Extremities/Musculoskelatal: normal inspection, + pertinent finding (No swelling or edema) Neurologic/Psych: no motor/sensory deficits, alert, normal mood/affect, oriented x 3 Skin: normal color, warm/dry, no rash Hospital Course 57-year-old female with stage IV breast cancer with known brain metastases and bone metastases presents with hyponatremia. NEUTROPENIC FEVER : ordered for Echols culture ( blood /urine ) Chest Xray -pt reports of non productive cough for few days empiric Abx with Cefepime ( allergic to PCN ( /Vanco ( neutropenic fever ) ID consulted HYPONATREMIA- Possible underlying SIADH Breast malignancy with brain metastases Also polydipsia could be contributing Normal neurological symptoms Neurology consulted appreciate input Na improved to 134 with fluid restriction out pt follow up with basic metabolic panel in a 1 week may need to add Salt tab in future if Na level continues to Fluctuate HYPOKALEMIA Potassium replaced Follow PRP PANCYTOPENIA- Secondary to chemotherapy NEUTROPENIA- Due to to chemotherapy. no symptom of infection neutropenic precautions and trend CBC with differential daily. chemotherapy will be kept on hold BREAST CANCER-STAGE IV WITH BONE AND BRAIN METASTASES. No acute changes at this time. . HYPOTHYROIDISM- . TSH is normal. Continue 25 mcg Synthroid daily per outpatient regimen. DVT prophylaxis- Moderate to high risk due to metastatic malignancy Subcu Lovenox CODE STATUS: Full code DISPOSITION hold Dc home today for fever Expected to be discharged home when medically stable updated at bedside Social service consulted for discharge planning Total time spent on discharge = 35 min This includes examination of the patient, discharge planning, medication reconciliation, and communication with other providers. Discharge Instructions Discharge Instructions Date of Service Nov 08, 2017. Admission Reason for Admission: Hyponatremia Discharge Discharge Diagnosis / Problem: HYPONATREMIA /METASTATIC BREAST CA /NEUTROPENIC FEVER Discharge Goals Goal(s): Decrease discomfort, Improve disease control, Diagnostic testing, Therapeutic intervention Activity Recommendations Activity Limitations: resume your previous activity . Instructions / Follow-Up Instructions / Follow-Up HOSPITAL FOLLOW UP : 11/12/2017 @ 11:[address] Zeb Madrigal MD General Internal Medicine [facility] LAB : BASIC METABOLIC PANEL IN 1 WEEK Current Hospital Diet Patient's current hospital diet: Regular Diet Discharge Diet Recommended Diet: Regular Diet Fluid Restriction: 1500 ml (6 cups) Pending Studies Studies pending at discharge: no Medical Emergencies . Who to Call and When: Medical Emergencies: If at any time you feel your situation is an emergency, please call 911 immediately. . Non-Emergent Contact Non-Emergency issues call your: Primary Care Provider . . "Provider Documentation" section prepared by Ashley Price. .
== END 2017-11-09 18:50 | disposition home or self-care (01) | DRG 643 ==
LOC: C.EDB 17:17 → C.2E 21:58 → UNDOADMIN 21:58 → ENRESERV 22:06 → C.2E 11-07 16:11 → C.4E 11-07 16:11
PROVIDERS: ADMIT Hospitalist; ATTEND Hospitalist
DX: E22.2 Syndrome of inappropriate secretion of antidiuretic hormone (principal); D61.810 Antineoplastic chemotherapy induced pancytopenia; C79.31 Secondary malignant neoplasm of brain; C79.51 Secondary malignant neoplasm of bone; T45.1X5A Adverse effect of antineoplastic and immunosuppressive drugs, initial encounter; C50.912 Malignant neoplasm of unspecified site of left female breast; E03.9 Hypothyroidism, unspecified; R53.1 Weakness

== ENCOUNTER 2019-08-12 11:08 | Inpatient (IN) ==
[2019-08-12] MEDS ORDERED: DEXTROSE 50% 50 ML SYRINGE IV ONE ×2 (11:26→11:29)
[2019-08-12] MEDS ORDERED: SODIUM CHLORIDE 0.9% 1000ML 1,000 ML IV ONE (11:29)
[2019-08-12] MEDS ORDERED: CEFEPIME 2,000 MG/20 ML VIAL IV STA (11:29)
[2019-08-12 11:46] LABS: Basophils # (auto) 0.03 K/uL (0-0.2); Basophils % (auto) 0.3 %; Eosinophils # (auto) 0.19 K/uL (0-0.5); Eosinophils % (auto) 1.8 %; Hematocrit (blood only) 35.8 % (37-47); Immature Granulocytes # (auto) 0.01 K/uL (0.00-0.02); Immature Granulocytes % (auto) 0.1 %; Lymphocytes # (auto) 1.42 K/uL (1.2-3.4); Lymphocytes % (auto) 13.7 %; Mean Corpuscular Hemoglobin 29.9 pg (25-34); Mean Corpuscular Hgb Conc 33.5 g/dL (32-36); Mean Corpuscular Volume 89.3 fL (80-100); Mean Platelet Volume 10.4 fL (7.4-10.4); Monocytes # (auto) 1.28 K/uL (0.11-0.59); Monocytes % (auto) 12.4 %; Neutrophils # (auto) 7.42 K/uL (1.4-6.5); Neutrophils % (auto) 71.7 %; Platelet Count 294 K/uL (130-400); RDW Standard Deviation 45.7 fL (36.4-46.3); Red Blood Count 4.01 M/uL (4.2-5.4); White Blood Count 10.35 K/uL (4.8-10.8)
--- NOTE | 2019-08-12 11:57 | XRay Report ---
XR chest 1V portable CLINICAL HISTORY: SEPSIS dyspnea COMPARISON STUDY: 04/09/2019 FINDINGS: Lungs are clear. Overlap artifact is present in the mid lung regions bilaterally. Diaphragm s are smooth. IMPRESSION: No acute process. ACT 112: Negative or not required by law. The above report was generated using voice recognition software. It may contain grammatical, syntax or spelling errors. Electronically signed by: Tai Mcclendon M.D. 08/12/2019 11:56 AM
[2019-08-12 12:06] LABS: INR 1.3 (0.9-1.1); Partial Thromboplastin Ratio 1.8
[2019-08-12 12:08] LABS: Alanine Aminotransferase 8 U/L (12-78); Albumin Level 3.1 gm/dl (3.4-5.0); Aspartate Aminotransferase 34 U/L (15-37); BUN Creatinine Ratio 13.3 (10-20); Blood Urea Nitrogen 32 mg/dl (7-18); Calcium 9.6 mg/dl (8.5-10.1); Carbon Dioxide 22 mmol/L (21-32); Chloride 107 mmol/L (98-107); Creatinine Clr Calc Pharmacy 15.9 ml/min; Est GFR (African American) 24.4; Est GFR (Non-African American) 21.1; Glucose 34 mg/dl (70-99); Magnesium 2.2 mg/dl (1.8-2.4); Sodium 138 mmol/L (136-145)
[2019-08-12 12:14] LABS: Albumin Globulin Ratio 0.8 (0.9-2); Alkaline Phosphatase 46 U/L (45-117); Bilirubin,Total 0.8 mg/dl (0.2-1); Globulin 4.1 gm/dl (2.5-4.0); Total Protein 7.2 gm/dl (6.4-8.2); Troponin I < 0.015 ng/ml (0-0.045)
[2019-08-12] MEDS ORDERED: DEXTROSE 5% 500 ML IV SCH (12:15)
[2019-08-12 12:17] LABS: Partial Thromboplastin Time 49.6 Seconds (21.0-31.0)
[2019-08-12] MEDS ORDERED: SODIUM CHLORIDE 0.9% 1000ML 500 ML IV ONE ×2 (12:20→13:54)
[2019-08-12 13:22] LABS: Influenza A virus by PCR Neg for Influ A (Neg); Influenza B virus by PCR Neg for Influ B (Neg)
[2019-08-12 13:43] LABS: Appearance Urine Clear (Clear); Blood Urine 3+ (Negative); Color Urine Amber; Glucose Urine UA Trace (Negative); Ketones Urine Trace (Negative); Leukocyte Esterase Urine 2+ (Negative); Nitrite Urine Negative (Negative); Protein Urine 3+ (Negative); Specific Gravity Urine 1.025 (1.000-1.030); Urobilinogen Urine Negative (Negative); pH Urine 6.5 (4.5-7.5)
[2019-08-12 13:53] LABS: Bilirubin Urine Negative (Negative); Ictotest Urine Negative (Negative)
[2019-08-12 13:55] LABS: RBC Urine >30 /hpf (0-4); WBC Urine >30 /hpf (0-5)
[2019-08-12 13:56] LABS: Bacteria Urine 4+ (Negative); Epithelial Cell Urine >30 /lpf (0-5)
[2019-08-12] MEDS ORDERED: DEXTROSE 5% 1,000 ML IV SCH (14:00)
--- NOTE | 2019-08-12 14:23 | History & Physical Report ---
Date of Service August 12, 2019 Assessment & Plan (1) Vomiting and diarrhea: (2) Hypoglycemia: (3) Hypotension: (4) UTI (urinary tract infection): (5) Hematuria: (6) DIMAS (acute kidney injury): -admit to tele -patient presenting from home with vomiting, diarrhea, and lethargy -in the ED, patient found to be hypotensive with systolic BPs in the 70s and hypoglycemic with blood sugar 34 -BP improved after IVF bolus and blood sugar improved after D50 and D5W infusion -Straight cath urine was very concentrated with visible blood; UA suggesting UTI -Given hypotension and reported fever at home yesterday, patient may be septic however currently afebrile, no leukocytosis, lactic acid normal -will cover broadly with IV Vanco and IV cefepime, adjust per culture results -Urine and blood cultures obtained -Abdominal exam benign, will hold on abdominal imaging at this time -D5 NSS infusion for hypoglycemia, monitor BSG every 2 hours -Creatinine 2.4 (baseline ~ 1.0); likely prerenal in nature secondary to poor p.o. intake and vomiting -Patient had renal ultrasound 03/2019 showing mild right hydroureteronephrosis and polypoid anterior bladder wall thickening. Underlying neoplasm is not excluded; patient has not followed up with urology regarding this; will obtain repeat renal ultrasound (7) Breast cancer, stage 4: (8) Metastasis to bone: (9) Metastasis to brain: -Follows with Dr. Clay Mariee -Currently not receiving treatment -It appears as though the patient has had a steady decline over the past several months. While request the patient remain a full code, he was agreeable to palliative care evaluation (10) Hypothyroidism: -Continue home dose of Synthroid for now, check TSH and T4 if indicated (11) DVT prophylaxis: -SQ heparin History of Present Illness Chief Complaint: Vomiting, Diarrhea, Lethargy Primary Care Provider: Zbe Madrigal MD 59 year old female who presents to the ED for evaluation of vomiting, diarrhea, and lethargy. Patient's is at the bedside who provides the history. Patient has had a very poor appetite for the past 2 days. reports very minimal oral intake. She has had vomiting and several episodes of diarrhea. Describes emesis as bilious in the nature. No hematemesis, coffee ground emesis, BRBPR, or dark tarry stools. Had a fever yesterday of 101.5. This morning patient was very lethargic and only responsive with one word answers. Patient was then brought to the ED for further evaluation. In the ED, patient was hypotensive with systolic BPs in the 70s. This improved after IVF bolus. She was also hypoglycemic with glucose 34. This improved after D50 and D5W infusion. Patient was straight cathed for urine specimen and urine is found to be extremely concentrated and with hematuria. UA suggests UTI. Patient was given IV cefepime. Allergies Allergy/AdvReac Type Severity Reaction Status Date / Time Penicillins Allergy Unknown Verified 04/09/19 12:18 Sulfa (Sulfonamide Allergy Unknown Verified 04/09/19 12:18 Antibiotics) gladolinium Allergy Severe Could not Uncoded 04/09/19 15:32 talk - very disoriented Home Medications Home Medications Medication Instructions Recorded Confirmed Type levothyroxine 62.5 mcg PO QAM 03/19/19 08/12/19 History loratadine-pseudoephedrine 1 tab PO DIRECTED PRN 03/19/19 08/12/19 History [Claritin-D 24 Hour] ondansetron HCl 8 mg PO DIRECTED PRN 03/19/19 08/12/19 History Past Med/Surg History Medical History Breast cancer, stage 4 (Chronic 01/31/15) "DIAGNOSIS: 1. Left breast, invasive lobular carcinoma, grade 2, ER positive, PA weakly positive, Her2 negative, [id number], stage IV with metastatic disease to bone 2. Right breast, invasive lobular carcinoma, grade 2, ER positive, PA negative, Her2 negative, [id number], stage IV 3. Diplopia-MRI revealing left thalamus lesion suspicious for metastasis. Bony metastasis of the calvarium. Left medial rectus muscle soft tissue mass. 4. Bone metastasis to T12 TREATMENT: 1. Neoadjuvant chemotherapy - 11 cycles - paclitaxel (Dr. Clay Mariee) 2. Bilateral mastectomy (Left - ALND, Right - SLN) - 08/21/2015 (Dr. Quyen Franks) 3. tx with Arimidex 4. Status post completion of radiation therapy the chest wall, supraclavicular area, and axilla completed 12/03/2015 5. Status post completion of radiation therapy to the left orbit October 09, 2017. She received 3375 cGy 6. Status post completion of radiation therapy to the brain utilizing SBRT completed October 16, 2017. She received 1800 cGy 7. Status post completion of radiation therapy to the thoracic/lumbar spine completed December 23, 2017. She received 3000 cGy." 8. Chemo with Xeloda - recently placed on hold 03/28/19 Compression of spinal cord (Inactive) Hypotension (Inactive) Hypothyroidism (Chronic) Metastasis to bone (Chronic) Metastasis to brain (Chronic) SIADH (syndrome of inappropriate ADH production) T12 compression fracture (Inactive) Surgical History H/O laminectomy S/P mastectomy, bilateral (Resolved) Family History Sister Breast cancer Father Renal cell cancer Mother Cancer thyroid, cervical, melanoma Other Hypertension Social History Preferred Language: [place] Communication Ability: Effective Claim Adjuster Required: No Beliefs That Will Affect Care: None marital status: Current Living Situation: Spouse current occupational status: retired Feels Safe at Home: Yes Smoking Status: Never smoker Second Hand Exposure: No ; Hx Alcohol Use: No Hx Substance Use: No Review of Systems Review of Systems: Unobtainable due to reduced consciousness Physical Exam Physical Exam: please refer to Dr. Samaniego's addendum for physical exam Results & Data Vital Signs (Past 12 Hours) Vital Signs Temp Pulse Resp BP Pulse Ox 08/12/19 13:53 96 H 18 72/44 L 98 08/12/19 13:46 94 H 16 73/49 L 99 08/12/19 13:17 100 H 17 116/61 99 08/12/19 12:31 100 H 19 111/94 99 08/12/19 12:01 115 H 15 107/69 99 08/12/19 11:46 102 H 15 86/68 L 97 08/12/19 11:44 100 08/12/19 11:42 100 H 18 115/77 08/12/19 11:31 97 H 16 102/63 08/12/19 11:22 101 H 17 75/50 L 08/12/19 11:09 36.4 C L 110 H Laboratory Results Short CBC 08/12/19 08/12/19 08/12/19 Range/Units 11:24 11:30 11:30 WBC 10.35 (4.8-10.8) K/uL Hgb 12.0 (12.0-16.0) g/dL Hct 35.8 L (37-47) % Plt Count 294 (130-400) K/uL Glucose 34 L* (70-99) mg/dl POC Glucose 34 L* (70-99) mg/dl 08/12/19 08/12/19 08/12/19 Range/Units 12:01 13:03 13:50 WBC (4.8-10.8) K/uL Hgb (12.0-16.0) g/dL Hct (37-47) % Plt Count (130-400) K/uL Glucose (70-99) mg/dl POC Glucose 87 75 73 (70-99) mg/dl BMP 08/12/19 11:30 Sodium 138 Potassium 4.0 Chloride 107 Carbon Dioxide 22 BUN 32 H Creatinine 2.40 H Glucose 34 L* Calcium 9.6 Cardiac Enzymes 08/12/19 Range/Units 11:30 Troponin I < 0.015 (0-0.045) ng/ml Liver Function 08/12/19 Range/Units 11:30 Total Bilirubin 0.8 (0.2-1) mg/dl AST 34 (15-37) U/L ALT 8 L (12-78) U/L Alkaline Phosphatase 46 (45-117) U/L Albumin 3.1 L (3.4-5.0) gm/dl Urine 08/12/19 Range/Units 13:17 Urine Color Kisha Urine Appearance Clear (Clear) Urine pH 6.5 (4.5-7.5) Ur Specific [place] 1.025 (1.000-1.030) Urine Protein 3+ H (Negative) Urine Glucose (UA) Trace H (Negative) Diagnostic Findings CXR IMPRESSION: No acute process. Code Status & VTE Plan Code Status Patient is a full code as per Dr. Samaniego's discussion with patient's who is at the bedside. VTE Prophylaxis Plan VTE Prophylaxis will be ordered: Yes Supervising Physician Co-Signing Physician Notes 59 year old female with hx of metastatic breast cancer s/p chemo, radiation, mastectomy, hypothyroidism who presents to the ED for evaluation of vomiting, diarrhea and lethargy over the past 2 days. History and exam obtained by me Detailed history as noted by Samaria EDWARDS above History significant for nausea, vomiting (recurrent but worse over the past 2 days), watery diarrhea, anorexia, worsening weakness. History obtained from . He also reported temp of 101 yesterday. Patient has not eaten anything in about 2 days. Limited ROS as patient was only providing one word answers and stating she has no complaints at this time On physical exam, General: Frail elderly woman with severe malnutrition as evidenced by loss of muscle mass and bony prominences, shivering Eyes: PERRL, conjunctivae normal, mild pallor, anicteric sclerae, EOM intact bilaterally ENMT: External ear and nose normal, dry oral mucosa Neck: Normal visual inspection, no tracheal deviation, no swelling noted Respiratory: Normal respiratory effort, no respiratory distress, lungs clear to auscultation, no crackles and no wheezes Cardiovascular: Pulse is RRR. S1 S2, no murmur, no pedal edema Chest (Breasts): Chest: normal inspection of chest Gastrointestinal (Abdomen): Abdomen is not distended, soft, non-tender to palpation, no guarding, no palpable hepatosplenomegaly, normal bowel sounds Musculoskeletal: No cyanosis or clubbing, no edema Genitourinary: No CVA tenderness Skin: No rash noted on gross inspection, No ulcers noted Neurologic: Alert and oriented x 1 (person only), answering in one word answers No focal weakness, sensation grossly intact Cr is 2.4 Glucose 34 La 1.6 Procalcitonin 4.82 UA has pyuria and leukocyte esterase CT head and Chest xray unremarkable Sepsis Likely sources include gastroenteritis, Urinary tract infection DIMAS Hypoglycemia Was hypotensive to 75/50 on admission Got 2L IVF bolus. BP improved Get blood culture, urine culture Continue broad spectrum antibiotics vanc and cefe for now Continue D5 in saline at 100cc/h Monitor accuchecks q2h for now. IV antiemetic Resume po diet as tolerated Get nutrition consult Get palliative consult for goals of care Check TSH Resume home levothyroxine
--- NOTE | 2019-08-12 14:42 | CT Scan Report ---
CT head/brain wo con CLINICAL HISTORY: 59 years-old Female presenting with confusion. TECHNIQUE: Multidetector CT imaging of the head was performed without the use of intravenous contrast . IV contrast: None. One or more dose lowering techniques were used consistent with the principles of ALARA (as low as reasonably achievable), including automatic exposure control, mA or kV adjustment t o individual patient size, and/or use of iterative reconstruction. COMPARISON: 04/09/2019. CT DOSE (mGy.cm): The estimated cumulative dose is 1074.96 mGy.cm. FINDINGS: Digital Forensic Analyst topogram: Unremarkable. Ventricles and sulci normal in size. No hemorrhage. Brain parenchyma normal in appearance with preser sandra flores-white differentiation. No acute territorial infarct. No mass effect or midline shift. No ext ra-axial fluid collection. Paranasal sinuses and mastoid air cells clear. Calvarium intact. IMPRESSION: 1. No acute intracranial abnormality. ACT 112: Negative or not required by law. Electronically signed by: Bravo Gylnn M.D. 08/12/2019 2:40 PM
[2019-08-12] MEDS ORDERED: CONSULT PHARMACY STA (15:12)
[2019-08-12] MEDS ORDERED: ACETAMINOPHEN 325 MG TAB PO PRN (15:12)
[2019-08-12] MEDS ORDERED: VANCOMYCIN CONSULT ACTIVE PRN (15:35)
[2019-08-12] MEDS ORDERED: CEFEPIME CONSULT ACTIVE PRN (15:36)
[2019-08-12] MEDS ORDERED: VANCOMYCIN HCL 1,000 MG in SODIUM CHLORIDE 0.9% 250 ML IV ONE (15:45)
[2019-08-12] MEDS: D5W AND NSS 1,000 ML IV SCH (16:05)
[2019-08-12 16:19] LABS: Thyroid Stimulating Hormone 6.88 uIu/ml (0.300-4.500)
[2019-08-12 16:31] LABS: T4 Free Thyroxine 1.03 ng/dl (0.8-1.6)
[2019-08-12 16:53] LABS: BUN Creatinine Ratio 14.1 (10-20); Calcium 8.5 mg/dl (8.5-10.1); Creatinine Clr Calc Pharmacy 20.6 ml/min; Est GFR (African American) 29.4; Est GFR (Non-African American) 25.4; Potassium 4.1 mmol/L (3.5-5.1)
[2019-08-12] MEDS: HEPARIN SOD 5,000 UNIT/0.5 ML VIAL SQ SCH ×2 (17:11→23:40)
[2019-08-12] MEDS ORDERED: GLUCOSE 10 TABS/TUBE PO PRN (17:22)
[2019-08-12] MEDS ORDERED: GLUCOSE 40% GEL 15 GM TUBE PO PRN (17:22)
[2019-08-12] MEDS ORDERED: GLUCAGON FOR INJ 1 MG VIAL SQ PRN (17:22)
--- NOTE | 2019-08-12 17:37 | Emergency Department Note ---
Entered by Lala Kaplan acting as a scribe for Doc Joe MD History of Present Illness General Chief complaint: Lethargic Stated complaint: UNRESPONSIVE Source: family Limitations: other (mental state) History of Present Illness Onset (ago): day(s) (this morning) Location: head Pain Consistency: + other (episode) Maximum Pain Intensity: 5 Quality: + other (lethargy) Associated symptoms: + denies other symptoms (frequent infections, recent falls), + nausea/vomiting and + other (diarrhea); no cough and no shortness of breath The patient is a 59 year old female who presents to the Emergency Room with complaints of an episode of lethargy starting this morning. The patients states that the patient has stage 4 metastatic breast cancer and is not currently being treated. He notes that 2 nights ago she had half a slice of pizza and some Pepsi, but by early the next morning, she was vomiting. He states that he tried giving her a little water, but she vomited again. He states that she vomited again at noon yesterday and again in the early afternoon. He notes that she continued to vomit throughout the night and into this morning. The patients states that when she started vomiting, it was yellow in color, but became dark brown later in the evening. He notes that he checked her temperature last night and it was 101.5. He reports that this morning around 5 AM she had an episode of diarrhea that went outside her diaper and notes that she has not vomited since her episode of diarrhea. He states that he decided to bring her into the ED when she started to become unresponsive. He notes that he thinks she may be dehydrated and her blood sugar may be low as this is how she was when it was in the 30s in the fall. The patients denies cough, shortness of breath, having urinary infections frequently, and recent falls. The patients states that she is a full code and is not a DNR or DNI. HPI and ROS are limited secondary to mental state. Home Medications Home Medications Medication Instructions Recorded Confirmed Type levothyroxine 62.5 mcg PO QAM 03/19/19 08/12/19 History loratadine-pseudoephedrine 1 tab PO DIRECTED PRN 03/19/19 08/12/19 History [Claritin-D 24 Hour] ondansetron HCl 8 mg PO DIRECTED PRN 03/19/19 08/12/19 History Allergies Allergy/AdvReac Type Severity Reaction Status Date / Time Penicillins Allergy Unknown Verified 04/09/19 12:18 Sulfa (Sulfonamide Allergy Unknown Verified 04/09/19 12:18 Antibiotics) gladolinium Allergy Severe Could not Uncoded 04/09/19 15:32 talk - very disoriented Past Med/Surg History Medical History Breast cancer, stage 4 (Chronic 01/31/15) "DIAGNOSIS: 1. Left breast, invasive lobular carcinoma, grade 2, ER positive, GA weakly positive, Her2 negative, [id number], stage IV with metastatic disease to bone 2. Right breast, invasive lobular carcinoma, grade 2, ER positive, GA negative, Her2 negative, [id number], stage IV 3. Diplopia-MRI revealing left thalamus lesion suspicious for metastasis. Bony metastasis of the calvarium. Left medial rectus muscle soft tissue mass. 4. Bone metastasis to T12 TREATMENT: 1. Neoadjuvant chemotherapy - 11 cycles - paclitaxel (Dr. Clay Mariee) 2. Bilateral mastectomy (Left - ALND, Right - SLN) - 08/21/2015 (Dr. Quyen Franks) 3. tx with Arimidex 4. Status post completion of radiation therapy the chest wall, supraclavicular area, and axilla completed 12/03/2015 5. Status post completion of radiation therapy to the left orbit October 09, 2017. She received 3375 cGy 6. Status post completion of radiation therapy to the brain utilizing SBRT completed October 16, 2017. She received 1800 cGy 7. Status post completion of radiation therapy to the thoracic/lumbar spine completed December 23, 2017. She received 3000 cGy." 8. Chemo with Xeloda - recently placed on hold 03/28/19 Compression of spinal cord (Inactive) Hypotension (Inactive) Hypothyroidism (Chronic) Metastasis to bone (Chronic) Metastasis to brain (Chronic) SIADH (syndrome of inappropriate ADH production) T12 compression fracture (Inactive) Surgical History H/O laminectomy S/P mastectomy, bilateral (Resolved) Family History Sister Breast cancer Father Renal cell cancer Mother Cancer thyroid, cervical, melanoma Other Hypertension Social History Preferred Language: Mauritian Communication Ability: Effective House Supervisor Required: No Beliefs That Will Affect Care: None marital status: Current Living Situation: Spouse current occupational status: retired Other Information That Helps Us Care for You: No Feels Safe at Home: Yes Safety Concerns: Feels Safe At This Time Smoking Status: Never smoker Second Hand Exposure: No ; Hx Alcohol Use: No Hx Substance Use: No Review of Systems HPI and ROS are limited secondary to mental state. Physical Exam Vital Signs Vital Signs - 24 hr 08/12/19 11:09 08/12/19 11:22 08/12/19 11:31 Temperature 36.4 C L Temperature Source Oral Pulse Rate 110 H 101 H 97 H Pulse Rate from SpO2 Sensor Respiratory Rate 17 16 Respiratory Depth Shallow Blood Pressure 75/50 L 102/63 Blood Pressure Mean 64 70 Pulse Oximetry Oxygen Delivery Method Sepsis Recent Fever Within 48 Hours Yes Sepsis New/Unexplained Change in Mental Status Yes Sepsis Action Taken by Nursing Physician Notified 08/12/19 11:42 08/12/19 11:44 08/12/19 11:46 Temperature Temperature Source Pulse Rate 100 H 102 H Pulse Rate from SpO2 Sensor 111 H Respiratory Rate 18 15 Respiratory Depth Blood Pressure 115/77 86/68 L Blood Pressure Mean 85 82 Pulse Oximetry 100 97 Oxygen Delivery Method Room Air Room Air Sepsis Recent Fever Within 48 Hours Sepsis New/Unexplained Change in Mental Status Sepsis Action Taken by Nursing 08/12/19 12:01 08/12/19 12:31 Temperature Temperature Source Pulse Rate 115 H 100 H Pulse Rate from SpO2 Sensor 100 H Respiratory Rate 15 19 Respiratory Depth Blood Pressure 107/69 111/94 Blood Pressure Mean 80 99 Pulse Oximetry 99 99 Oxygen Delivery Method Room Air Room Air Sepsis Recent Fever Within 48 Hours Sepsis New/Unexplained Change in Mental Status Sepsis Action Taken by Nursing GENERAL: Patient is in mild distress. Frail appearing. HEENT: No acute trauma, normocephalic atraumatic, mucous membranes are markedly dry, no nasal congestion, no scleral icterus. NECK: No stridor, no adenopathy, no meningismus, trachea is midline. LUNGS: Diminished breath sounds. No wheezes or rhonchi. No respiratory distress. Breath sounds are equal bilaterally. HEART: Without murmurs gallops or rubs, regular rate and rhythm. ABDOMEN: Soft, nontender, bowel sounds positive, no hernias, no peritonitis. EXTREMITIES: No cyanosis or edema, full range of motion of all the joints without pain or difficulty, no signs for acute trauma. NEUROLOGIC: Responds to pain, otherwise basically nonverbal. Does move all extremities. Seems quite somnolent. SKIN: No rash, no jaundice, no diaphoresis. Course Course 1119: The patient was evaluated in room A3. A complete history and physical exam was performed. 1207: I reevaluated the patient and she is more responsive. Her sugar is now in the 80s. 1232: I reevaluated the patient and updated her and her on her test results. I discussed the treatment plan with them. They verbally agree and understand. 1238: I discussed the patient's [facility] She will evaluate the patient for further management under Dr. Samaniego's service. Administered Medications Dextrose (Dextrose 50%) 25 - 50 ml IV UD PRN; Protocol PRN Reason: Hypoglycemia Protocol Stop: 09/11/19 17:21 Last Admin: 08/12/19 17:45 Dose: 25 ml Documented by: [id number] Heparin Sodium (Porcine) (Heparin Sodium (Porcine)) 5,000 units SQ Q8 RICARDO Stop: 09/11/19 15:59 Last Admin: 08/12/19 17:11 Dose: 5,000 units Documented by: [id number] Cosigned by: [id number] Dextrose/Sodium Chloride (D5w And Nss) 1,000 mls @ 100 mls/hr IV .Q10H RICARDO Stop: 09/11/19 15:11 Last Admin: 08/12/19 16:05 Dose: 100 mls/hr Documented by: [id number] Discontinued Medications Dextrose (Dextrose 50%) Confirm Administered Dose 50 ml IV .STK-MED ONE Stop: 08/12/19 11:27 Last Admin: 08/12/19 11:29 Dose: 25 ml Documented by: [id number] Dextrose (Dextrose 50%) 25 ml IV NOW ONE Stop: 08/12/19 11:30 Last Admin: 08/12/19 11:53 Dose: Not Given Documented by: [id number] Sodium Chloride (Nss 1000ml) 1,000 mls @ 999 mls/hr IV .Q1H1M ONE Stop: 08/12/19 12:29 Last Infusion: 08/12/19 13:00 Dose: 0 mls/hr Documented by: [id number] Admin: 08/12/19 11:54 Dose: 999 mls/hr Documented by: [id number] Cefepime HCl (Maxipime) 2,000 mg in 20 mls @ 5 mls/min IV NOW STA; Protocol Stop: 08/12/19 11:32 Last Admin: 08/12/19 12:16 Dose: 5 mls/min Documented by: [id number] Dextrose (D5w) 500 mls @ 100 mls/hr IV .Q5H RICARDO Stop: 09/11/19 12:14 Last Infusion: 08/12/19 13:58 Dose: 0 mls/hr Documented by: [id number] Admin: 08/12/19 12:16 Dose: 100 mls/hr Documented by: [id number] Sodium Chloride (Nss 1000ml) 500 mls @ 999 mls/hr IV .Q31M ONE Stop: 08/12/19 12:50 Last Infusion: 08/12/19 13:20 Dose: 0 mls/hr Documented by: [id number] Admin: 08/12/19 12:38 Dose: 999 mls/hr Documented by: [id number] Sodium Chloride (Nss 1000ml) 500 mls @ 999 mls/hr IV .Q31M ONE Stop: 08/12/19 14:24 Last Infusion: 08/12/19 14:30 Dose: 0 mls/hr Documented by: [id number] Admin: 08/12/19 13:58 Dose: 999 mls/hr Documented by: [id number] Dextrose (D5w) 1,000 mls @ 125 mls/hr IV .Q8H RICARDO Stop: 09/11/19 13:59 Last Infusion: 08/12/19 18:26 Dose: 0 mls/hr Documented by: [id number] Admin: 08/12/19 13:58 Dose: 125 mls/hr Documented by: [id number] Vancomycin HCl 1,000 mg/ (Sodium Chloride) 270 mls @ 125 mls/hr IV ONE ONE Stop: 08/12/19 17:54 Last Infusion: 08/12/19 18:25 Dose: 0 mls/hr Documented by: [id number] Admin: 01/24/20 16:06 Dose: 125 mls/hr Documented by: [id number] Critical Care Time Critical Care Time: Yes Total Critical Care Time: 46 I have personally spent 46 minutes of critical care time in the direct management of this patient. This includes bedside care, interpretation of diagnostic studies, and testing, discussion with consultants, patient, and family members, and other required patient management activities. This 46 minutes is in excess of all separately billable procedures. Medical Decision Making Differential Diagnosis Differential diagnoses include sepsis, pneumonia, UTI, dehydration, electrolyte imbalance, renal failure, liver failure, influenza, intracranial bleeding. Medical Records Attestation: I reviewed the patient's medical records. Home Medications Current Medication List: was personally reviewed by me Laboratory Data Attestation: I reviewed the patient's lab results. Result diagrams: 08/12/19 11:30 08/12/19 16:03 Lab Results 08/12/19 08/12/19 08/12/19 Range/Units 11:24 11:30 11:30 WBC 10.35 (4.8-10.8) K/uL RBC 4.01 L (4.2-5.4) M/uL Hgb 12.0 (12.0-16.0) g/dL Hct 35.8 L (37-47) % MCV 89.3 (80-100) fL MCH 29.9 (25-34) pg MCHC 33.5 (32-36) g/dL RDW Std Deviation 45.7 (36.4-46.3) fL RDW Coeff of Krys 14.0 (11.5-14.5) % Plt Count 294 (130-400) K/uL MPV 10.4 (7.4-10.4) fL Immature Gran % (Auto) 0.1 % Neut % (Auto) 71.7 % Lymph % (Auto) 13.7 % Graham % (Auto) 12.4 % Eos % (Auto) 1.8 % Baso % (Auto) 0.3 % Immature Gran # (Auto) 0.01 (0.00-0.02) K/uL Neut # (Auto) 7.42 H (1.4-6.5) K/uL Lymph # (Auto) 1.42 (1.2-3.4) K/uL Graham # (Auto) 1.28 H (0.11-0.59) K/uL Eos # (Auto) 0.19 (0-0.5) K/uL Baso # (Auto) 0.03 (0-0.2) K/uL PT 13.0 H (9.0-12.0) Seconds INR 1.3 H (0.9-1.1) APTT 49.6 H* (21.0-31.0) Seconds PTT Ratio 1.8 Sodium (136-145) mmol/L Potassium (3.5-5.1) mmol/L Chloride (98-107) mmol/L Carbon Dioxide (21-32) mmol/L Anion Gap (3-11) BUN (7-18) mg/dl Creatinine (0.6-1.2) mg/dl Est Cr Clr Drug Dosing ml/min Est GFR ( Amer) Est GFR (Non-Af Amer) BUN/Creatinine Ratio (10-20) Glucose (70-99) mg/dl POC Glucose 34 L* (70-99) mg/dl Lactate (0.4-2.0) mmol/L Calcium (8.5-10.1) mg/dl Magnesium (1.8-2.4) mg/dl Total Bilirubin (0.2-1) mg/dl AST (15-37) U/L ALT (12-78) U/L Alkaline Phosphatase (45-117) U/L Troponin I (0-0.045) ng/ml Total Protein (6.4-8.2) gm/dl Albumin (3.4-5.0) gm/dl Globulin (2.5-4.0) gm/dl Albumin/Globulin Ratio (0.9-2) Procalcitonin (0-0.5) ng/ml TSH (0.300-4.500) uIu/ml Free T4 (0.8-1.6) ng/dl Influenza Type A (PCR) (Neg) Influenza Type B (PCR) (Neg) 08/12/19 08/12/19 08/12/19 Range/Units 11:30 11:30 11:30 WBC (4.8-10.8) K/uL RBC (4.2-5.4) M/uL Hgb (12.0-16.0) g/dL Hct (37-47) % MCV (80-100) fL MCH (25-34) pg MCHC (32-36) g/dL RDW Std Deviation (36.4-46.3) fL RDW Coeff of Krys (11.5-14.5) % Plt Count (130-400) K/uL MPV (7.4-10.4) fL Immature Gran % (Auto) % Neut % (Auto) % Lymph % (Auto) % Graham % (Auto) % Eos % (Auto) % Baso % (Auto) % Immature Gran # (Auto) (0.00-0.02) K/uL Neut # (Auto) (1.4-6.5) K/uL Lymph # (Auto) (1.2-3.4) K/uL Graham # (Auto) (0.11-0.59) K/uL Eos # (Auto) (0-0.5) K/uL Baso # (Auto) (0-0.2) K/uL PT (9.0-12.0) Seconds INR (0.9-1.1) APTT (21.0-31.0) Seconds PTT Ratio Sodium 138 (136-145) mmol/L Potassium 4.0 (3.5-5.1) mmol/L Chloride 107 (98-107) mmol/L Carbon Dioxide 22 (21-32) mmol/L Anion Gap 8.0 (3-11) BUN 32 H (7-18) mg/dl Creatinine 2.40 H (0.6-1.2) mg/dl Est Cr Clr Drug Dosing 15.9 ml/min Est GFR ( Amer) 24.4 Est GFR (Non-Af Amer) 21.1 BUN/Creatinine Ratio 13.3 (10-20) Glucose 34 L* (70-99) mg/dl POC Glucose (70-99) mg/dl Lactate 1.6 (0.4-2.0) mmol/L Calcium 9.6 (8.5-10.1) mg/dl Magnesium 2.2 (1.8-2.4) mg/dl Total Bilirubin 0.8 (0.2-1) mg/dl AST 34 (15-37) U/L ALT 8 L (12-78) U/L Alkaline Phosphatase 46 (45-117) U/L Troponin I < 0.015 (0-0.045) ng/ml Total Protein 7.2 (6.4-8.2) gm/dl Albumin 3.1 L (3.4-5.0) gm/dl Globulin 4.1 H (2.5-4.0) gm/dl Albumin/Globulin Ratio 0.8 L (0.9-2) Procalcitonin 4.82 H (0-0.5) ng/ml TSH (0.300-4.500) uIu/ml Free T4 (0.8-1.6) ng/dl Influenza Type A (PCR) (Neg) Influenza Type B (PCR) (Neg) 08/12/19 08/12/19 08/12/19 Range/Units 11:30 12:01 12:18 WBC (4.8-10.8) K/uL RBC (4.2-5.4) M/uL Hgb (12.0-16.0) g/dL Hct (37-47) % MCV (80-100) fL MCH (25-34) pg MCHC (32-36) g/dL RDW Std Deviation (36.4-46.3) fL RDW Coeff of Krys (11.5-14.5) % Plt Count (130-400) K/uL MPV (7.4-10.4) fL Immature Gran % (Auto) % Neut % (Auto) % Lymph % (Auto) % Graham % (Auto) % Eos % (Auto) % Baso % (Auto) % Immature Gran # (Auto) (0.00-0.02) K/uL Neut # (Auto) (1.4-6.5) K/uL Lymph # (Auto) (1.2-3.4) K/uL Graham # (Auto) (0.11-0.59) K/uL Eos # (Auto) (0-0.5) K/uL Baso # (Auto) (0-0.2) K/uL PT (9.0-12.0) Seconds INR (0.9-1.1) APTT (21.0-31.0) Seconds PTT Ratio Sodium (136-145) mmol/L Potassium (3.5-5.1) mmol/L Chloride (98-107) mmol/L Carbon Dioxide (21-32) mmol/L Anion Gap (3-11) BUN (7-18) mg/dl Creatinine (0.6-1.2) mg/dl Est Cr Clr Drug Dosing ml/min Est GFR ( Amer) Est GFR (Non-Af Amer) BUN/Creatinine Ratio (10-20) Glucose (70-99) mg/dl POC Glucose 87 (70-99) mg/dl Lactate (0.4-2.0) mmol/L Calcium (8.5-10.1) mg/dl Magnesium (1.8-2.4) mg/dl Total Bilirubin (0.2-1) mg/dl AST (15-37) U/L ALT (12-78) U/L Alkaline Phosphatase (45-117) U/L Troponin I (0-0.045) ng/ml Total Protein (6.4-8.2) gm/dl Albumin (3.4-5.0) gm/dl Globulin (2.5-4.0) gm/dl Albumin/Globulin Ratio (0.9-2) Procalcitonin (0-0.5) ng/ml TSH 6.880 H (0.300-4.500) uIu/ml Free T4 1.03 (0.8-1.6) ng/dl Influenza Type A (PCR) Neg for Influ A (Neg) Influenza Type B (PCR) Neg for Influ B (Neg) 08/12/19 Range/Units 13:03 WBC (4.8-10.8) K/uL RBC (4.2-5.4) M/uL Hgb (12.0-16.0) g/dL Hct (37-47) % MCV (80-100) fL MCH (25-34) pg MCHC (32-36) g/dL RDW Std Deviation (36.4-46.3) fL RDW Coeff of Krys (11.5-14.5) % Plt Count (130-400) K/uL MPV (7.4-10.4) fL Immature Gran % (Auto) % Neut % (Auto) % Lymph % (Auto) % Graham % (Auto) % Eos % (Auto) % Baso % (Auto) % Immature Gran # (Auto) (0.00-0.02) K/uL Neut # (Auto) (1.4-6.5) K/uL Lymph # (Auto) (1.2-3.4) K/uL Graham # (Auto) (0.11-0.59) K/uL Eos # (Auto) (0-0.5) K/uL Baso # (Auto) (0-0.2) K/uL PT (9.0-12.0) Seconds INR (0.9-1.1) APTT (21.0-31.0) Seconds PTT Ratio Sodium (136-145) mmol/L Potassium (3.5-5.1) mmol/L Chloride (98-107) mmol/L Carbon Dioxide (21-32) mmol/L Anion Gap (3-11) BUN (7-18) mg/dl Creatinine (0.6-1.2) mg/dl Est Cr Clr Drug Dosing ml/min Est GFR ( Amer) Est GFR (Non-Af Amer) BUN/Creatinine Ratio (10-20) Glucose (70-99) mg/dl POC Glucose 75 (70-99) mg/dl Lactate (0.4-2.0) mmol/L Calcium (8.5-10.1) mg/dl Magnesium (1.8-2.4) mg/dl Total Bilirubin (0.2-1) mg/dl AST (15-37) U/L ALT (12-78) U/L Alkaline Phosphatase (45-117) U/L Troponin I (0-0.045) ng/ml Total Protein (6.4-8.2) gm/dl Albumin (3.4-5.0) gm/dl Globulin (2.5-4.0) gm/dl Albumin/Globulin Ratio (0.9-2) Procalcitonin (0-0.5) ng/ml TSH (0.300-4.500) uIu/ml Free T4 (0.8-1.6) ng/dl Influenza Type A (PCR) (Neg) Influenza Type B (PCR) (Neg) Imaging Data Radiologist's Impression: Radiology results as stated below per my review and the radiologist's interpretation: XR chest 1V portable CLINICAL HISTORY: SEPSIS dyspnea COMPARISON STUDY: 04/09/2019 FINDINGS: Lungs are clear. Overlap artifact is present in the mid lung regions bilaterally. Diaphragms are smooth. IMPRESSION: No acute process. ACT 112: Negative or not required by law. The above report was generated using voice recognition software. It may contain grammatical, syntax or spelling errors. Electronically signed by: Tai Mcclendon M.D. 08/12/2019 11:56 AM ECG Data Attestation: I personally reviewed and interpreted this ECG as follows: Indication: + altered mental status Rate (beats per minute): 102 Rhythm: + sinus tachycardia ECG ST segments: + ST depression (anterior and lateral) and + T-wave inversions (anterior and lateral); no ST elevation ECG Findings: + Other (QT-c 448); no PVCs Comparison ECG Date: from (04/09/2019) Change: the following changes noted (ST and T wave changes are new) Blood Pressure Blood Pressure Findings: Low blood pressure Blood Pressure Disposition: further management by hospitalist MDM Narrative There is no leukocytosis or concerning anemia. INR is slightly elevated at 1.3. Creatinine was elevated at over 2, this is consistent with acute kidney injury/dehydration. BSG was quite low in the 30s. No worrisome liver enzyme elevation. Lactic acid level was not elevated making severe sepsis less likely. The patient's TSH was slightly high however, the T4 was normal. Urinalysis does suggest infection. Blood cultures and urine cultures are pending. In fluenza testing was negative. Chest film did not show pneumonia or CHF. Brain CT did not show any acute bleed or mass-effect. The patient presents hypotensive with a change in mental status. Clinically, she seemed quite dehydrated. Sepsis was certainly a concern. The patient was aggressively managed. She received IV saline, 1.5 L. She received 25 cc of D/50 IV. Patient received IV cefepime as antibiotic coverage. With the above treatment, the patient became more awake and interactive. She was eventually placed on a D5 drip at around 125 cc/h. This was hung in an attempt to keep her blood sugar from dropping again. The patient has had improvement in her vital signs with the treatment mentioned above. I do think a hospital stay is warranted. She certainly may have early sepsis although, severe dehydration could present similar. Further care in the hospital and further work-up in the hospital is warranted. I spoke to the patient and her , I spoke with case management. The on-call hospitalist was consulted. Continuous Cardiac Monitoring: An order was placed for continuous cardiac monitoring. The monitor shows a rate of 101 with sinus tachycardia. Impression & Plan Hypotension, DIMAS (acute kidney injury), Dehydration, Change in mental status, Fever, Hypoglycemia, UTI (urinary tract infection) Discharge Plan Visit Data *Final* Discharge Date/Time: 08/12/19 14:23 Chief Complaint: Lethargic Stated Complaint: UNRESPONSIVE ED Provider: Doc Joe Discharge Problem: Hypotension, DIMAS (acute kidney injury), Dehydration, Change in mental status, Fever, Hypoglycemia, UTI (urinary tract infection) Patient Disposition: Admitted As Inpatient Discharge Instructions Interventions: ED Discharge Assessment Last Done: 08/12/19 14:23 Discharge Problem: Hypotension Qualifiers: Hypotension type: unspecified hypotension type Qualified Code(s): I95.9 - Hypotension, unspecified Change in mental status Qualifiers: Altered mental status type: unspecified Qualified Code(s): R41.82 - Altered mental status, unspecified Fever Qualifiers: Fever type: unspecified Qualified Code(s): R50.9 - Fever, unspecified UTI (urinary tract infection) Qualifiers: Urinary tract infection type: site unspecified Hematuria presence: with hematuria Qualified Code(s): N39.0 - Urinary tract infection, site not specified The scribe's documentation has been prepared under my direction and personally reviewed by me in its entirety. I confirm that the note above accurately reflects all work, treatment, procedures, and medical decision making performed by me.
[2019-08-12] MEDS: DEXTROSE 50% 50 ML SYRINGE IV PRN (17:45)
--- NOTE | 2019-08-12 20:47 | Ultrasound Report ---
RENAL ULTRASOUND HISTORY: hematuria, DIMAS COMPARISON: Renal ultrasound 03/21/2019. FINDINGS: Right kidney: 8.7 cm. Mild right hydronephrosis is again noted. Normal corticomedullary differentiati on and cortical thickness. Left kidney: 8.4 cm. Mild left hydronephrosis. Normal corticomedullary differentiation and cortical t hickness. Bladder: Decompressed. There is diffuse severe bladder wall thickening. IMPRESSION: 1. Mild bilateral hydronephrosis. 2. Severe diffuse bladder wall thickening. ACT 112: Negative or not required by law. Electronically signed by: Bridger Lee M.D. 08/12/2019 8:45 PM
[2019-08-12] MEDS ORDERED: DEXTROSE 50% 50 ML SYRINGE IV STA (21:12)
[2019-08-12] MEDS ORDERED: ACETAMINOPHEN 1,000 MG/100 ML VIAL IV PRN (22:34)
[2019-08-12] MEDS ORDERED: ACETAMINOPHEN 500 MG TAB PO PRN (22:37)
[2019-08-12] MEDS ORDERED: ACETAMINOPHEN 1,000 MG/100 ML VIAL IV ONE ×2 (22:45)
[2019-08-12] MEDS ORDERED: HEPARIN 100 UNIT/ML 5ML FLUSH FLUSH PRN (23:08)
[2019-08-12] MEDS: CEFEPIME 1,000 MG in SYRINGE 0 ML IV SCH (23:45)
[2019-08-12] MEDS ORDERED: SODIUM CHLORIDE 0.9% 500 ML IV SCH (23:45)
[2019-08-13] MEDS: D5W AND NSS 1,000 ML IV SCH ×3 (03:22→19:33)
[2019-08-13] MEDS ORDERED: SODIUM CHLORIDE 0.9% 500 ML IV SCH (04:00)
[2019-08-13] MEDS: HEPARIN SOD 5,000 UNIT/0.5 ML VIAL SQ SCH ×3 (04:07→21:41)
[2019-08-13] MEDS: LEVOTHYROXINE SODIUM 25 MCG TABLET PO SCH (05:06)
[2019-08-13 05:49] LABS: Hematocrit (blood only) 25.9 % (37-47); Hemoglobin 8.5 g/dL (12.0-16.0); Mean Corpuscular Hemoglobin 29.3 pg (25-34); Mean Corpuscular Hgb Conc 32.8 g/dL (32-36); Mean Corpuscular Volume 89.3 fL (80-100); Mean Platelet Volume 10.1 fL (7.4-10.4); Platelet Count 169 K/uL (130-400); RDW Standard Deviation 45.8 fL (36.4-46.3); White Blood Count 6.32 K/uL (4.8-10.8)
[2019-08-13 06:20] LABS: BUN Creatinine Ratio 14.3 (10-20); Calcium 7.5 mg/dl (8.5-10.1); Est GFR (African American) 35.3; Est GFR (Non-African American) 30.5; Potassium 3.2 mmol/L (3.5-5.1)
--- NOTE | 2019-08-13 06:25 | Electrocardiogram Report ---
Test Reason : Blood Pressure : / mmHG Vent. Rate : 102 BPM Atrial Rate : 102 BPM P-R Int : 146 ms QRS Dur : 076 ms QT Int : 344 ms P-R-T Axes : 058 -39 126 degrees QTc Int : 448 ms Sinus tachycardia Left axis deviation Abnormal ECG When compared with ECG of 09-APR-2019 12:40, Vent. rate has increased BY 45 BPM Nonspecific T wave abnormality, improved in Inferior leads T wave inversion now evident in Anterolateral leads Confirmed by Bhupinder Jackson ([id number]) on 08/13/2019 6:24:50 AM Referred By: ED Confirmed By:Bhupinder Jackson
[2019-08-13] MEDS: POTASSIUM CHLORIDE / WTR 10 MEQ/100 ML PLCT IV SCH ×4 (06:47→10:05)
[2019-08-13] MEDS ORDERED: VANCOMYCIN HCL 750 MG in SODIUM CHLORIDE 0.9% 250 ML IV ONE (08:30)
--- NOTE | 2019-08-13 12:16 | Hospitalist Progress Note ---
Date of Service August 13, 2019 Assessment & Plan (1) Vomiting and diarrhea: Has been ongoing for some time No intestinal obstruction Likely due to cancer with metastasis Clinically better since admission (2) Hypoglycemia: Not been eating or drinking at home Hypoglycemia secondary to poor nutrition and again contributed by metastatic disease Has been on D5 infusion and maintaining blood sugar Will advise more oral intake of food (3) Hypotension: Secondary to infection seems to be UTI Again complicated by dehydration Intravenous fluid to maintain blood pressure (4) UTI (urinary tract infection): UA examination is suggestive of UTI Has been started him on intravenous cefepime (5) Hematuria: Has thickened gallbladder wall with mild hydronephrosis on either side Has bladder incontinence secondary to paraplegia May need to have urology evaluation if hematuria persists (6) DIMAS (acute kidney injury): -admit to tele -patient presenting from home with vomiting, diarrhea, and lethargy -in the ED, patient found to be hypotensive with systolic BPs in the 70s and hypoglycemic with blood sugar 34 -BP improved after IVF bolus and blood sugar improved after D50 and D5W infusion -Straight cath urine was very concentrated with visible blood; UA suggesting UTI -Given hypotension and reported fever at home yesterday, patient may be septic however currently afebrile, no leukocytosis, lactic acid normal -will cover broadly with IV Vanco and IV cefepime, adjust per culture results -Urine and blood cultures obtained-pending for now -Patient had renal ultrasound 03/2019 showing mild right hydroureteronephrosis and polypoid anterior bladder wall thickening. 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 Clay Mariee -Currently not receiving treatment -It appears as though the patient has had a steady decline over the past several months. While request the patient remain a full code, he was agreeable to palliative care evaluation (10) Hypothyroidism: -Continue home dose of Synthroid for now, check TSH and T4 if indicated (11) DVT prophylaxis: -SQ heparin Discussed with the in detail Overall prognosis remains poor Palliative care consulted Subjective 08/13/2019 Patient is seen and examined in telemetry unit in presence of the She is a 59-year-old female significant past medical history including bilateral breast cancer with metastasis to bone and brain and spinal cord was admitted yesterday with nausea, vomiting and diarrhea, hypoglycemia and hypotension Remains stable but generally very weak and lethargic Complains generalized pain but nausea and vomiting seem to be improving Review of Systems Review of Systems: Unobtainable due to cognitive status Constitutional: + body aches, + fatigue, + weakness, + anorexia and + weight loss Respiratory: no dyspnea Cardiovascular: no chest pain Gastrointestinal: + abdominal pain and + fecal incontinence Musculoskeletal: No acute arthritis Physical Exam Physical Exam: Lying in bed, lethargic with mild generalized pain Constitutional: + ill appearing, + thin and + cachectic; no acute distress Eyes: PERRL, conjunctivae normal, anicteric sclerae ENMT: external ear and nose normal, oropharynx normal Neck: trachea midline, no thyromegaly Respiratory: normal respiratory effort; no respiratory distress Auscultation: + diminished lung sounds Cardiovascular: Rate/Rhythm: regular rate and regular rhythm Heart Sounds: no murmur Gastrointestinal (Abdomen): Inspection/Auscultation: abdomen normal to inspection and normal bowel sounds Musculoskeletal: No acute arthritis in any joints Neurologic: Generally very weak and lethargic. Hardly moving any extremities. Has been almost bedbound at home Results & Data Vital Signs (Past 12 Hours) Vital Signs Temp Pulse Pulse Pulse Resp BP Pulse Ox 08/13/19 11:16 36.6 C 66 18 92/63 L 98 08/13/19 07:47 68 08/13/19 07:36 36.3 C L 65 20 87/65 L 100 08/13/19 05:05 76/50 L 08/13/19 03:05 36.4 C L 74 20 74/46 L 100 Laboratory Results Short CBC 08/13/19 Range/Units 05:35 WBC 6.32 (4.8-10.8) K/uL Hgb 8.5 L D (12.0-16.0) g/dL Hct 25.9 L (37-47) % Plt Count 169 (130-400) K/uL BMP 08/12/19 08/13/19 16:03 05:35 Sodium 136 140 Potassium 4.1 3.2 L D Chloride 110 H 117 H Carbon Dioxide 21 18 L BUN 29 H 25 H Creatinine 2.06 H D 1.77 H Glucose 94 133 H Calcium 8.5 7.5 L Cardiac Enzymes 08/12/19 Range/Units 11:30 Troponin I < 0.015 (0-0.045) ng/ml Liver Function 08/12/19 Range/Units 11:30 Total Bilirubin 0.8 (0.2-1) mg/dl Alkaline Phosphatase 46 (45-117) U/L Urine 08/12/19 Range/Units 13:17 Urine Color Kisha Urine Appearance Clear (Clear) Urine pH 6.5 (4.5-7.5) Ur Specific [place] 1.025 (1.000-1.030) Urine Protein 3+ H (Negative) Urine Glucose (UA) Trace H (Negative) Medications Administered Current Inpatient Medications Acetaminophen (Tylenol) 650 mg PO Q4H PRN PRN Reason: Pain or Fever Stop: 09/11/19 15:11 Acetaminophen (Tylenol) 1,000 mg PO Q8H PRN; Protocol PRN Reason: Pain or Fever Stop: 09/11/19 22:36 Dextrose (Dextrose 50%) 25 - 50 ml IV UD PRN; Protocol PRN Reason: Hypoglycemia Protocol Stop: 09/11/19 17:21 Last Admin: 08/12/19 17:45 Dose: 25 ml Documented by: Glucagon (Glucagen) 1 mg SQ UD PRN; Protocol PRN Reason: Hypoglycemia Protocol Stop: 09/11/19 17:21 Glucose (Dex4 Glucose) 4 - 8 tabs PO UD PRN; Protocol PRN Reason: Hypoglycemia Protocol Stop: 09/11/19 17:21 Glucose (Glucose 40%) 15 - 30 gm PO UD PRN; Protocol PRN Reason: Hypoglycemia Protocol Stop: 09/11/19 17:21 Heparin Sodium (Porcine) (Heparin Sodium (Porcine)) 5,000 units SQ Q8 RICARDO Stop: 09/11/19 15:59 Last Admin: 08/13/19 04:07 Dose: Not Given Documented by: Heparin Sodium (Porcine) (Heparin Sod 100 Unit/Ml Flush) 5 ml FLUSH PRN PRN PRN Reason: Flush Stop: 09/11/19 23:14 Dextrose/Sodium Chloride (D5w And Nss) 1,000 mls @ 125 mls/hr IV .Q8H RICARDO Stop: 09/11/19 15:11 Last Admin: 08/13/19 11:45 Dose: 125 mls/hr Documented by: Cefepime HCl 1,000 mg/ Syringe 11.3 mls @ 5.5 mls/min IV Q12H RICARDO; Protocol Stop: 08/15/19 00:00 Last Admin: 08/12/19 23:45 Dose: 5.5 mls/min Documented by: Acetaminophen (Ofirmev) 1,000 mg in 100 mls @ 400 mls/hr IV Q8H PRN PRN Reason: Pain Stop: 08/16/19 11:50 Levothyroxine Sodium (Synthroid) 62.5 mcg PO DAILYBB RICARDO Stop: 09/12/19 06:29 Last Admin: 08/13/19 05:06 Dose: Not Given Documented by: Miscellaneous (Carbohydrates For Hypoglycemia) 15 - 30 gm PO UD PRN PRN Reason: Hypoglycemia Protocol Stop: 09/11/19 17:21 Miscellaneous Information (Consult) 1 ea N/A UD PRN PRN Reason: Consult Stop: 09/11/19 15:34 Miscellaneous Information (Cefepime Consult Active) 1 ea N/A UD PRN PRN Reason: Consult Stop: 09/11/19 15:35
[2019-08-13] MEDS: CEFEPIME 1,000 MG in SYRINGE 0 ML IV SCH (12:24)
[2019-08-13] MEDS: ACETAMINOPHEN 1,000 MG/100 ML VIAL IV PRN ×2 (12:25→22:29)
[2019-08-14] MEDS: CEFEPIME 1,000 MG in SYRINGE 0 ML IV SCH (00:01)
[2019-08-14] MEDS: D5W AND NSS 1,000 ML IV SCH ×3 (02:36→17:38)
[2019-08-14] MEDS: LEVOTHYROXINE SODIUM 25 MCG TABLET PO SCH (06:10)
[2019-08-14] MEDS: HEPARIN SOD 5,000 UNIT/0.5 ML VIAL SQ SCH ×3 (06:10→21:30)
[2019-08-14 07:36] LABS: Basophils # (auto) 0.03 K/uL (0-0.2); Basophils % (auto) 0.6 %; Eosinophils # (auto) 0.54 K/uL (0-0.5); Eosinophils % (auto) 10.8 %; Hematocrit (blood only) 26.9 % (37-47); Hemoglobin 8.9 g/dL (12.0-16.0); Lymphocytes # (auto) 0.37 K/uL (1.2-3.4); Lymphocytes % (auto) 7.4 %; Mean Corpuscular Hemoglobin 29.6 pg (25-34); Mean Corpuscular Hgb Conc 33.1 g/dL (32-36); Mean Corpuscular Volume 89.4 fL (80-100); Mean Platelet Volume 10.5 fL (7.4-10.4); Monocytes # (auto) 0.49 K/uL (0.11-0.59); Monocytes % (auto) 9.8 %; Neutrophils # (auto) 3.56 K/uL (1.4-6.5); Neutrophils % (auto) 71.4 %; Platelet Count 185 K/uL (130-400); RDW Coefficient of Variation 14.1 % (11.5-14.5); RDW Standard Deviation 46.5 fL (36.4-46.3); Red Blood Count 3.01 M/uL (4.2-5.4); White Blood Count 4.99 K/uL (4.8-10.8)
[2019-08-14 08:04] LABS: Albumin Level 2.2 gm/dl (3.4-5.0); BUN Creatinine Ratio 12.7 (10-20); Calcium 7.1 mg/dl (8.5-10.1); Creatinine Clr Calc Pharmacy 30.7 ml/min; Est GFR (African American) 48.6; Est GFR (Non-African American) 41.9; Magnesium 1.6 mg/dl (1.8-2.4); Potassium 3.4 mmol/L (3.5-5.1)
[2019-08-14 08:36] LABS: Albumin Globulin Ratio 0.7 (0.9-2); Bilirubin,Total 0.2 mg/dl (0.2-1); Globulin 3.1 gm/dl (2.5-4.0); Total Protein 5.3 gm/dl (6.4-8.2)
[2019-08-14] MEDS ORDERED: POTASSIUM PHOS 3 MMOL/1 ML INFUSION IV STA (08:45)
[2019-08-14] MEDS ORDERED: cefTRIAXone SODIUM 1,000 MG in DEXTROSE 5% 50 ML IV STA (08:47)
[2019-08-14] MEDS ORDERED: POTASSIUM PHOSPHATE 30 MMOL in SODIUM CHLORIDE 0.9% 500 ML IV ONE (09:15)
[2019-08-14] MEDS: MAGNESIUM SULFATE / D5W 1 GM/100 ML BAG IV SCH ×2 (10:03→10:59)
[2019-08-14] MEDS: ACETAMINOPHEN 1,000 MG/100 ML VIAL IV PRN (10:04)
[2019-08-14] MEDS ORDERED: Nursing to Pharmacy Communication ONE (10:20)
--- NOTE | 2019-08-14 12:06 | Hospitalist Progress Note ---
Date of Service August 14, 2019 Assessment & Plan (1) Vomiting and diarrhea: Has been ongoing for some time No intestinal obstruction Likely due to cancer with metastasis Clinically better since admission Lot better today Will start clears orally and nutritional supplement Electrolyte imbalance Hypokalemia, hypomagnesemia and hyponatremia and possible hypocalcemia Has been getting replacement We will monitor (2) Hypoglycemia: Not been eating or drinking at home Hypoglycemia secondary to poor nutrition and again contributed by metastatic disease Has been on D5 infusion and maintaining blood sugar Will advise more oral intake of food Blood sugar has been stable (3) Hypotension: Secondary to infection seems to be UTI Again complicated by dehydration Intravenous fluid to maintain blood pressure Blood pressure remains in the lower side of normal (4) UTI (urinary tract infection): UA examination is suggestive of UTI Has been started him on intravenous cefepime Urine is growing E. coli and which is pansensitive We will discontinue cefepime and start ceftriaxone (5) Hematuria: Has thickened gallbladder wall with mild hydronephrosis on either side Has bladder incontinence secondary to paraplegia May need to have urology evaluation if hematuria persists (6) DIMAS (acute kidney injury): -admit to tele -patient presenting from home with vomiting, diarrhea, and lethargy -in the ED, patient found to be hypotensive with systolic BPs in the 70s and hypoglycemic with blood sugar 34 -BP improved after IVF bolus and blood sugar improved after D50 and D5W infusion -Straight cath urine was very concentrated with visible blood; UA suggesting UTI -Given hypotension and reported fever at home yesterday, patient may be septic however currently afebrile, no leukocytosis, lactic acid normal -will cover broadly with IV Vanco and IV cefepime, adjust per culture results -Urine and blood cultures obtained-pending for now -Patient had renal ultrasound 03/2019 showing mild right hydroureteronephrosis and polypoid anterior bladder wall thickening. 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 Clay Mariee -Currently not receiving treatment -It appears as though the patient has had a steady decline over the past several months. While request the patient remain a full code, he was agreeable to palliative care evaluation (10) Hypothyroidism: -Continue home dose of Synthroid for now, check TSH and T4 if indicated (11) DVT prophylaxis: -SQ heparin Discussed with the in detail Overall prognosis remains poor Palliative care consulted Discussed in detail with the Subjective 08/13/2019 Patient is seen and examined in telemetry unit in presence of the She is a 59-year-old female significant past medical history including bilateral breast cancer with metastasis to bone and brain and spinal cord was admitted yesterday with nausea, vomiting and diarrhea, hypoglycemia and hypotension Remains stable but generally very weak and lethargic Complains generalized pain but nausea and vomiting seem to be improving 08/14/2019 Patient is seen and examined in telemetry unit in presence of the She feels a lot better today but remains extremely lethargic Complains some back pain which is improving with intravenous Tylenol Review of Systems Constitutional: + body aches, + fatigue, + weakness, + anorexia and + weight loss Gastrointestinal: + abdominal pain and + fecal incontinence Musculoskeletal: No acute arthritis Physical Exam Physical Exam: Lying in bed with some pain at the back but no shortness of breath Constitutional: + ill appearing, + thin and + cachectic; no acute distress Eyes: PERRL, conjunctivae normal, anicteric sclerae ENMT: external ear and nose normal, oropharynx normal Neck: trachea midline, no thyromegaly Respiratory: normal respiratory effort; no respiratory distress Auscultation: + diminished lung sounds Cardiovascular: Rate/Rhythm: regular rate and regular rhythm Heart Sounds: no murmur Gastrointestinal (Abdomen): Inspection/Auscultation: abdomen normal to inspection and normal bowel sounds Musculoskeletal: Chronic back pain status post back surgery and is complicated by metastatic disease Neurologic: Remains extremely lethargic Results & Data Vital Signs (Past 12 Hours) Vital Signs Temp Pulse Resp BP Pulse Ox 08/14/19 06:59 36.3 C L 75 16 108/66 99 Laboratory Results Short CBC 08/14/19 Range/Units 07:28 WBC 4.99 (4.8-10.8) K/uL Hgb 8.9 L (12.0-16.0) g/dL Hct 26.9 L (37-47) % Plt Count 185 (130-400) K/uL BMP 08/14/19 07:28 Sodium 144 Potassium 3.4 L Chloride 124 H Carbon Dioxide 15 L BUN 17 Creatinine 1.36 H D Glucose 112 H Calcium 7.1 L Liver Function 08/14/19 Range/Units 07:28 Total Bilirubin 0.2 D (0.2-1) mg/dl AST 32 (15-37) U/L ALT 9 L (12-78) U/L Alkaline Phosphatase 35 L (45-117) U/L Albumin 2.2 L (3.4-5.0) gm/dl
[2019-08-14] MEDS: ACETAMINOPHEN 1,000 MG/100 ML VIAL IV SCH (17:32)
[2019-08-15] MEDS: ACETAMINOPHEN 1,000 MG/100 ML VIAL IV SCH ×3 (01:04→17:03)
[2019-08-15] MEDS: D5W AND NSS 1,000 ML IV SCH ×4 (01:11→23:41)
[2019-08-15] MEDS: HEPARIN SOD 5,000 UNIT/0.5 ML VIAL SQ SCH ×3 (05:58→21:43)
[2019-08-15] MEDS: LEVOTHYROXINE SODIUM 25 MCG TABLET PO SCH (05:58)
[2019-08-15 06:15] LABS: Basophils # (auto) 0.04 K/uL (0-0.2); Basophils % (auto) 0.7 %; Eosinophils # (auto) 0.71 K/uL (0-0.5); Eosinophils % (auto) 13.1 %; Hematocrit (blood only) 27.7 % (37-47); Hemoglobin 9.4 g/dL (12.0-16.0); Lymphocytes % (auto) 7.4 %; Mean Corpuscular Hemoglobin 29.7 pg (25-34); Mean Corpuscular Hgb Conc 33.9 g/dL (32-36); Mean Corpuscular Volume 87.4 fL (80-100); Mean Platelet Volume 10.4 fL (7.4-10.4); Monocytes # (auto) 0.52 K/uL (0.11-0.59); Monocytes % (auto) 9.6 %; Neutrophils # (auto) 3.74 K/uL (1.4-6.5); Neutrophils % (auto) 69.2 %; Platelet Count 202 K/uL (130-400); RDW Coefficient of Variation 14.1 % (11.5-14.5); RDW Standard Deviation 45.1 fL (36.4-46.3); Red Blood Count 3.17 M/uL (4.2-5.4); White Blood Count 5.41 K/uL (4.8-10.8)
[2019-08-15 06:37] LABS: Albumin Level 2.1 gm/dl (3.4-5.0); BUN Creatinine Ratio 10.1 (10-20); Calcium 6.9 mg/dl (8.5-10.1); Creatinine Clr Calc Pharmacy 36.6 ml/min; Est GFR (African American) 58.9; Est GFR (Non-African American) 50.8; Magnesium 2.1 mg/dl (1.8-2.4); Potassium 3.2 mmol/L (3.5-5.1)
[2019-08-15 06:44] LABS: Albumin Globulin Ratio 0.7 (0.9-2); Bilirubin,Total 0.2 mg/dl (0.2-1); Globulin 3.2 gm/dl (2.5-4.0); Total Protein 5.3 gm/dl (6.4-8.2)
[2019-08-15] MEDS ORDERED: POTASSIUM PHOS 3 MMOL/1 ML INFUSION IV STA (07:54)
[2019-08-15] MEDS ORDERED: CALCIUM CHLORIDE 10% 1,000 MG in SODIUM CHLORIDE 0.9% 50 ML IV STA (07:55)
[2019-08-15] MEDS ORDERED: POTASSIUM PHOSPHATE 30 MMOL in SODIUM CHLORIDE 0.9% 500 ML IV ONE (08:30)
[2019-08-15] MEDS: cefTRIAXone SODIUM 1,000 MG in DEXTROSE 5% 50 ML IV SCH (09:42)
[2019-08-15] MEDS: ONDANSETRON INJ 2 MG/ML 2 ML VIAL IV SCH ×2 (12:46→17:52)
--- NOTE | 2019-08-15 15:12 | Palliative Care Consultation ---
Date of Consultation August 15, 2019 Assessment & Plan (1) Goals of care, counseling/discussion: -59 year old female patient with PMH stage IV breast cancer with mets to brain, skull and spinal cord, spinal cord compression from metastatic lesion s/p XRT in March 2019, presented with nausea and vomiting. Patient was dehydrated with an elevated creatinine upon arrival-- creatinine has since returned to normal with IVF. Patient was diagnosed with breast cancer in 2015, diagnosed with spinal mets in 2015, diagnosed with brain mets in 2018. She is under the care of Dr. Clay Mariee at [facility]/onc. Uncertain of further treatment plan. Patient is essentially a paraplegic from this spinal lesion. She has a low albumin, she is cachectic and remains in position during this hospital stay. Her cognition is poor and is she is dependent for all care. Prognosis seems poor. Palliative care is consulted to discuss goals of care. -Met with patient in room 275. She is thin and cachectic. No distress. She is in position. Was awake and alert, but did not verbally respond to me at all. Did make eye contact and track with eyes. NO family at bedside. -Attempted to call patient's Charles several times-- left voicemail. -Dr. Taylor called Dr. Mariee this morning to discuss patient's case. He states that there is no further treatment or surgery planned for the spinal lesion. He did state that the plan was to do further chemotherapy after their next outpatient appointment depending on how patient was doing. Dr. Mariee did note that this paraplegia is her norm, but he did not state what her normal mental status is-- need to find out from . -Given patient's poor performance status, poor mental status, low albumin, cachectic and debilitated state, the efficacy/goal of further chemotherapy is uncertain. Need to engage with patient's to discuss what his goals are. Given the patient's condition and stage IV breast cancer, she would certainly be a hospice candidate at this time. 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 -Again, left voicemail for patient's , awaiting call back. We will follow. -PPS 30%. (2) Vomiting and diarrhea: (3) UTI (urinary tract infection): Hematuria presence: with hematuria Urinary tract infection type: site unspecified Qualified Code(s): N39.0 - Urinary tract infection, site not specified; R31.9 - Hematuria, unspecified (4) Breast cancer, stage 4: (5) Metastasis to bone: (6) Metastasis to brain: Supervising Physician Co-Signing Physician Notes Chart reviewed, patient seen and examined. No family at bedside. Collaborated with GRACE Gold PE: Patient did turn to voice, eyes open, did not attempt to respond verbally HEENT: Both eyes crusted, dry mucous membranes Respirations: Unlabored CV: Regular rate Abdomen: Not distended Neuro: Nonverbal, did not appear to understand simple questions. Agree with above note, assessment and plan as per GARCE Gold. Will continue to try to contact patient's regarding goals of care. History of Present Illness Attending Physician: Onel Shultz MD History of Present Illness This 59 year old female patient with PMH stage IV breast cancer with mets to brain, skull and spinal cord, spinal cord compression from metastatic lesion s/p XRT in March 2019, presented with nausea and vomiting. Patient was dehydrated with an elevated creatinine upon arrival-- creatinine has since returned to normal with IVF. Patient was diagnosed with breast cancer in 2015, diagnosed with spinal mets in 2015, diagnosed with brain mets in 2018. She is under the care of Dr. Clay Mariee at [facility]/onc. Uncertain of further treatment plan. Patient is essentially a paraplegic from this spinal lesion. She has a low albumin, she is cachectic and remains in position during this hospital stay. Her cognition is poor and is she is dependent for all care. Prognosis seems poor. Palliative care is consulted to discuss goals of care. Thank you kindly for this consult. Palliative care team will follow as needed. Allergies Allergy/AdvReac Type Severity Reaction Status Date / Time Penicillins Allergy Unknown Verified 04/09/19 12:18 Sulfa (Sulfonamide Allergy Unknown Verified 04/09/19 12:18 Antibiotics) gladolinium Allergy Severe Could not Uncoded 04/09/19 15:32 talk - very disoriented Home Medications Home Medications Medication Instructions Recorded Confirmed Type levothyroxine 62.5 mcg PO QAM 03/19/19 08/12/19 History loratadine-pseudoephedrine 1 tab PO DIRECTED PRN 03/19/19 08/12/19 History [Claritin-D 24 Hour] ondansetron HCl 8 mg PO DIRECTED PRN 03/19/19 08/12/19 History Patient History Medical History (Updated 08/15/19 @ 15:04 by GRACE Gongora) Breast cancer, stage 4 (Chronic 01/31/15) "DIAGNOSIS: 1. Left breast, invasive lobular carcinoma, grade 2, ER positive, VT weakly positive, Her2 negative, [id number], stage IV with metastatic disease to bone 2. Right breast, invasive lobular carcinoma, grade 2, ER positive, VT negative, Her2 negative, [id number], stage IV 3. Diplopia-MRI revealing left thalamus lesion suspicious for metastasis. Bony metastasis of the calvarium. Left medial rectus muscle soft tissue mass. 4. Bone metastasis to T12 TREATMENT: 1. Neoadjuvant chemotherapy - 11 cycles - paclitaxel (Dr. Clay Mariee) 2. Bilateral mastectomy (Left - ALND, Right - SLN) - 08/21/2015 (Dr. Quyen Franks) 3. tx with Arimidex 4. Status post completion of radiation therapy the chest wall, supraclavicular area, and axilla completed 12/03/2015 5. Status post completion of radiation therapy to the left orbit October 09, 2017. She received 3375 cGy 6. Status post completion of radiation therapy to the brain utilizing SBRT completed October 16, 2017. She received 1800 cGy 7. Status post completion of radiation therapy to the thoracic/lumbar spine completed December 23, 2017. She received 3000 cGy." 8. 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 Beliefs That Will Affect Care: None marital status: Current Living Situation: Spouse current occupational status: retired Other Information That Helps Us Care for You: No Feels Safe at Home: Yes Safety Concerns: Feels Safe At This Time Smoking Status: Never smoker Second Hand Exposure: No ; Hx Alcohol Use: No Hx Substance Use: No Review of Systems Review of Systems: Unobtainable due to cognitive status Physical Exam Constitutional: + ill appearing, + thin and + cachectic ENMT: external ear and nose normal, oropharynx normal Respiratory: normal respiratory effort; no respiratory distress Auscultation: + diminished lung sounds Cardiovascular: Rate/Rhythm: regular rate and regular rhythm Heart Sounds: no murmur Gastrointestinal (Abdomen): Inspection/Auscultation: normal bowel sounds Neurologic: awake; + does not move all extremities (moves both arms, did not see her moving legs.) Speech / Cognition: + abnormal speech (nonverbal) Results & Data Vital Signs (Past 12 Hours) Vital Signs Temp Pulse Pulse Resp BP Pulse Ox 08/15/19 10:48 36.1 C L 87 18 135/88 90 08/15/19 09:38 78 08/15/19 07:07 36.5 C 79 18 101/70 100 Coding Level of Care Code 46694 Inpt Consult Level 2 Diagnoses Goals of care, counseling/discussion Z71.89 Vomiting and diarrhea R11.10; R19.7 UTI (urinary tract infection) N39.0; R31.9 Hematuria presence: with hematuria Urinary tract infection type: site unspecified Breast cancer, stage 4 C50.919 Metastasis to bone C79.51 Metastasis to brain C79.31 Time Spent (min) 50 Time Spent Midlevel 50 minutes with >50% of the time spent at bedside with patient and multiple providers discussing patient's case and goals of therapy.
--- NOTE | 2019-08-15 17:01 | Hospitalist Progress Note ---
Date of Service August 15, 2019 Assessment & Plan (1) Vomiting and diarrhea: Has been ongoing for some time No intestinal obstruction Likely due to cancer with metastasis Clinically better since admission Lot better today Will start clears orally and nutritional supplement Electrolyte imbalance Hypokalemia, hypomagnesemia and hyponatremia and possible hypocalcemia Has been getting replacement We will monitor Supplementation was given for calcium, phosphorus, magnesium and potassium We will monitor electrolytes (2) Hypoglycemia: Not been eating or drinking at home Hypoglycemia secondary to poor nutrition and again contributed by metastatic disease Has been on D5 infusion and maintaining blood sugar Will advise more oral intake of food Blood sugar has been stable Clinically little bit better to start some oral feeding (3) Hypotension: Secondary to infection seems to be UTI Again complicated by dehydration Intravenous fluid to maintain blood pressure Blood pressure remains in the lower side of normal (4) UTI (urinary tract infection): UA examination is suggestive of UTI Has been started him on intravenous cefepime Urine is growing E. coli and which is pansensitive We will discontinue cefepime and start ceftriaxone (5) Hematuria: Has thickened gallbladder wall with mild hydronephrosis on either side Has bladder incontinence secondary to paraplegia May need to have urology evaluation if hematuria persists (6) DIMAS (acute kidney injury): -admit to tele -patient presenting from home with vomiting, diarrhea, and lethargy -in the ED, patient found to be hypotensive with systolic BPs in the 70s and hypoglycemic with blood sugar 34 -BP improved after IVF bolus and blood sugar improved after D50 and D5W infusion -Straight cath urine was very concentrated with visible blood; UA suggesting UTI -Given hypotension and reported fever at home yesterday, patient may be septic however currently afebrile, no leukocytosis, lactic acid normal -will cover broadly with IV Vanco and IV cefepime, adjust per culture results -Urine and blood cultures obtained-pending for now -Patient had renal ultrasound 03/2019 showing mild right hydroureteronephrosis and polypoid anterior bladder wall thickening. Underlying neoplasm is not excluded; patient has not followed up with urology regarding this; will obtain repeat renal ultrasound -Repeat ultrasound did show severe bladder wall thickening and mild bilateral hydronephrosis -Likely conservative management but if hematuria persist will ask for urology evaluation -Creatinine has been improving and it is 1.36 on 08/14/2019 Creatinine has been normalized (7) Breast cancer, stage 4: Has had chemotherapy in the past Not a candidate for continued chemo Seems to have progressive disease Palliative care consulted for further guidance of management (8) 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 Clay Mariee -Currently not receiving treatment -It appears as though the patient has had a steady decline over the past several months. While request the patient remain a full code, he was agreeable to palliative care evaluation (10) Hypothyroidism: -Continue home dose of Synthroid for now, check TSH and T4 if indicated (11) DVT prophylaxis: -SQ heparin Discussed with the in detail Overall prognosis remains poor Palliative care consulted Discussed in detail with the Subjective 08/13/2019 Patient is seen and examined in telemetry unit in presence of the She is a 59-year-old female significant past medical history including bilateral breast cancer with metastasis to bone and brain and spinal cord was admitted yesterday with nausea, vomiting and diarrhea, hypoglycemia and hypotension Remains stable but generally very weak and lethargic Complains generalized pain but nausea and vomiting seem to be improving 08/14/2019 Patient is seen and examined in telemetry unit in presence of the She feels a lot better today but remains extremely lethargic Complains some back pain which is improving with intravenous Tylenol 08/15/2019 The patient was seen and examined in presence of her The thinks that patient is having lots of pain with distress at times Does not have any acute shortness of breath Remains extremely weak and lethargic Review of Systems Constitutional: + body aches, + fatigue, + weakness, + anorexia and + weight loss Gastrointestinal: + abdominal pain and + fecal incontinence Musculoskeletal: No acute arthritis Physical Exam Physical Exam: Lying in bed with minimal discomfort Constitutional: + ill appearing, + thin and + cachectic; no acute distress Eyes: PERRL, conjunctivae normal, anicteric sclerae ENMT: external ear and nose normal, oropharynx normal Neck: trachea midline, no thyromegaly Respiratory: normal respiratory effort; no respiratory distress Auscultation: + diminished lung sounds Cardiovascular: Rate/Rhythm: regular rate and regular rhythm Heart Sounds: no murmur Gastrointestinal (Abdomen): Inspection/Auscultation: abdomen normal to inspection and normal bowel sounds Musculoskeletal: Complains pain of moving any joints Neurologic: Not been communicating well Lymphatic: no cervical or axillary lymphadenopathy Results & Data Vital Signs (Past 12 Hours) Vital Signs Temp Pulse Pulse Resp BP Pulse Ox 08/15/19 15:57 36.4 C L 83 19 112/87 98 08/15/19 10:48 36.1 C L 87 18 135/88 90 08/15/19 09:38 78 08/15/19 07:07 36.5 C 79 18 101/70 100 Laboratory Results Short CBC 08/15/19 Range/Units 05:40 WBC 5.41 (4.8-10.8) K/uL Hgb 9.4 L (12.0-16.0) g/dL Hct 27.7 L (37-47) % Plt Count 202 (130-400) K/uL BMP 08/15/19 05:40 Sodium 147 H Potassium 3.2 L Chloride 126 H Carbon Dioxide 14 L BUN 12 Creatinine 1.16 Glucose 91 Calcium 6.9 L Liver Function 08/15/19 Range/Units 05:40 Total Bilirubin 0.2 (0.2-1) mg/dl AST 29 (15-37) U/L ALT 10 L (12-78) U/L Alkaline Phosphatase 42 L (45-117) U/L Albumin 2.1 L (3.4-5.0) gm/dl Medications Administered Current Inpatient Medications Acetaminophen (Tylenol) 650 mg PO Q4H PRN PRN Reason: Pain or Fever Stop: 09/11/19 15:11 Acetaminophen (Tylenol) 1,000 mg PO Q8H PRN; Protocol PRN Reason: Pain or Fever Stop: 09/11/19 22:36 Dextrose (Dextrose 50%) 25 - 50 ml IV UD PRN; Protocol PRN Reason: Hypoglycemia Protocol Stop: 09/11/19 17:21 Last Admin: 08/12/19 17:45 Dose: 25 ml Documented by: Glucagon (Glucagen) 1 mg SQ UD PRN; Protocol PRN Reason: Hypoglycemia Protocol Stop: 09/11/19 17:21 Glucose (Dex4 Glucose) 4 - 8 tabs PO UD PRN; Protocol PRN Reason: Hypoglycemia Protocol Stop: 09/11/19 17:21 Glucose (Glucose 40%) 15 - 30 gm PO UD PRN; Protocol PRN Reason: Hypoglycemia Protocol Stop: 09/11/19 17:21 Heparin Sodium (Porcine) (Heparin Sodium (Porcine)) 5,000 units SQ Q8 [facility] Stop: 09/11/19 15:59 Last Admin: 08/15/19 13:19 Dose: Not Given Documented by: Heparin Sodium (Porcine) (Heparin Sod 100 Unit/Ml Flush) 5 ml FLUSH PRN PRN PRN Reason: Flush Stop: 09/11/19 23:14 Dextrose/Sodium Chloride (D5w And Nss) 1,000 mls @ 125 mls/hr IV .Q8H [facility] Stop: 09/11/19 15:11 Last Admin: 08/15/19 15:52 Dose: 125 mls/hr Documented by: Acetaminophen (Ofirmev) 1,000 mg in 100 mls @ 400 mls/hr IV Q8H [facility] Stop: 08/17/19 17:59 Last Infusion: 08/15/19 09:32 Dose: Infused Documented by: Potassium Phosphate 30 mmol/ (Sodium Chloride) 510 mls @ 102 mls/hr IV 0830 ONE Stop: 08/15/19 13:29 Last Infusion: 08/15/19 13:25 Dose: Infused Documented by: Ceftriaxone Sodium 1,000 mg/ (Dextrose) 50 mls @ 100 mls/hr IV Q24H [facility] Stop: 08/25/19 09:59 Last Infusion: 08/15/19 10:15 Dose: Infused Documented by: Levothyroxine Sodium (Synthroid) 62.5 mcg PO DAILYBB [facility] Stop: 09/12/19 06:29 Last Admin: 08/15/19 05:58 Dose: Not Given Documented by: Miscellaneous (Carbohydrates For Hypoglycemia) 15 - 30 gm PO UD PRN PRN Reason: Hypoglycemia Protocol Stop: 09/11/19 17:21 Ondansetron HCl (Zofran) 4 mg IV Q6H [facility] Stop: 09/14/19 12:59 Last Admin: 08/15/19 12:46 Dose: 4 mg Documented by:
[2019-08-16] MEDS: ONDANSETRON INJ 2 MG/ML 2 ML VIAL IV SCH ×4 (00:11→19:17)
[2019-08-16] MEDS: ACETAMINOPHEN 1,000 MG/100 ML VIAL IV SCH (01:42)
[2019-08-16] MEDS: LEVOTHYROXINE SODIUM 25 MCG TABLET PO SCH (05:47)
[2019-08-16] MEDS: HEPARIN SOD 5,000 UNIT/0.5 ML VIAL SQ SCH ×3 (05:51→22:02)
[2019-08-16] MEDS: DEXTROSE 50% 50 ML SYRINGE IV PRN ×4 (06:29→23:41)
[2019-08-16 07:03] LABS: Creatinine Clr Calc Pharmacy 38.6 ml/min; Est GFR (African American) 62.8; Est GFR (Non-African American) 54.1
[2019-08-16] MEDS: D5W AND NSS 1,000 ML IV SCH ×2 (07:58→17:33)
[2019-08-16] MEDS ORDERED: Nursing to Pharmacy Communication ONE (08:03)
[2019-08-16] MEDS ORDERED: SODIUM CHLORIDE 0.9% 1000ML 500 ML IV SCH (08:15)
[2019-08-16] MEDS: cefTRIAXone SODIUM 1,000 MG in DEXTROSE 5% 50 ML IV SCH (10:11)
--- NOTE | 2019-08-16 11:07 | Palliative Care Progress Note ---
Date of Service August 16, 2019 Assessment & Plan (1) Goals of care, counseling/discussion: -Patient is more awake today, did say "No," and "I don't know." Unable to have full, meaningful conversation. - Charles at bedside. He is expecting a phone call from Dr. Mariee today. -Continuing supportive care now, but is leaning towards hospice care upon discharge. -Patient will likely need SNF placement. Case management following. -No symptom management needs at this time. Will order oral Tylenol. (2) Vomiting and diarrhea: (3) UTI (urinary tract infection): (4) Breast cancer, stage 4: (5) Metastasis to bone: (6) Metastasis to brain: Subjective Patient is more awake today, but still lethargic. at bedside. Patient denies pain. Review of Systems Review of Systems: Denies pain or discomfort. reports that she vomited this morning Physical Exam Constitutional: + ill appearing, + thin and + cachectic ENMT: external ear and nose normal, oropharynx normal Respiratory: normal respiratory effort; no respiratory distress Auscultation: + diminished lung sounds Cardiovascular: Rate/Rhythm: regular rate and regular rhythm Heart Sounds: no murmur Gastrointestinal (Abdomen): Inspection/Auscultation: normal bowel sounds Neurologic: awake; + does not move all extremities (moves both arms, did not see her moving legs.) Results & Data Vital Signs (Past 12 Hours) Vital Signs Temp Pulse Pulse Resp BP Pulse Ox 08/16/19 10:03 83 83/24 L 100 08/16/19 08:00 77 08/16/19 07:50 58/40 L 08/16/19 07:17 36.5 C 80 18 98 08/16/19 03:01 36.4 C L 79 18 86/68 L 98 08/15/19 23:22 36.4 C L 81 18 83/56 L 98 Supervising Physician Co-Signing Physician Notes Chart reviewed, patient seen and examined Pt's at bedside. Pt able to nod yes or no to simple questions Collaborated with GRACE Gold PE: Patient awake, alert, responded by nodding to questions HEENT: Both eyes crusted Respirations: Unlabored CV: Regular rate Abdomen: Not distended Neuro: Nonverbal, did appear to understand simple questions. Spoke with patient's at length regarding medical decision making. Discussed the ability to treat her choose not to treat certain conditions which would allow her to pass peacefully. Provided active listening and provided support to during discussion of treatment options. Patient's reports that their daughter is due to arrive from [place] tomorrow night. Agree with above note, assessment and plan as per GRACE Gold. PG Care Time/CCT Prolonged Care Time Prolonged Care Time: Yes Total Prolonged Care Time: 40 75 Coding Level of Care Code 16650 Subseq Hosp Care Lvl 3 Diagnoses Goals of care, counseling/discussion Z71.89 Vomiting and diarrhea R11.10; R19.7 UTI (urinary tract infection) N39.0; R31.9 Hematuria presence: with hematuria Urinary tract infection type: site unspecified Breast cancer, stage 4 C50.919 Metastasis to bone C79.51 Metastasis to brain C79.31 Additional Codes Prolonged Care Time - Prolonged Care Time: Yes ([id number]) Time Spent (min) 75 Time Spent Midlevel 25 minutes with >50% of the time spent at bedside with patient and family discussing condition and GOC. Attending Spent 50 minutes in addition to the 25 minutes spent by GRACE Gold for a total of 75 minutes with greater than 50% of the time spent at bedside discussing patient's current condition, prognosis, and treatment options. (1) UTI (urinary tract infection) Hematuria presence: with hematuria Urinary tract infection type: site unspecified Qualified Code(s): N39.0 - Urinary tract infection, site not specified; R31.9 - Hematuria, unspecified
--- NOTE | 2019-08-16 11:26 | Hospitalist Progress Note ---
Date of Service August 16, 2019 Assessment & Plan (1) Vomiting and diarrhea: Has been ongoing for some time No intestinal obstruction Likely due to cancer with metastasis Clinically better since admission Lot better today Will start clears orally and nutritional supplement Remains critical but stable Electrolyte imbalance Hypokalemia, hypomagnesemia and hyponatremia and possible hypocalcemia Has been getting replacement We will monitor Supplementation was given for calcium, phosphorus, magnesium and potassium Will not do any more blood test Active to go for hospice care in a facility (2) Hypoglycemia: Not been eating or drinking at home Hypoglycemia secondary to poor nutrition and again contributed by metastatic disease Has been on D5 infusion and maintaining blood sugar Will advise more oral intake of food Blood sugar has been stable Clinically little bit better to start some oral feeding Trying to eat a little bit (3) Hypotension: Secondary to infection seems to be UTI Again complicated by dehydration Intravenous fluid to maintain blood pressure Blood pressure remains in the lower side of normal Blood pressure remains in the lower side (4) UTI (urinary tract infection): UA examination is suggestive of UTI Has been started him on intravenous cefepime Urine is growing E. coli and which is pansensitive We will discontinue cefepime and start ceftriaxone We will finish the course of intravenous antibiotic with ceftriaxone (5) Hematuria: Has thickened gallbladder wall with mild hydronephrosis on either side Has bladder incontinence secondary to paraplegia May need to have urology evaluation if hematuria persists (6) DIMAS (acute kidney injury): -admit to tele -patient presenting from home with vomiting, diarrhea, and lethargy -in the ED, patient found to be hypotensive with systolic BPs in the 70s and hypoglycemic with blood sugar 34 -BP improved after IVF bolus and blood sugar improved after D50 and D5W infusion -Straight cath urine was very concentrated with visible blood; UA suggesting UTI -Given hypotension and reported fever at home yesterday, patient may be septic however currently afebrile, no leukocytosis, lactic acid normal -will cover broadly with IV Vanco and IV cefepime, adjust per culture results -Urine and blood cultures obtained-pending for now -Patient had renal ultrasound 03/2019 showing mild right hydroureteronephrosis and polypoid anterior bladder wall thickening. Underlying neoplasm is not excluded; patient has not followed up with urology regarding this; will obtain repeat renal ultrasound -Repeat ultrasound did show severe bladder wall thickening and mild bilateral hydronephrosis -Likely conservative management but if hematuria persist will ask for urology evaluation -Creatinine has been improving and it is 1.36 on 08/14/2019 Creatinine has been normalized (7) Breast cancer, stage 4: Has had chemotherapy in the past Not a candidate for continued chemo Seems to have progressive disease Palliative care consulted for further guidance of management Dr. 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 Clay Mariee -Currently not receiving treatment -It appears as though the patient has had a steady decline over the past several months. While request the patient remain a full code, he was agreeable to palliative care evaluation (10) Hypothyroidism: -Continue home dose of Synthroid for now, check TSH and T4 if indicated (11) DVT prophylaxis: -SQ heparin Discussed with the in detail Overall prognosis remains poor Palliative care consulted Discussed in detail with the on 08/16/2019 Subjective 08/13/2019 Patient is seen and examined in telemetry unit in presence of the She is a 59-year-old female significant past medical history including bilateral breast cancer with metastasis to bone and brain and spinal cord was admitted yesterday with nausea, vomiting and diarrhea, hypoglycemia and hypotension Remains stable but generally very weak and lethargic Complains generalized pain but nausea and vomiting seem to be improving 08/14/2019 Patient is seen and examined in telemetry unit in presence of the She feels a lot better today but remains extremely lethargic Complains some back pain which is improving with intravenous Tylenol 08/15/2019 The patient was seen and examined in presence of her The thinks that patient is having lots of pain with distress at times Does not have any acute shortness of breath Remains extremely weak and lethargic 08/16/2019 Patient was seen and examined in medical floor She has been stable as of this morning Only complains of wheezing Denies any pain at rest Review of Systems Constitutional: + body aches, + fatigue, + weakness, + anorexia and + weight loss Gastrointestinal: + fecal incontinence; no abdominal pain Musculoskeletal: No acute arthritis Physical Exam Physical Exam: Lying in bed without any acute distress Constitutional: + ill appearing, + thin and + cachectic; no acute distress Eyes: PERRL, conjunctivae normal, anicteric sclerae ENMT: external ear and nose normal, oropharynx normal Neck: trachea midline, no thyromegaly Respiratory: normal respiratory effort; no respiratory distress Auscultation: lungs clear to auscultation bilaterally and + diminished lung sounds Cardiovascular: Rate/Rhythm: regular rate and regular rhythm Heart Sounds: no murmur Gastrointestinal (Abdomen): Inspection/Auscultation: abdomen normal to inspection and normal bowel sounds Musculoskeletal: Complains of pain with movement of any joints Neurologic: Alert and awake. Less communicative today. Generally very weak and lethargic Lymphatic: no cervical or axillary lymphadenopathy Results & Data Vital Signs (Past 12 Hours) Vital Signs Temp Pulse Pulse Resp BP Pulse Ox 08/16/19 11:12 36.5 C 80 17 97 08/16/19 10:03 83 83/24 L 100 08/16/19 08:00 77 08/16/19 07:50 58/40 L 08/16/19 07:17 36.5 C 80 18 98 08/16/19 03:01 36.4 C L 79 18 86/68 L 98 08/15/19 23:22 36.4 C L 81 18 83/56 L 98 Laboratory Results BMP 08/16/19 05:58 Creatinine 1.10 Medications Administered Current Inpatient Medications Acetaminophen (Tylenol) 650 mg PO Q4H PRN PRN Reason: Pain or Fever Stop: 09/11/19 15:11 Acetaminophen (Tylenol) 1,000 mg PO Q8H PRN; Protocol PRN Reason: Pain or Fever Stop: 09/11/19 22:36 Dextrose (Dextrose 50%) 25 - 50 ml IV UD PRN; Protocol PRN Reason: Hypoglycemia Protocol Stop: 09/11/19 17:21 Last Admin: 08/16/19 06:29 Dose: 25 ml Documented by: Glucagon (Glucagen) 1 mg SQ UD PRN; Protocol PRN Reason: Hypoglycemia Protocol Stop: 09/11/19 17:21 Glucose (Dex4 Glucose) 4 - 8 tabs PO UD PRN; Protocol PRN Reason: Hypoglycemia Protocol Stop: 09/11/19 17:21 Glucose (Glucose 40%) 15 - 30 gm PO UD PRN; Protocol PRN Reason: Hypoglycemia Protocol Stop: 09/11/19 17:21 Heparin Sodium (Porcine) (Heparin Sodium (Porcine)) 5,000 units SQ Q8 [facility] Stop: 09/11/19 15:59 Last Admin: 08/16/19 05:51 Dose: Not Given Documented by: Heparin Sodium (Porcine) (Heparin Sod 100 Unit/Ml Flush) 5 ml FLUSH PRN PRN PRN Reason: Flush Stop: 09/11/19 23:14 Dextrose/Sodium Chloride (D5w And Nss) 1,000 mls @ 125 mls/hr IV .Q8H [facility] Stop: 09/11/19 15:11 Last Admin: 08/16/19 07:58 Dose: 125 mls/hr Documented by: Ceftriaxone Sodium 1,000 mg/ (Dextrose) 50 mls @ 100 mls/hr IV Q24H [facility] Stop: 08/25/19 09:59 Last Infusion: 08/16/19 10:45 Dose: Infused Documented by: Levothyroxine Sodium (Synthroid) 62.5 mcg PO DAILYBB [facility] Stop: 09/12/19 06:29 Last Admin: 08/16/19 05:47 Dose: 62.5 mcg Documented by: Miscellaneous (Carbohydrates For Hypoglycemia) 15 - 30 gm PO UD PRN PRN Reason: Hypoglycemia Protocol Stop: 09/11/19 17:21 Ondansetron HCl (Zofran) 4 mg IV Q6H [facility] Stop: 09/14/19 12:59 Last Admin: 08/16/19 07:54 Dose: 4 mg Documented by:
[2019-08-16] MEDS ORDERED: MoRPHine SULFATE 5 MG/0.25 ML UDP PO PRN (15:01)
[2019-08-16] MEDS ORDERED: ACETAMINOPHEN 1,000 MG/100 ML VIAL IV PRN (16:30)
[2019-08-17] MEDS: ONDANSETRON INJ 2 MG/ML 2 ML VIAL IV SCH ×4 (01:11→18:48)
[2019-08-17] MEDS: DEXTROSE 50% 50 ML SYRINGE IV PRN ×4 (03:59→16:38)
[2019-08-17 06:15] LABS: Basophils # (auto) 0.07 K/uL (0-0.2); Eosinophils # (auto) 1.07 K/uL (0-0.5); Eosinophils % (auto) 15.9 %; Hematocrit (blood only) 30.6 % (37-47); Hemoglobin 10.3 g/dL (12.0-16.0); Lymphocytes # (auto) 0.75 K/uL (1.2-3.4); Lymphocytes % (auto) 11.1 %; Mean Corpuscular Hemoglobin 29.3 pg (25-34); Mean Corpuscular Hgb Conc 33.7 g/dL (32-36); Mean Corpuscular Volume 87.2 fL (80-100); Mean Platelet Volume 10.6 fL (7.4-10.4); Monocytes # (auto) 0.67 K/uL (0.11-0.59); Monocytes % (auto) 9.9 %; Neutrophils # (auto) 4.18 K/uL (1.4-6.5); Neutrophils % (auto) 62.1 %; Platelet Count 274 K/uL (130-400); RDW Coefficient of Variation 14.9 % (11.5-14.5); Red Blood Count 3.51 M/uL (4.2-5.4); White Blood Count 6.74 K/uL (4.8-10.8)
[2019-08-17] MEDS: HEPARIN SOD 5,000 UNIT/0.5 ML VIAL SQ SCH ×3 (06:17→21:26)
[2019-08-17] MEDS: LEVOTHYROXINE SODIUM 25 MCG TABLET PO SCH (06:18)
[2019-08-17 06:42] LABS: Albumin Level 1.9 gm/dl (3.4-5.0); BUN Creatinine Ratio 5.9 (10-20); Creatinine Clr Calc Pharmacy 33.4 ml/min; Est GFR (African American) 52.7; Est GFR (Non-African American) 45.5; Magnesium 1.7 mg/dl (1.8-2.4); Potassium 3.6 mmol/L (3.5-5.1)
[2019-08-17 06:45] LABS: Albumin Globulin Ratio 0.6 (0.9-2); Bilirubin,Total 0.2 mg/dl (0.2-1); Globulin 3.4 gm/dl (2.5-4.0); Phosphorus 2.1 mg/dl (2.5-4.9); Total Protein 5.3 gm/dl (6.4-8.2)
[2019-08-17] MEDS: D5W AND NSS 1,000 ML IV SCH (08:02)
[2019-08-17] MEDS: cefTRIAXone SODIUM 1,000 MG in DEXTROSE 5% 50 ML IV SCH (09:07)
[2019-08-17] MEDS ORDERED: ACETAMINOPHEN SOL 650 MG/20.3 ML UDC PO PRN (10:58)
[2019-08-17] MEDS ORDERED: MoRPHine SULFATE 5 MG/0.25 ML UDP PO PRN (11:01)
--- NOTE | 2019-08-17 11:24 | Palliative Care Progress Note ---
Date of Service August 17, 2019 Assessment & Plan (1) Goals of care, counseling/discussion: -Patient appears somewhat restless in the bed, but no facial grimacing, moaning or other signs of pain/distress. -Patient's and another family member at bedside. -patient's Charles voiced a lot of anger and frustration about the care patient is receiving here. He is upset that the IV Tylenol was discontinued and she has not received any Tylenol since then (as it is ordered PRN). Patient also has Roxanol 2.5mg ordered PRN, has not received a dose. He stated that she was extremely uncomfortable last evening and did not receive any pain medication-- he could not tell me whether or not he asked the nurse for it. He also stated that patient is not being fed by hospital staff and "if she's sleeping, they just walk away." Charles feels like he needs to be here for every meal in order for patient to be fed. -I listened and provided support. We discussed scheduling the PO Tylenol TID and a PRN dose throughout the night if needed. I also addressed the concerns about feeding with the charge nurse. Charles did eventually calm down and is feeling better about the plan. -Ordered Tylenol 650mg PO TID scheduled, and 1 dose of 650mg overnight PRN. -If Tylenol ineffective, can use Roxanol 2.5mg PO/SL Q6h PRN pain. -Discussed plan after hospitalization. Charles would like to take patient home on hospice. We discussed this at length. I did make him aware that hospice care itself is covered by insurance, but any additional caregivers or SNF care are not covered by insurance. -Updated case resource manager. She will provide hospice and private duty caregiver lists to Charles. -Patient's daughter from [place] is flying in [facility]. Patient's needs as much support as possible. He is stressed and overwhelmed, which he admitted to. -We will continue to follow along. (2) Vomiting and diarrhea: (3) UTI (urinary tract infection): (4) Breast cancer, stage 4: (5) Metastasis to bone: (6) Metastasis to brain: Subjective Patient is awake today. No distress but was somewhat restless in the bed. and [id number] at bedside. Patient's is very upset that she did not receive pain medication last evening or today. he is also upset that he feels that patient is not being fed by the hospital staff and he feels like he has to be here for every meal in order for patient to get nutrition. Review of Systems Review of Systems: Unobtainable due to cognitive status Physical Exam Constitutional: + ill appearing, + thin and + cachectic ENMT: external ear and nose normal, oropharynx normal Respiratory: normal respiratory effort; no respiratory distress Auscultation: + diminished lung sounds Cardiovascular: Rate/Rhythm: regular rate and regular rhythm Heart Sounds: no murmur Neurologic: awake; + does not move all extremities (moves both arms, did not see her moving legs.) Results & Data Vital Signs (Past 12 Hours) Vital Signs Temp Pulse Pulse Resp BP Pulse Ox 08/17/19 09:36 89 08/17/19 07:33 36.3 C L 92 H 18 100 08/17/19 03:14 36.3 C L 89 17 72/52 L 99 08/17/19 00:18 87 08/16/19 23:27 36.4 C L 92 H 17 98 Coding Level of Care Code 10806 Subseq Hosp Care Lvl 3 Diagnoses Goals of care, counseling/discussion Z71.89 Vomiting and diarrhea R11.10; R19.7 UTI (urinary tract infection) N39.0; R31.9 Hematuria presence: with hematuria Urinary tract infection type: site unspecified Breast cancer, stage 4 C50.919 Metastasis to bone C79.51 Metastasis to brain C79.31 Time Spent (min) 45 Time Spent Midlevel 45 minutes with >50% of the time spent at bedside with patient and family discussing condition and GOC. (1) UTI (urinary tract infection) Hematuria presence: with hematuria Urinary tract infection type: site unspecified Qualified Code(s): N39.0 - Urinary tract infection, site not specified; R31.9 - Hematuria, unspecified
[2019-08-17] MEDS ORDERED: ACETAMINOPHEN 325 MG TAB PO SCH (14:00)
--- NOTE | 2019-08-17 17:32 | Electrocardiogram Report ---
Test Reason : Blood Pressure : / mmHG Vent. Rate : 084 BPM Atrial Rate : 084 BPM P-R Int : 146 ms QRS Dur : 074 ms QT Int : 440 ms P-R-T Axes : 087 005 -86 degrees QTc Int : 519 ms Normal sinus rhythm Low voltage QRS T wave abnormality, consider anterior ischemia Prolonged QT Abnormal ECG When compared with ECG of 12-AUG-2019 11:20, QRS voltage has decreased ST no longer depressed in Lateral leads QT has lengthened Confirmed by Carlo Hernandez ([id number]) on 08/17/2019 5:31:53 PM Referred By: REFERRED SELF Confirmed By:Abdelrahman Hernandez
--- NOTE | 2019-08-17 17:36 | Hospitalist Progress Note ---
Date of Service August 17, 2019 Assessment & Plan (1) Vomiting and diarrhea: Has been ongoing for sometimes No intestinal obstruction Likely due to cancer with metastasis Remains critical but stable Start on D5W since BS low and clear liquid if able to tolerate Electrolyte imbalance Hypokalemia, hypomagnesemia and hyponatremia and possible hypocalcemia Has been getting replacement Supplementation was given for calcium, phosphorus, magnesium and potassium Plan to go for hospice care in a facility (2) Hypoglycemia: Not been eating or drinking at home Hypoglycemia secondary to poor nutrition and again contributed by metastatic disease Has been on D5 infusion and maintaining blood sugar Will advise more oral intake of food Continue D5W (3) Hypotension: Secondary to infection seems to be UTI and dehydration Intravenous fluid to maintain blood pressure Blood pressure remains in the lower side of normal Blood pressure remains in the lower side (4) UTI (urinary tract infection): UA examination is suggestive of UTI Has been started him on intravenous cefepime Urine is growing E. coli and which is pansensitive We will discontinue cefepime and start ceftriaxone We will finish the course of intravenous antibiotic with ceftriaxone (5) Hematuria: Has thickened gallbladder wall with mild hydronephrosis on either side Has bladder incontinence secondary to paraplegia May need to have urology evaluation if hematuria persists (6) DIMAS (acute kidney injury): -admit to tele -patient presenting from home with vomiting, diarrhea, and lethargy -in the ED, patient found to be hypotensive with systolic BPs in the 70s and hypoglycemic with blood sugar 34 -BP improved after IVF bolus and blood sugar improved after D50 and D5W infusion -Straight cath urine was very concentrated with visible blood; UA suggesting UTI -Given hypotension and reported fever at home yesterday, patient may be septic however currently afebrile, no leukocytosis, lactic acid normal -will cover broadly with IV Vanco and IV cefepime, adjust per culture results -Urine and blood cultures obtained-pending for now -Patient had renal ultrasound 03/2019 showing mild right hydroureteronephrosis and polypoid anterior bladder wall thickening. Underlying neoplasm is not excluded; patient has not followed up with urology regarding this; will obtain repeat renal ultrasound -Repeat ultrasound did show severe bladder wall thickening and mild bilateral hydronephrosis -Likely conservative management but if hematuria persist will ask for urology evaluation -Creatinine has been improving and it is 1.36 on 08/14/2019 Creatinine has been normalized (7) Breast cancer, stage 4: Has had chemotherapy in the past Not a candidate for continued chemo Seems to have progressive disease Palliative care consulted for further guidance of management Dr. 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 Clay Mariee -Currently not receiving treatment -It appears as though the patient has had a steady decline over the past several months. While request the patient remain a full code, he was agreeable to palliative care evaluation (10) Hypothyroidism: -Continue home dose of Synthroid for now, check TSH and T4 if indicated (11) DVT prophylaxis: -SQ heparin Disposition Overall prognosis remains poor Palliative care consulted Plan to transition to home hospice care Subjective Pt was seen and examined Lying in bed comfortable with at bedside She was awake and able to follow minimal commands She feels weak and has been said that she drank carnation milk today would like pain meds to be given around the clock Nurse said that after she received the Roxanol, she was very lethargy She had a brief pause on tele monitor after Roxanol Physical Exam Physical Exam: General- awake and very week Head- atraumatic Eyes- PERRL, EOMI ENT- oropharynx clear Neck- supple, no JVD Lungs- Diminished BS Heart- regular rhythm; no murmur Abdomen- normal bowel sounds, soft, nontender Extremities- no calf tenderness Neuro- alert, oriented x 3; PERRL, EOMI; no facial palsy; no dysarthria Skin- warm & dry Results & Data Vital Signs (Past 12 Hours) Vital Signs Temp Pulse Pulse Pulse Resp BP BP 08/17/19 15:06 37.0 C 106 H 18 89/63 L 08/17/19 14:08 90 81/59 L 08/17/19 12:14 70 20 56/44 L 08/17/19 12:07 97 H 18 L 18 62/44 L 08/17/19 09:36 89 08/17/19 07:33 36.3 C L 92 H 18 Pulse Ox 08/17/19 15:06 93 08/17/19 14:08 08/17/19 12:14 08/17/19 12:07 92 08/17/19 09:36 08/17/19 07:33 100
[2019-08-17] MEDS ORDERED: SODIUM CHLORIDE 0.45 % 1,000 ML IV ONE (19:45)
[2019-08-17] MEDS: D5W AND 1/2NSS 1,000 ML IV SCH (20:07)
[2019-08-18] MEDS: ACETAMINOPHEN SOL 650 MG/20.3 ML UDC PO PRN ×2 (00:09→13:04)
[2019-08-18] MEDS: ONDANSETRON INJ 2 MG/ML 2 ML VIAL IV SCH ×4 (01:06→19:48)
[2019-08-18] MEDS: D5W AND 1/2NSS 1,000 ML IV SCH ×2 (05:50→17:08)
[2019-08-18] MEDS: LEVOTHYROXINE SODIUM 25 MCG TABLET PO SCH (05:51)
[2019-08-18] MEDS: HEPARIN SOD 5,000 UNIT/0.5 ML VIAL SQ SCH ×3 (05:51→21:18)
[2019-08-18] MEDS: cefTRIAXone SODIUM 1,000 MG in DEXTROSE 5% 50 ML IV SCH (10:10)
[2019-08-18] MEDS: ALBUT/IPRATROP 3MG/0.5MG NEB 3 ML VIAL NEB PRN (13:26)
[2019-08-18] MEDS: ACETAMINOPHEN SOL 650 MG/20.3 ML UDC PO SCH ×2 (14:10→19:48)
--- NOTE | 2019-08-18 14:38 | Palliative Care Progress Note ---
Date of Service August 18, 2019 Assessment & Plan (1) Goals of care, counseling/discussion: - Met with and daughter at bedside as well as privately outside the room. Discussed patient's current medical issues including metastatic stage IV breast cancer, hyperglycemia, hyponatremia and poor p.o. intake. struggling with when to transition to comfort/hospice care. -Daughter reported that patient had always wanted to fight the cancer-that is no longer an option as she cannot tolerate any further chemo. They find that patient is most alert and with it early in the morning and plan to return tomorrow morning to speak with the patient regarding her wishes and goals. -Daughter reported that many years ago her mother stated that she wanted to in her home. -Discussed different options of treatment-maintaining patient's blood sugar and sodium are becoming more difficult, patient starting to third space fluids. -Discussed option of returning home with comfort/hospice care. (2) Breast cancer, stage 4: Continue discussions regarding comfort care (3) Metastasis to bone: Schedule Tylenol, avoid opioids if possible per family request (4) Metastasis to brain: (5) Hypoglycemia: Unable to take adequate p.o. to keep blood sugars within normal range. Significant altered mental status with low blood sugars. Subjective Patient seen and examined, she did not participate in conversation at bedside. Patient's at bedside. Patient's daughter, who just arrived from [place] also present at bedside. Patient appears more puffy, continues to require IV fluids for glucose and electrolyte balance, not able to take adequate p.o. and daughter both state that patient would not want a feeding tube. reported he did not feel patient was kept comfortable, was not given PRN Tylenol, is agreeable to having Tylenol scheduled to keep patient comfortable. Patient had been complaining of shoulder pain last evening. Daughter stated that patient is most alert in the morning-she would like to talk with the patient along with patient's to get her input on goals of care. Review of Systems Review of Systems: Unobtainable due to cognitive status Physical Exam Physical Exam: PE: Patient awake, able to nod yes or no to a few simple questions, was receiving an albuterol neb during visit. HEENT: Eyes crusted due to ectropion, hearing within normal limits Respirations: Slightly labored, receiving neb treatment CV: Regular rate Abdomen: Soft, nontender Extremities: Lower extremity paralysis Neuro: Alert, fatigued Results & Data Vital Signs (Past 12 Hours) Vital Signs Temp Pulse Pulse Resp BP BP Pulse Ox 08/18/19 13:26 81 18 100 08/18/19 11:32 96.8 F L 97 H 18 106/70 93 08/18/19 08:00 91 H 08/18/19 07:35 96.8 F L 86 17 74/55 L 85/55 L 98 08/18/19 03:40 97.3 F L 84 18 91/61 L 96 PG Care Time/CCT Total # of Minutes Spent Total Time Spent with Patient: Total time spent 45 minutes with greater than 50% of the time spent with patient and family discussing treatment options and goals of care. Coding Level of Care Code 57284 Subseq Hosp Care Lvl 3 Diagnoses Goals of care, counseling/discussion Z71.89 Breast cancer, stage 4 C50.919 Metastasis to bone C79.51 Metastasis to brain C79.31 Hypoglycemia E16.2 Time Spent (min) 45
--- NOTE | 2019-08-18 18:57 | Hospitalist Progress Note ---
Date of Service August 18, 2019 Assessment & Plan (1) Vomiting and diarrhea: Has been ongoing for sometimes No intestinal obstruction Likely due to cancer with metastasis Remains critical but stable Continue gentle hydration with D5W since BS has been dropping due to poor intake Will continue to try clear liquid diet Electrolyte imbalance Hypokalemia, hypomagnesemia and hyponatremia and possible hypocalcemia Has been getting replacement Supplementation was given for calcium, phosphorus, magnesium and potassium Will check electrolytes (2) Hypoglycemia: Not been eating or drinking at home Hypoglycemia secondary to poor nutrition and again contributed by metastatic disease Has been on D5 infusion and maintaining blood sugar Continue advised pt and family to try take more oral intake of food Continue D5W (3) Hypotension: Secondary to infection seems to be UTI and dehydration Intravenous fluid to maintain blood pressure BP improved Continue monitor closely (4) UTI (urinary tract infection): UA examination is suggestive of UTI Has been started him on intravenous cefepime Urine is growing E. coli and which is pansensitive We will discontinue cefepime and start ceftriaxone We will finish the course of intravenous antibiotic with ceftriaxone (5) Hematuria: Has thickened gallbladder wall with mild hydronephrosis on either side Has bladder incontinence secondary to paraplegia May need to have urology evaluation if hematuria persists Improves (6) DIMAS (acute kidney injury): -admit to tele -patient presenting from home with vomiting, diarrhea, and lethargy -in the ED, patient found to be hypotensive with systolic BPs in the 70s and hypoglycemic with blood sugar 34 -BP improved after IVF bolus and blood sugar improved after D50 and D5W infusion -Straight cath urine was very concentrated with visible blood; UA suggesting UTI -Given hypotension and reported fever at home yesterday, patient may be septic however currently afebrile, no leukocytosis, lactic acid normal -will cover broadly with IV Vanco and IV cefepime, adjust per culture results -Urine and blood cultures obtained-pending for now -Patient had renal ultrasound 03/2019 showing mild right hydroureteronephrosis and polypoid anterior bladder wall thickening. Underlying neoplasm is not excluded; patient has not followed up with urology regarding this; will obtain repeat renal ultrasound -Repeat ultrasound did show severe bladder wall thickening and mild bilateral hydronephrosis -Likely conservative management but if hematuria persist will ask for urology evaluation -Creatinine has been improving and it is 1.36 on 08/14/2019 -Creatinine has been normalized (7) Breast cancer, stage 4: Has had chemotherapy in the past Not a candidate for continued chemo Seems to have progressive disease Palliative care consulted for further guidance of management Dr. 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 Clay Mariee -Currently not receiving treatment -It appears as though the patient has had a steady decline over the past several months. -Poor prognosis -Palliative care on board (10) Hypothyroidism: -Continue home dose of Synthroid (11) DVT prophylaxis: -SQ heparin Disposition Overall prognosis remains poor Palliative care consulted Plan to transition to home hospice care Subjective Pt was seen and examined Lying in bed with no acute distress Pt looks more awake today She said that she is not having any pain now Denies any chest pain, palpitation and SOB Physical Exam Physical Exam: General- awake and very week Head- atraumatic Eyes- PERRL, EOMI ENT- oropharynx clear Neck- supple, no JVD Lungs- Diminished BS Heart- regular rhythm; no murmur Abdomen- normal bowel sounds, soft, nontender Extremities- no calf tenderness Neuro- alert, awake, Follow commands Skin- warm & dry Results & Data ([facility]) Vital Signs (Past 12 Hours) Vital Signs Temp Pulse Pulse Resp BP BP Pulse Ox 08/18/19 16:10 89 08/18/19 15:10 36.1 C L 91 H 21 108/70 97 08/18/19 13:26 81 18 100 08/18/19 11:32 36.0 C L 97 H 18 106/70 93 08/18/19 08:00 91 H 08/18/19 07:35 36.0 C L 86 17 74/55 L 85/55 L 98
[2019-08-19] MEDS: ONDANSETRON INJ 2 MG/ML 2 ML VIAL IV SCH ×4 (00:12→19:27)
[2019-08-19] MEDS: ACETAMINOPHEN SOL 650 MG/20.3 ML UDC PO SCH ×5 (01:03→21:33)
[2019-08-19] MEDS: LEVOTHYROXINE SODIUM 25 MCG TABLET PO SCH (06:03)
[2019-08-19] MEDS: HEPARIN SOD 5,000 UNIT/0.5 ML VIAL SQ SCH ×3 (06:08→21:34)
[2019-08-19] MEDS: cefTRIAXone SODIUM 1,000 MG in DEXTROSE 5% 50 ML IV SCH (09:43)
[2019-08-19] MEDS: ALBUT/IPRATROP 3MG/0.5MG NEB 3 ML VIAL NEB PRN (11:08)
[2019-08-19] MEDS: D5W AND 1/2NSS 1,000 ML IV SCH (12:05)
--- NOTE | 2019-08-19 17:03 | Palliative Care Progress Note ---
Date of Service August 19, 2019 Assessment & Plan (1) Goals of care, counseling/discussion: - Met with and daughter at bedside as well as privately outside the room. Discussed patient's current medical issues including metastatic stage IV breast cancer, hyperglycemia, hyponatremia and poor p.o. intake. Pt's goal is to cont to improve and participate in rehab with goal to walk and then eventual return home -Discussed different options of treatment-maintaining patient's blood sugar and sodium are becoming more difficult, patient starting to third space fluids. If unable to take adequate PO , would recommend home with Hospice. -Discussed option of returning home with comfort/hospice care. Urgent referral if pt declines to level seen yesterday (2) Breast cancer, stage 4: Continue discussions regarding comfort care (3) Metastasis to bone: Schedule Tylenol, avoid opioids if possible per family request (4) Metastasis to brain: (5) Hypoglycemia: Encourage p.o. to keep blood sugars within normal range. Significant altered mental status with low blood sugars. Subjective Pt seen and examined, and daughter at bedside Pt more alert and oriented today, able to participate in conversation regarding goals of care Discussed current condition regarding poor PO intake with resulting low blood sugar levels , third spacing of fluids as she has required IV glucose and hydration. Family reports pt has always had low BP with SBP in the 80's Pt would like to try to take more PO. Her goal is to be able to get rehab. She has been fitted for LE braces to prevent knee hyperextension. This is possible if pt continues to improve. Spoke with family outside the room, that if pt were to decline , they should consider urgent Hospice referral to return home. Hopefully pt will cont to improve and can have a PT/OT eval early next week. Review of Systems Review of Systems: Pt denies pain, fever , chills or nausea Physical Exam Physical Exam: PE: awake , alert and interactive HEENT: bilateral ectropion, hearing WNL Resp: lungs clear CV: rr, + UE and LE edema Abd: soft, NT Ext: can wiggle toes Neuro: A&O Results & Data Vital Signs (Past 12 Hours) Vital Signs Temp Pulse Pulse Resp BP BP Pulse Ox 08/19/19 15:46 97.5 F L 77 79 16 72/51 L 99 08/19/19 11:10 61 19 99 08/19/19 08:00 82 08/19/19 07:58 97.5 F L 76 18 92/67 L 100 PG Care Time/CCT Total # of Minutes Spent Total Time Spent with Patient: Total time spent 65 min with greater than 50% of time spent at bedside discussing current status and goals of care. Collaborated with attending physician as well as case management Prolonged Care Time Prolonged Care Time: Yes Total Prolonged Care Time: 30 Coding Level of Care Code 67041 Subseq Hosp Care Lvl 3 Diagnoses Goals of care, counseling/discussion Z71.89 Breast cancer, stage 4 C50.919 Metastasis to bone C79.51 Metastasis to brain C79.31 Hypoglycemia E16.2 Additional Codes Prolonged Care Time - Prolonged Care Time: Yes ([id number]) Time Spent (min) 65 Critical Care Time Prolonged Care Time Prolonged Care Time: Yes Total Prolonged Care Time: 30 65
--- NOTE | 2019-08-19 19:27 | Hospitalist Progress Note ---
Date of Service August 19, 2019 Assessment & Plan (1) Vomiting and diarrhea: Has been ongoing for sometimes No intestinal obstruction Likely due to cancer with metastasis will d/c D5W since pt diet advanced Diet advanced as tolerated resolved Electrolyte imbalance Hypokalemia, hypomagnesemia and hyponatremia and possible hypocalcemia Has been getting replacement Supplementation was given for calcium, phosphorus, magnesium and potassium Will check electrolytes (2) Hypoglycemia: Not been eating or drinking at home Hypoglycemia secondary to poor nutrition and again contributed by metastatic disease Has been on D5 infusion and maintaining blood sugar Continue advised pt and family to try take more oral intake of food Will D/C D5W since diet advanced (3) Hypotension: Secondary to infection seems to be UTI and dehydration Intravenous fluid to maintain blood pressure Continue monitor closely BP Stable (4) UTI (urinary tract infection): UA examination is suggestive of UTI Has been started him on intravenous cefepime Urine is growing E. coli and which is pansensitive We will discontinue cefepime and start ceftriaxone We will finish the course of intravenous antibiotic with ceftriaxone (5) Hematuria: Has thickened gallbladder wall with mild hydronephrosis on either side Has bladder incontinence secondary to paraplegia May need to have urology evaluation if hematuria persists Resolved (6) DIMAS (acute kidney injury): -admit to tele -patient presenting from home with vomiting, diarrhea, and lethargy -in the ED, patient found to be hypotensive with systolic BPs in the 70s and hypoglycemic with blood sugar 34 -BP improved after IVF bolus and blood sugar improved after D50 and D5W infusion -Straight cath urine was very concentrated with visible blood; UA suggesting UTI -Given hypotension and reported fever at home yesterday, patient may be septic however currently afebrile, no leukocytosis, lactic acid normal -will cover broadly with IV Vanco and IV cefepime, adjust per culture results -Urine and blood cultures obtained-pending for now -Patient had renal ultrasound 03/2019 showing mild right hydroureteronephrosis and polypoid anterior bladder wall thickening. Underlying neoplasm is not excluded; patient has not followed up with urology regarding this; will obtain repeat renal ultrasound -Repeat ultrasound did show severe bladder wall thickening and mild bilateral hydronephrosis -Likely conservative management but if hematuria persist will ask for urology evaluation -Creatinine has been improving and it is 1.36 on 08/14/2019 -Creatinine has been normalized (7) Breast cancer, stage 4: Has had chemotherapy in the past Not a candidate for continued chemo Seems to have progressive disease Palliative care consulted for further guidance of management Dr. 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 Clay Mariee -Currently not receiving treatment -It appears as though the patient has had a steady decline over the past several months. -Poor prognosis -Palliative care on board (10) Hypothyroidism: -Continue home dose of Synthroid (11) DVT prophylaxis: -SQ heparin Disposition Overall prognosis remains poor Palliative care consulted Clinically improved Subjective Pt was seen and examined Lying in bed with no distress with family at bedside Pt is more awake today She was able to converse She asked to advance her diet Denies any chest pain, palpitation and SOB Physical Exam Physical Exam: General-No acute distress Head- atraumatic Eyes- PERRL, EOMI ENT- oropharynx clear Neck- supple, no JVD Lungs- Diminished BS Heart- regular rhythm; no murmur Abdomen- normal bowel sounds, soft, nontender Extremities- no calf tenderness Neuro- alert, awake, Follow commands Skin- warm & dry Results & Data ([facility]) Vital Signs (Past 12 Hours) Vital Signs Temp Pulse Pulse Resp BP BP Pulse Ox 08/19/19 15:46 36.4 C L 77 79 16 72/51 L 99 08/19/19 11:10 61 19 99 08/19/19 08:00 82 08/19/19 07:58 36.4 C L 76 18 92/67 L 100
[2019-08-20] MEDS: ACETAMINOPHEN SOL 650 MG/20.3 ML UDC PO SCH ×4 (01:01→20:42)
[2019-08-20] MEDS: ONDANSETRON INJ 2 MG/ML 2 ML VIAL IV SCH ×4 (01:01→19:00)
[2019-08-20] MEDS: LEVOTHYROXINE SODIUM 25 MCG TABLET PO SCH (05:56)
[2019-08-20] MEDS: HEPARIN SOD 5,000 UNIT/0.5 ML VIAL SQ SCH ×3 (05:57→22:05)
[2019-08-20] MEDS: CARBOHYDRATES FOR HYPOGLYCEMIA PO PRN ×2 (08:01→08:18)
[2019-08-20] MEDS: cefTRIAXone SODIUM 1,000 MG in DEXTROSE 5% 50 ML IV SCH (11:26)
[2019-08-20] MEDS: D5W AND 1/2NSS 1,000 ML IV SCH (12:34)
--- NOTE | 2019-08-20 17:58 | Hospitalist Progress Note ---
Date of Service August 20, 2019 Assessment & Plan (1) Vomiting and diarrhea: Has been ongoing for sometimes No intestinal obstruction Likely due to cancer with metastasis Continue D5W @ 30cc/hr since pt diet advanced resolved Electrolyte imbalance Hypokalemia, hypomagnesemia and hyponatremia and possible hypocalcemia Has been getting replacement Supplementation was given for calcium, phosphorus, magnesium and potassium Will check electrolytes (2) Hypoglycemia: Not been eating or drinking at home Hypoglycemia secondary to poor nutrition and again contributed by metastatic disease Has been on D5 infusion and maintaining blood sugar Continue advised pt and family to try take more oral intake of food Will D/C D5W since diet advanced (3) Hypotension: Secondary to infection seems to be UTI and dehydration Intravenous fluid to maintain blood pressure Continue monitor closely BP Stable (4) UTI (urinary tract infection): UA examination is suggestive of UTI Has been started him on intravenous cefepime Urine is growing E. coli and which is pansensitive We will discontinue cefepime and start ceftriaxone Will complete course of intravenous antibiotic with ceftriaxone tomorrow (5) Hematuria: Has thickened gallbladder wall with mild hydronephrosis on either side Has bladder incontinence secondary to paraplegia May need to have urology evaluation if hematuria persists Resolved (6) DIMAS (acute kidney injury): -admit to tele -patient presenting from home with vomiting, diarrhea, and lethargy -in the ED, patient found to be hypotensive with systolic BPs in the 70s and hypoglycemic with blood sugar 34 -BP improved after IVF bolus and blood sugar improved after D50 and D5W infusion -Straight cath urine was very concentrated with visible blood; UA suggesting UTI -Given hypotension and reported fever at home yesterday, patient may be septic however currently afebrile, no leukocytosis, lactic acid normal -will cover broadly with IV Vanco and IV cefepime, adjust per culture results -Urine and blood cultures obtained-pending for now -Patient had renal ultrasound 03/2019 showing mild right hydroureteronephrosis and polypoid anterior bladder wall thickening. Underlying neoplasm is not excluded; patient has not followed up with urology regarding this; will obtain repeat renal ultrasound -Repeat ultrasound did show severe bladder wall thickening and mild bilateral hydronephrosis -Likely conservative management but if hematuria persist will ask for urology e valuation -Creatinine has been improving and it is 1.36 on 08/14/2019 -Creatinine has been normalized (7) Breast cancer, stage 4: Has had chemotherapy in the past Not a candidate for continued chemo Seems to have progressive disease Palliative care consulted for further guidance of management Dr. 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 Status post back surgery in March of last year Has ongoing paraplegia even before surgery (10) Hypothyroidism: Continue home dose of Synthroid (11) DVT prophylaxis: -SQ heparin Disposition Overall prognosis remains poor Palliative care on Board Clinically improved PT/OT eval Subjective Pt was seen and examined Lying in bed with no distress Pt looks much better every day Her speech is more fluent and she looks more awake Denies any chest pain, palpitation and SOB Physical Exam Physical Exam: General-No acute distress Head- atraumatic Eyes- PERRL, EOMI ENT- oropharynx clear Neck- supple, no JVD Lungs- +wheezing Heart- regular rhythm; no murmur Abdomen- normal bowel sounds, soft, nontender Extremities- no calf tenderness Neuro- alert, awake, Follow commands Skin- warm & dry Results & Data ([facility]) Vital Signs (Past 12 Hours) Vital Signs Temp Pulse Pulse Resp BP BP Pulse Ox 08/20/19 14:20 36.6 C 74 18 85/61 L 100 08/20/19 11:15 36.8 C 71 18 70/52 L 108/72 100 08/20/19 08:00 78 08/20/19 07:30 36.3 C L 81 18 104/66 99
[2019-08-20] MEDS ORDERED: POTASSIUM CHLORIDE 20 MEQ TABCR PO STA (22:12)
[2019-08-20 23:02] LABS: BUN Creatinine Ratio 5.9 (10-20); Calcium 7.2 mg/dl (8.5-10.1); Creatinine Clr Calc Pharmacy 38.9 ml/min; Est GFR (African American) 55.9; Est GFR (Non-African American) 48.3; Magnesium 1.7 mg/dl (1.8-2.4); Potassium 3.4 mmol/L (3.5-5.1)
[2019-08-20] MEDS: POTASSIUM CHLORIDE 20 MEQ/15 ML UDC PO STA ×2 (23:11→23:47)
[2019-08-21] MEDS: ONDANSETRON INJ 2 MG/ML 2 ML VIAL IV SCH ×4 (00:05→19:52)
[2019-08-21] MEDS: ACETAMINOPHEN SOL 650 MG/20.3 ML UDC PO SCH ×4 (01:41→20:20)
[2019-08-21] MEDS: HEPARIN SOD 5,000 UNIT/0.5 ML VIAL SQ SCH ×3 (05:13→20:20)
[2019-08-21] MEDS: LEVOTHYROXINE SODIUM 25 MCG TABLET PO SCH (05:53)
[2019-08-21] MEDS ORDERED: D5W AND LACTATED RINGERS 1,000 ML IV ONE (06:02)
[2019-08-21] MEDS ORDERED: POTASSIUM CHLORIDE / WTR 10 MEQ/100 ML PLCT IV ONE (06:03)
[2019-08-21 06:23] LABS: Hematocrit (blood only) 26.5 % (37-47); Hemoglobin 8.9 g/dL (12.0-16.0); Mean Corpuscular Hemoglobin 29.3 pg (25-34); Mean Corpuscular Hgb Conc 33.6 g/dL (32-36); Mean Corpuscular Volume 87.2 fL (80-100); Mean Platelet Volume 10.3 fL (7.4-10.4); Platelet Count 308 K/uL (130-400); RDW Coefficient of Variation 15.6 % (11.5-14.5); RDW Standard Deviation 49.6 fL (36.4-46.3); Red Blood Count 3.04 M/uL (4.2-5.4); White Blood Count 3.64 K/uL (4.8-10.8)
[2019-08-21 06:52] LABS: BUN Creatinine Ratio 5.6 (10-20); Calcium 6.8 mg/dl (8.5-10.1); Creatinine Clr Calc Pharmacy 40.2 ml/min; Est GFR (African American) 58.2; Est GFR (Non-African American) 50.3; Magnesium 1.7 mg/dl (1.8-2.4); Potassium 3.9 mmol/L (3.5-5.1)
[2019-08-21] MEDS ORDERED: MAGNESIUM SULFATE / D5W 1 GM/100 ML BAG IV ONE (07:30)
[2019-08-21] MEDS: D5W AND LACTATED RINGERS 1,000 ML IV SCH ×2 (08:13→20:21)
[2019-08-21] MEDS: MAGNESIUM OXIDE 400 MG TAB PO SCH ×2 (08:58→20:22)
[2019-08-21] MEDS: cefTRIAXone SODIUM 1,000 MG in DEXTROSE 5% 50 ML IV SCH (09:48)
--- NOTE | 2019-08-21 16:49 | Hospitalist Progress Note ---
Date of Service August 21, 2019 Assessment & Plan (1) Vomiting and diarrhea: Has been ongoing for sometimes No intestinal obstruction Likely due to cancer with metastasis Diet advanced resolved Electrolyte imbalance Hypokalemia, hypomagnesemia and hyponatremia and possible hypocalcemia Mg replaced Monitor Electrolytes (2) Hypoglycemia: Not been eating or drinking at home Hypoglycemia secondary to poor nutrition and again contributed by metastatic disease Has been on D5 infusion and maintaining blood sugar Continue advised pt and family to try take more oral intake of food BS improved since pt diet advanced (3) Hypotension: Secondary to infection seems to be UTI and dehydration Intravenous fluid to maintain blood pressure Continue monitor closely BP Stable (4) UTI (urinary tract infection): UA examination is suggestive of UTI Has been started him on intravenous cefepime Urine is growing E. coli and which is pansensitive We will discontinue cefepime and start ceftriaxone Will complete course of intravenous antibiotic with ceftriaxone tomorrow (5) Hematuria: Has thickened gallbladder wall with mild hydronephrosis on either side Has bladder incontinence secondary to paraplegia May need to have urology evaluation if hematuria persists Resolved (6) DIMAS (acute kidney injury): -admit to tele -patient presenting from home with vomiting, diarrhea, and lethargy -in the ED, patient found to be hypotensive with systolic BPs in the 70s and hypoglycemic with blood sugar 34 -BP improved after IVF bolus and blood sugar improved after D50 and D5W infusion -Straight cath urine was very concentrated with visible blood; UA suggesting UTI -Given hypotension and reported fever at home yesterday, patient may be septic however currently afebrile, no leukocytosis, lactic acid normal -will cover broadly with IV Vanco and IV cefepime, adjust per culture results -Urine and blood cultures obtained-pending for now -Patient had renal ultrasound 03/2019 showing mild right hydroureteronephrosis and polypoid anterior bladder wall thickening. Underlying neoplasm is not excluded; patient has not followed up with urology regarding this; will obtain repeat renal ultrasound -Repeat ultrasound did show severe bladder wall thickening and mild bilateral hydronephrosis -Likely conservative management but if hematuria persist will ask for urology evaluation -Creatinine has been improving and it is 1.36 on 08/14/2019 -Creatinine has been normalized (7) Breast cancer, stage 4: Has had chemotherapy in the past Not a candidate for continued chemo Seems to have progressive disease Palliative care consulted for further guidance of management Dr. Mariee will be calling the regarding further guidance of management Palliative on board Family plan to take her home since pt is improved (8) Metastasis to brain: -Follows with Dr. Clay Mariee -Currently not receiving treatment -It appears as though the patient has had a steady decline over the past several months. 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 Status post back surgery in March of last year Has ongoing paraplegia even before surgery (10) Hypothyroidism: Continue home dose of Synthroid (11) DVT prophylaxis: -SQ heparin Disposition Overall prognosis remains poor Palliative care on Board Clinically improved PT/OT eval Subjective Pt was seen and examined Lying in bed with no distress Pt said that therapy was here today walking with her She said that she feels very weak Denies any chest pain, palpitation and SOB Physical Exam Physical Exam: General-No acute distress Head- atraumatic Eyes- PERRL, EOMI ENT- oropharynx clear Neck- supple, no JVD Lungs- No wheezing Heart- regular rhythm; no murmur Abdomen- normal bowel sounds, soft, nontender Extremities- no calf tenderness, +edema Neuro- alert, awake, Follow commands Skin- warm & dry Results & Data ([facility]) Vital Signs (Past 12 Hours) Vital Signs Temp Pulse Pulse Resp BP Pulse Ox 08/21/19 15:00 36.3 C L 70 18 103/74 90 08/21/19 10:49 36.4 C L 76 18 82/66 L 99 08/21/19 08:00 70 08/21/19 07:00 36.5 C 77 18 80/50 L 97
[2019-08-21] MEDS ORDERED: CALCIUM CARBONATE 500 MG CHEWABLE TAB PO STA (20:55)
[2019-08-22] MEDS: ONDANSETRON INJ 2 MG/ML 2 ML VIAL IV SCH ×5 (00:44→17:10)
[2019-08-22] MEDS: ACETAMINOPHEN SOL 650 MG/20.3 ML UDC PO SCH ×4 (01:01→20:10)
[2019-08-22] MEDS: LEVOTHYROXINE SODIUM 25 MCG TABLET PO SCH (06:01)
[2019-08-22] MEDS: HEPARIN SOD 5,000 UNIT/0.5 ML VIAL SQ SCH ×3 (06:01→21:34)
[2019-08-22] MEDS: D5W AND LACTATED RINGERS 1,000 ML IV SCH ×2 (08:05→21:33)
[2019-08-22] MEDS: MAGNESIUM OXIDE 400 MG TAB PO SCH ×2 (08:56→20:11)
--- NOTE | 2019-08-22 14:07 | Palliative Care Progress Note ---
Date of Service August 22, 2019 Assessment & Plan (1) Goals of care, counseling/discussion: - Pt's goal is to improve her strength, interested in rehab -Pt continuing to improve - taking some PO - Will cont to follow and assist pt and family with medical decision making (2) Breast cancer, stage 4: Pt's functional status would not allow further chemo at this time- pt can meet with Onc once she is stronger and completes rehab (3) Metastasis to bone: Schedule Tylenol, avoid opioids if possible per family request (4) Metastasis to brain: (5) Hypoglycemia: Encourage p.o. to keep blood sugars within normal range. Significant altered mental status with low blood sugars. Subjective Pt seen and examined, no family at bedside Pt awake and alert, NAD PT/OT to evaluate this afternoon. Pt would like to go to rehab and get stronger Review of Systems Review of Systems: Denies lomeli, fever, chills, CP, SOB or abd pain Physical Exam Physical Exam: PE: NAD HEENT: EOMI, hearing WNL, eyes less crusted, sclera less injected Resp: unlabored CV: RR ABD: not distended EXT: weakness LE>>UE Neuro: alert and oriented Results & Data Vital Signs (Past 12 Hours) Vital Signs Temp Pulse Pulse Resp BP Pulse Ox 08/22/19 11:02 98.2 F 85 18 91/65 L 99 08/22/19 08:00 83 08/22/19 07:47 97.5 F L 81 18 98/75 L 99 08/22/19 04:00 97.7 F 83 20 85/60 L 92 PG Care Time/CCT Total # of Minutes Spent Total Time Spent with Patient: Total time spent 25 min with greater than 50% of the time spent at bedside assessing pt's current status, discussing goals of care and collaboration with attending physician Coding Level of Care Code 13920 Subseq Hosp Care Lvl 2 Diagnoses Goals of care, counseling/discussion Z71.89 Breast cancer, stage 4 C50.919 Metastasis to bone C79.51 Metastasis to brain C79.31 Hypoglycemia E16.2 Time Spent (min) 25
--- NOTE | 2019-08-22 18:29 | Hospitalist Progress Note ---
Date of Service August 22, 2019 Assessment & Plan (1) Vomiting and diarrhea: Has been ongoing for sometimes No intestinal obstruction Likely due to cancer with metastasis Diet advanced as tolerated Stool for Cdiff negative Continue gentle IVF Electrolyte imbalance Hypokalemia, hypomagnesemia and hyponatremia and possible hypocalcemia Mg replaced Monitor Electrolytes Will decreased IVF (2) Hypoglycemia: Not been eating or drinking at home Hypoglycemia secondary to poor nutrition and again contributed by metastatic disease Has been on D5 infusion and maintaining blood sugar Continue advised pt and family to try take more oral intake of food BS improved since pt diet advanced Since she has very poor appetite, will add megace (3) Hypotension: Secondary to infection seems to be UTI and dehydration Intravenous fluid to maintain blood pressure Continue monitor closely BP Stable (4) UTI (urinary tract infection): UA examination is suggestive of UTI Has been started him on intravenous cefepime Urine is growing E. coli and which is pansensitive We will discontinue cefepime and start ceftriaxone Completed course of intravenous antibiotic with ceftriaxone (5) Hematuria: Has thickened gallbladder wall with mild hydronephrosis on either side Has bladder incontinence secondary to paraplegia May need to have urology evaluation if hematuria persists Resolved (6) DIMAS (acute kidney injury): -admit to tele -patient presenting from home with vomiting, diarrhea, and lethargy -in the ED, patient found to be hypotensive with systolic BPs in the 70s and hypoglycemic with blood sugar 34 -BP improved after IVF bolus and blood sugar improved after D50 and D5W infusion -Straight cath urine was very concentrated with visible blood; UA suggesting UTI -Given hypotension and reported fever at home yesterday, patient may be septic however currently afebrile, no leukocytosis, lactic acid normal -will cover broadly with IV Vanco and IV cefepime, adjust per culture results -Urine and blood cultures obtained-pending for now -Patient had renal ultrasound 03/2019 showing mild right hydroureteronephrosis and polypoid anterior bladder wall thickening. Underlying neoplasm is not excluded; patient has not followed up with urology regarding this; will obtain repeat renal ultrasound -Repeat ultrasound did show severe bladder wall thickening and mild bilateral hydronephrosis -Likely conservative management but if hematuria persist will ask for urology evaluation -Creatinine has been improving and it is 1.36 on 08/14/2019 -Creatinine has been normalized (7) Breast cancer, stage 4: Has had chemotherapy in the past Not a candidate for continued chemo Seems to have progressive disease Palliative care consulted for further guidance of management Dr. Mariee will be calling the regarding further guidance of management Palliative on board Family plan to go to rehab since pt continues to improves (8) Metastasis to brain: -Follows with Dr. Clay Mariee -Currently not receiving treatment -It appears as though the patient has had a steady decline over the past several months. 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 Status post back surgery in March of last year Has ongoing paraplegia even before surgery (10) Hypothyroidism: Continue home dose of Synthroid (11) DVT prophylaxis: -SQ heparin Disposition Overall prognosis remains poor Palliative care on Board Clinically improved PT/OT eval Waiting for placement to rehab Subjective Pt was seen and examined Lying in bed with no distress Nurse said that pt had 2 episode of diarrhea this morning She continues to improve slowly Family will consider to transition to rehab Denies any chest pain, palpitation, dizziness and SOB Physical Exam Physical Exam: General-No acute distress Head- atraumatic Eyes- PERRL, EOMI ENT- oropharynx clear Neck- supple, no JVD Lungs- No wheezing Heart- regular rhythm; no murmur Abdomen- normal bowel sounds, soft, nontender Extremities- no calf tenderness, +edema Neuro- alert, awake, Follow commands Skin- warm & dry Results & Data ([facility]) Vital Signs (Past 12 Hours) Vital Signs Temp Pulse Pulse Resp BP Pulse Ox 08/22/19 16:00 86 08/22/19 15:26 36.8 C 87 18 109/75 98 08/22/19 11:02 36.8 C 85 18 91/65 L 99 08/22/19 08:00 83 08/22/19 07:47 36.4 C L 81 18 98/75 L 99
[2019-08-22] MEDS: MEGESTROL ACETATE 40 MG TAB PO SCH (20:10)
[2019-08-23] MEDS: DEXTROSE 50% 50 ML SYRINGE IV PRN (00:25)
[2019-08-23] MEDS: ONDANSETRON INJ 2 MG/ML 2 ML VIAL IV SCH ×4 (01:26→16:51)
[2019-08-23] MEDS: ACETAMINOPHEN SOL 650 MG/20.3 ML UDC PO SCH ×4 (02:59→19:47)
[2019-08-23] MEDS: LEVOTHYROXINE SODIUM 25 MCG TABLET PO SCH (06:20)
[2019-08-23] MEDS: HEPARIN SOD 5,000 UNIT/0.5 ML VIAL SQ SCH ×3 (06:20→20:31)
[2019-08-23] MEDS: MEGESTROL ACETATE 40 MG TAB PO SCH ×2 (09:31→20:31)
[2019-08-23] MEDS: MAGNESIUM OXIDE 400 MG TAB PO SCH ×2 (09:32→20:30)
--- NOTE | 2019-08-23 14:34 | Palliative Care Progress Note ---
Date of Service August 23, 2019 Assessment & Plan (1) Goals of care, counseling/discussion: - Pt's goal is to improve her strength, interested in rehab -Pt continuing to improve - taking some PO, but continues to have episodes of hypoglycemia requiring intervention - Will cont to follow and assist pt and family with medical decision making (2) Breast cancer, stage 4: Pt's functional status would not allow further chemo at this time- pt can meet with Onc once she is stronger and completes rehab (3) Metastasis to bone: Schedule Tylenol, avoid opioids if possible per family request (4) Metastasis to brain: (5) Hypoglycemia: Encourage p.o. to keep blood sugars within normal range. Significant altered mental status with low blood sugars. Subjective Patient seen and examined, no family at bedside. Patient reiterated that her goals are to possibly go to rehab and get stronger. Patient did have hypoglycemia overnight, she is unable to adequate p.o. to maintain blood sugars. Attempted to call patient's to discuss rehab versus returning home. Phone number in the chart called of cell phone in the patient's room and was answered by the patient. Collaborated with case management regarding rehab referrals-we will await insurance authorization. Nursing notes reported loose stools-May need to monitor patient's dairy intake Review of Systems Review of Systems: Patient denies pain, fever, chills, chest pain, shortness of breath, or abdominal pain. She was noted by nursing to have loose stools. Physical Exam Physical Exam: PE: Awake and alert, no acute distress HEENT: EOMI, hearing within normal limits Respirations: Unlabored, clear breath sounds CV: Regular rate Abdomen: Soft, nontender Results & Data Vital Signs (Past 12 Hours) Vital Signs Temp Pulse Pulse Resp BP Pulse Ox 08/23/19 11:31 98.4 F 81 18 103/73 99 08/23/19 07:59 98.4 F 82 18 102/73 100 08/23/19 07:08 83 08/23/19 04:14 97.3 F L 81 16 89/64 L 98 08/23/19 03:40 84 PG Care Time/CCT Total # of Minutes Spent Total Time Spent with Patient: Total time spent 25 minutes with greater than 50% of the time at bedside assessing patient's current status as well as confirming goals of care Coding Level of Care Code 62947 Subseq Hosp Care Lvl 2 Diagnoses Goals of care, counseling/discussion Z71.89 Breast cancer, stage 4 C50.919 Metastasis to bone C79.51 Metastasis to brain C79.31 Hypoglycemia E16.2 Time Spent (min) 25
--- NOTE | 2019-08-23 19:23 | Hospitalist Progress Note ---
Date of Service August 23, 2019 Assessment & Plan (1) Vomiting and diarrhea: Has been ongoing for sometimes No intestinal obstruction Likely due to cancer with metastasis Diet advanced as tolerated Stool for Cdiff negative Will d/c gentle IVF Electrolyte imbalance Hypokalemia, hypomagnesemia and hyponatremia and possible hypocalcemia Mg replaced Monitor Electrolytes Will decreased IVF (2) Hypoglycemia: Not been eating or drinking at home Hypoglycemia secondary to poor nutrition and again contributed by metastatic disease Has been on D5 infusion and maintaining blood sugar Continue advised pt and family to try take more oral intake of food BS improved since pt diet advanced Continue Megace Since she has very poor appetite (3) Hypotension: Secondary to infection seems to be UTI and dehydration Intravenous fluid to maintain blood pressure Continue monitor closely BP Stable (4) UTI (urinary tract infection): UA examination is suggestive of UTI Has been started him on intravenous cefepime Urine is growing E. coli and which is pansensitive We will discontinue cefepime and start ceftriaxone Completed course of intravenous antibiotic with ceftriaxone (5) Hematuria: Has thickened gallbladder wall with mild hydronephrosis on either side Has bladder incontinence secondary to paraplegia May need to have urology evaluation if hematuria persists Resolved (6) DIMAS (acute kidney injury): -admit to tele -patient presenting from home with vomiting, diarrhea, and lethargy -in the ED, patient found to be hypotensive with systolic BPs in the 70s and hypoglycemic with blood sugar 34 -BP improved after IVF bolus and blood sugar improved after D50 and D5W infusion -Straight cath urine was very concentrated with visible blood; UA suggesting UTI -Given hypotension and reported fever at home yesterday, patient may be septic however currently afebrile, no leukocytosis, lactic acid normal -will cover broadly with IV Vanco and IV cefepime, adjust per culture results -Urine and blood cultures obtained-pending for now -Patient had renal ultrasound 03/2019 showing mild right hydroureteronephrosis and polypoid anterior bladder wall thickening. Underlying neoplasm is not excluded; patient has not followed up with urology regarding this; will obtain repeat renal ultrasound -Repeat ultrasound did show severe bladder wall thickening and mild bilateral hydronephrosis -Likely conservative management but if hematuria persist will ask for urology evaluation -Creatinine has been improving and it is 1.36 on 08/14/2019 -Creatinine has been normalized (7) Breast cancer, stage 4: Has had chemotherapy in the past Not a candidate for continued chemo Seems to have progressive disease Palliative care consulted for further guidance of management Dr. Mariee will be calling the regarding further guidance of management Palliative on board Family plan to go to rehab since pt continues to improves case discussed with Oncology Dr. Mariee who will discuss possible hormonal treatment with patient if she recovers from rehab in the follow up office visit (8) Metastasis to brain: -Follows with Dr. Clay Mariee -Currently not receiving treatment -It appears as though the patient has had a steady decline over the past several months. 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 Status post back surgery in March of last year Has ongoing paraplegia even before surgery (10) Hypothyroidism: Continue home dose of Synthroid (11) DVT prophylaxis: -SQ heparin Disposition Overall prognosis remains poor Palliative care on Board Clinically improved PT/OT eval Waiting for placement to rehab Subjective Pt was seen and examined Lying in bed with no distress Pt had therapy today Diarrhea improved Denies any chest pain, palpitation and SOB Physical Exam Physical Exam: General-No acute distress Head- atraumatic Eyes- PERRL, EOMI ENT- oropharynx clear Neck- supple, no JVD Lungs- No wheezing Heart- regular rhythm; no murmur Abdomen- normal bowel sounds, soft, nontender Extremities- no calf tenderness, +edema Neuro- alert, awake, Follow commands Skin- warm & dry Results & Data ([facility]) Vital Signs (Past 12 Hours) Vital Signs Temp Pulse Pulse Resp BP Pulse Ox 08/23/19 15:46 36.5 C 84 20 112/76 98 08/23/19 15:22 80 08/23/19 11:31 36.9 C 81 18 103/73 99 08/23/19 07:59 36.9 C 82 18 102/73 100
[2019-08-23] MEDS: D5W AND LACTATED RINGERS 1,000 ML IV SCH (22:08)
[2019-08-24] MEDS: ONDANSETRON INJ 2 MG/ML 2 ML VIAL IV SCH ×4 (00:33→19:31)
[2019-08-24] MEDS: SODI CHLOR 2.5MEQ/ML 14.6% 77 MEQ in DEXTROSE 10% 1,000 ML IV SCH ×2 (01:20→17:57)
[2019-08-24] MEDS: ACETAMINOPHEN SOL 650 MG/20.3 ML UDC PO SCH ×4 (01:20→20:55)
[2019-08-24] MEDS: LEVOTHYROXINE SODIUM 25 MCG TABLET PO SCH (06:06)
[2019-08-24] MEDS: HEPARIN SOD 5,000 UNIT/0.5 ML VIAL SQ SCH ×3 (06:06→20:55)
[2019-08-24 06:22] LABS: Hematocrit (blood only) 26.1 % (37-47); Hemoglobin 8.6 g/dL (12.0-16.0); Mean Corpuscular Hemoglobin 28.9 pg (25-34); Mean Corpuscular Volume 87.6 fL (80-100); Mean Platelet Volume 10.1 fL (7.4-10.4); Platelet Count 279 K/uL (130-400); RDW Coefficient of Variation 15.8 % (11.5-14.5); RDW Standard Deviation 48.6 fL (36.4-46.3); Red Blood Count 2.98 M/uL (4.2-5.4); White Blood Count 3.76 K/uL (4.8-10.8)
[2019-08-24 07:04] LABS: BUN Creatinine Ratio 5.5 (10-20); Calcium 7.5 mg/dl (8.5-10.1); Creatinine Clr Calc Pharmacy 44.2 ml/min; Est GFR (African American) 62.8; Est GFR (Non-African American) 54.1; Magnesium 1.8 mg/dl (1.8-2.4); Potassium 3.4 mmol/L (3.5-5.1)
[2019-08-24] MEDS: MEGESTROL ACETATE 40 MG TAB PO SCH ×2 (08:42→20:55)
[2019-08-24] MEDS: MAGNESIUM OXIDE 400 MG TAB PO SCH ×2 (08:42→20:55)
[2019-08-24] MEDS ORDERED: POTASSIUM CHLORIDE 20 MEQ TABCR PO STA (09:38)
[2019-08-24] MEDS: PROMETHAZINE HCL 12.5 MG in SODIUM CHLORIDE 0.9% 50 ML IV PRN (09:48)
[2019-08-24] MEDS: POTASSIUM CHLORIDE / WTR 10 MEQ/100 ML PLCT IV SCH ×2 (10:22→11:35)
[2019-08-24] MEDS: DEXTROSE 50% 50 ML SYRINGE IV PRN (11:34)
--- NOTE | 2019-08-24 15:41 | Hospitalist Progress Note ---
Date of Service August 24, 2019 Assessment & Plan (1) Vomiting and diarrhea: Has been ongoing for sometimes No intestinal obstruction Likely due to cancer with metastasis Diet advanced as tolerated Stool for Cdiff negative Has been getting dextrose infusion for hypoglycemia Symptomatic management of nausea and vomiting Electrolyte imbalance Hypokalemia, hypomagnesemia and hyponatremia and possible hypocalcemia Mg replaced Monitor Electrolytes Potassium replaced and will check phosphate level as well (2) Hypoglycemia: Not been eating or drinking at home Hypoglycemia secondary to poor nutrition and again contributed by metastatic disease Has been on D5 infusion and maintaining blood sugar Continue advised pt and family to try take more oral intake of food Hypoglycemia remains a problem since about admission She is now requiring D10 infusion to maintain blood sugar Her appetite is poor and has been started on Megace Strongly advised to take more food and try boost as needed (3) Hypotension: Secondary to infection seems to be UTI and dehydration Intravenous fluid to maintain blood pressure Continue monitor closely BP Stable-around systolic 90s (4) UTI (urinary tract infection): UA examination is suggestive of UTI Has been started him on intravenous cefepime Urine is growing E. coli and which is pansensitive We will discontinue cefepime and start ceftriaxone Completed course of intravenous antibiotic with ceftriaxone No more hematuria and no urinary symptoms (5) Hematuria: Has thickened gallbladder wall with mild hydronephrosis on either side Has bladder incontinence secondary to paraplegia May need to have urology evaluation if hematuria persists Resolved (6) DIMAS (acute kidney injury): -admit to tele -patient presenting from home with vomiting, diarrhea, and lethargy -in the ED, patient found to be hypotensive with systolic BPs in the 70s and hypoglycemic with blood sugar 34 -BP improved after IVF bolus and blood sugar improved after D50 and D5W infusion -Straight cath urine was very concentrated with visible blood; UA suggesting UTI -Given hypotension and reported fever at home yesterday, patient may be septic however currently afebrile, no leukocytosis, lactic acid normal -will cover broadly with IV Vanco and IV cefepime, adjust per culture results -Urine and blood cultures obtained-pending for now -Patient had renal ultrasound 03/2019 showing mild right hydroureteronephrosis and polypoid anterior bladder wall thickening. Underlying neoplasm is not excluded; patient has not followed up with urology regarding this; will obtain repeat renal ultrasound -Repeat ultrasound did show severe bladder wall thickening and mild bilateral hydronephrosis -Likely conservative management but if hematuria persist will ask for urology evaluation -Creatinine has been improving and it is 1.36 on 08/14/2019 -Creatinine has been normalized (7) Breast cancer, stage 4: Has had chemotherapy in the past Not a candidate for continued chemo Seems to have progressive disease Palliative care consulted for further guidance of management Dr. Mariee will be calling the regarding further guidance of management Palliative on board Family plan to go to rehab since pt continues to improves case discussed with Oncology Dr. Mariee who will discuss possible hormonal treatment with patient if she recovers from rehab in the follow up office visit Case discussed with the oncologist no further treatment at this time Discussed with the family members Will continue current management (8) Metastasis to brain: -Follows with Dr. Clay Mariee -Currently not receiving treatment -It appears as though the patient has had a steady decline over the past several months. 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 Status post back surgery in March of last year Has ongoing paraplegia even before surgery (10) Hypothyroidism: Continue home dose of Synthroid (11) DVT prophylaxis: -SQ heparin Disposition Overall prognosis remains poor Palliative care on Board Clinically improved PT/OT eval Waiting for placement to rehab Subjective 08/13/2019 Patient is seen and examined in telemetry unit in presence of the She is a 59-year-old female significant past medical history including bilateral breast cancer with metastasis to bone and brain and spinal cord was admitted yesterday with nausea, vomiting and diarrhea, hypoglycemia and hypotension Remains stable but generally very weak and lethargic Complains generalized pain but nausea and vomiting seem to be improving 08/14/2019 Patient is seen and examined in telemetry unit in presence of the She feels a lot better today but remains extremely lethargic Complains some back pain which is improving with intravenous Tylenol 08/15/2019 The patient was seen and examined in presence of her The thinks that patient is having lots of pain with distress at times Does not have any acute shortness of breath Remains extremely weak and lethargic 08/16/2019 Patient was seen and examined in medical floor She has been stable as of this morning Only complains of wheezing Denies any pain at rest 08/24/2019 The patient was seen and examined in the presence of family members She remains weak and lethargic and has had nausea with vomiting this morning following food She denies any acute symptoms while in bed Review of Systems Review of Systems: All systems reviewed & are unremarkable except as noted in Subjective Physical Exam Physical Exam: Lying in bed comfortably Constitutional: + ill appearing, + thin and + cachectic; no acute distress Eyes: PERRL, conjunctivae normal, anicteric sclerae ENMT: external ear and nose normal, oropharynx normal Neck: trachea midline, no thyromegaly Respiratory: normal respiratory effort; no respiratory distress Auscultation: lungs clear to auscultation bilaterally and + diminished lung sounds Cardiovascular: Rate/Rhythm: regular rate and regular rhythm Heart Sounds: no murmur Gastrointestinal (Abdomen): Inspection/Auscultation: abdomen normal to inspection and normal bowel sounds Percussion/Palpation: + abdomen tender (Mildly tender all over) and abdomen soft Musculoskeletal: No acute arthritis involving any joints Neurologic: moves all extremities and awake Lymphatic: no cervical or axillary lymphadenopathy Results & Data ([facility]) Vital Signs (Past 12 Hours) Vital Signs Temp Pulse Resp BP Pulse Ox 08/24/19 15:30 37.2 C 79 18 98/71 L 100 08/24/19 11:19 36.3 C L 83 20 90/61 L 97 08/24/19 07:18 36.4 C L 79 18 94/67 L 99 Laboratory Results Short CBC 08/24/19 Range/Units 05:43 WBC 3.76 L (4.8-10.8) K/uL Hgb 8.6 L (12.0-16.0) g/dL Hct 26.1 L (37-47) % Plt Count 279 (130-400) K/uL BMP 08/24/19 05:43 Sodium 142 Potassium 3.4 L Chloride 120 H Carbon Dioxide 17 L BUN 6 L Creatinine 1.10 Glucose 74 Calcium 7.5 L Medications Administered Current Inpatient Medications Acetaminophen (Tylenol) 650 mg PO Q6H [facility] Stop: 09/17/19 13:59 Last Admin: 08/24/19 13:21 Dose: Not Given Documented by: Albuterol (Duoneb) 3 ml NEB Q4R PRN PRN Reason: Shortness Of Breath Or Wheezing Stop: 09/17/19 14:59 Last Admin: 08/19/19 11:08 Dose: 3 ml Documented by: Dextrose (Dextrose 50%) 25 - 50 ml IV UD PRN; Protocol PRN Reason: Hypoglycemia Protocol Stop: 09/11/19 17:21 Last Admin: 08/24/19 11:34 Dose: 25 ml Documented by: Glucagon (Glucagen) 1 mg SQ UD PRN; Protocol PRN Reason: Hypoglycemia Protocol Stop: 09/11/19 17:21 Glucose (Dex4 Glucose) 4 - 8 tabs PO UD PRN; Protocol PRN Reason: Hypoglycemia Protocol Stop: 09/11/19 17:21 Glucose (Glucose 40%) 15 - 30 gm PO UD PRN; Protocol PRN Reason: Hypoglycemia Protocol Stop: 09/11/19 17:21 Heparin Sodium (Porcine) (Heparin Sodium (Porcine)) 5,000 units SQ Q8 [facility] Stop: 09/11/19 15:59 Last Admin: 08/24/19 13:21 Dose: Not Given Documented by: Heparin Sodium (Porcine) (Heparin Sod 100 Unit/Ml Flush) 5 ml FLUSH PRN PRN PRN Reason: Flush Stop: 09/11/19 23:14 Promethazine HCl 12.5 mg/ (Sodium Chloride) 50.5 mls @ 202 mls/hr IV Q6H PRN PRN Reason: Nausea And Vomiting Stop: 09/20/19 20:54 Last Infusion: 08/24/19 10:21 Dose: Infused Documented by: Sodium Chloride 77 meq/ (Dextrose) 1,030.8 mls @ 60 mls/hr IV .[id number] [facility] Stop: 09/23/19 00:59 Last Admin: 08/24/19 01:20 Dose: 60 mls/hr Documented by: Levothyroxine Sodium (Synthroid) 62.5 mcg PO DAILYBB [facility] Stop: 09/12/19 06:29 Last Admin: 08/24/19 06:06 Dose: 62.5 mcg Documented by: Magnesium Oxide (Mag-Ox) 400 mg PO BID [facility] Stop: 09/20/19 08:29 Last Admin: 08/24/19 08:42 Dose: Not Given Documented by: Megestrol Acetate (Megace) 40 mg PO BID [facility] Stop: 09/21/19 20:59 Last Admin: 08/24/19 08:42 Dose: Not Given Documented by: Miscellaneous (Carbohydrates For Hypoglycemia) 15 - 30 gm PO UD PRN PRN Reason: Hypoglycemia Protocol Stop: 09/11/19 17:21 Last Admin: 08/20/19 08:18 Dose: 15 gm Documented by: Morphine Sulfate (Roxanol) 2.5 mg PO Q6H PRN PRN Reason: Pain Stop: 08/30/19 15:00 Last Admin: 08/17/19 19:05 Dose: 2.5 mg Documented by: Ondansetron HCl (Zofran) 4 mg IV Q6H [facility] Stop: 09/14/19 12:59 Last Admin: 08/24/19 13:21 Dose: 4 mg Documented by:
[2019-08-24] MEDS ORDERED: MICONAZOLE NITRATE POWDER 43 GM EXT PRN (19:04)
[2019-08-25] MEDS: ACETAMINOPHEN SOL 650 MG/20.3 ML UDC PO SCH ×4 (00:59→19:48)
[2019-08-25] MEDS: ONDANSETRON INJ 2 MG/ML 2 ML VIAL IV SCH ×4 (00:59→19:47)
[2019-08-25] MEDS: DEXTROSE 50% 50 ML SYRINGE IV PRN ×2 (04:01→11:48)
[2019-08-25] MEDS: HEPARIN SOD 5,000 UNIT/0.5 ML VIAL SQ SCH ×3 (05:39→21:11)
[2019-08-25] MEDS: LEVOTHYROXINE SODIUM 25 MCG TABLET PO SCH (05:39)
[2019-08-25] MEDS ORDERED: POTASSIUM PHOS 3 MMOL/1 ML INFUSION IV STA (08:52)
[2019-08-25] MEDS ORDERED: POTASSIUM PHOSPHATE 24 MMOL in SODIUM CHLORIDE 0.9% 500 ML IV STA (08:58)
[2019-08-25] MEDS: MEGESTROL ACETATE 40 MG TAB PO SCH ×2 (09:04→21:11)
[2019-08-25] MEDS: MAGNESIUM OXIDE 400 MG TAB PO SCH ×2 (09:04→21:10)
[2019-08-25] MEDS: SODI CHLOR 2.5MEQ/ML 14.6% 77 MEQ in DEXTROSE 10% 1,000 ML IV SCH (11:47)
--- NOTE | 2019-08-25 15:52 | Hospitalist Progress Note ---
Date of Service August 25, 2019 Assessment & Plan (1) Vomiting and diarrhea: Has been ongoing for sometimes No intestinal obstruction Likely due to cancer with metastasis Diet advanced as tolerated Stool for Cdiff negative Has been getting dextrose infusion for hypoglycemia Symptomatic management of nausea and vomiting No more nausea and/or vomiting as of today Electrolyte imbalance Hypokalemia, hypomagnesemia and hyponatremia and possible hypocalcemia Mg replaced Monitor Electrolytes Electrolytes have been replaced (2) Hypoglycemia: Not been eating or drinking at home Hypoglycemia secondary to poor nutrition and again contributed by metastatic disease Has been on D5 infusion and maintaining blood sugar Continue advised pt and family to try take more oral intake of food Hypoglycemia remains a problem since about admission She is now requiring D10 infusion to maintain blood sugar Her appetite is poor and has been started on Megace Strongly advised to take more food and try boost as needed Stressed on taking more food and fluid orally (3) Hypotension: Secondary to infection seems to be UTI and dehydration Intravenous fluid to maintain blood pressure Continue monitor closely BP Stable-around systolic 90s (4) UTI (urinary tract infection): UA examination is suggestive of UTI Has been started him on intravenous cefepime Urine is growing E. coli and which is pansensitive We will discontinue cefepime and start ceftriaxone Completed course of intravenous antibiotic with ceftriaxone No more hematuria and no urinary symptoms (5) Hematuria: Has thickened gallbladder wall with mild hydronephrosis on either side Has bladder incontinence secondary to paraplegia May need to have urology evaluation if hematuria persists Resolved (6) DIMAS (acute kidney injury): -admit to tele -patient presenting from home with vomiting, diarrhea, and lethargy -in the ED, patient found to be hypotensive with systolic BPs in the 70s and hypoglycemic with blood sugar 34 -BP improved after IVF bolus and blood sugar improved after D50 and D5W infusion -Straight cath urine was very concentrated with visible blood; UA suggesting UTI -Given hypotension and reported fever at home yesterday, patient may be septic however currently afebrile, no leukocytosis, lactic acid normal -will cover broadly with IV Vanco and IV cefepime, adjust per culture results -Urine and blood cultures obtained-pending for now -Patient had renal ultrasound 03/2019 showing mild right hydroureteronephrosis and polypoid anterior bladder wall thickening. Underlying neoplasm is not excluded; patient has not followed up with urology regarding this; will obtain repeat renal ultrasound -Repeat ultrasound did show severe bladder wall thickening and mild bilateral hydronephrosis -Likely conservative management but if hematuria persist will ask for urology evaluation -Creatinine has been improving and it is 1.36 on 08/14/2019 -Creatinine has been normalized (7) Breast cancer, stage 4: Has had chemotherapy in the past Not a candidate for continued chemo Seems to have progressive disease Palliative care consulted for further guidance of management Dr. Mariee will be calling the regarding further guidance of management Palliative on board Family plan to go to rehab since pt continues to improves case discussed with Oncology Dr. Mariee who will discuss possible hormonal treatment with patient if she recovers from rehab in the follow up office visit Case discussed with the oncologist no further treatment at this time Discussed with the family members Will continue current management She will be going home tomorrow with home hospice (8) Metastasis to brain: -Follows with Dr. Clay Mariee -Currently not receiving treatment -It appears as though the patient has had a steady decline over the past several months. 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 Status post back surgery in March of last year Has ongoing paraplegia even before surgery (10) Hypothyroidism: Continue home dose of Synthroid (11) DVT prophylaxis: -SQ heparin Disposition Overall prognosis remains poor Palliative care on Board Not any better Discussion with the palliative care and the family members has been going on every day She will be going home tomorrow with home hospice that has been agreeable with the family members Likely discharge tomorrow Subjective 08/13/2019 Patient is seen and examined in telemetry unit in presence of the She is a 59-year-old female significant past medical history including bilateral breast cancer with metastasis to bone and brain and spinal cord was admitted yesterday with nausea, vomiting and diarrhea, hypoglycemia and hypotension Remains stable but generally very weak and lethargic Complains generalized pain but nausea and vomiting seem to be improving 08/14/2019 Patient is seen and examined in telemetry unit in presence of the She feels a lot better today but remains extremely lethargic Complains some back pain which is improving with intravenous Tylenol 08/15/2019 The patient was seen and examined in presence of her The thinks that patient is having lots of pain with distress at times Does not have any acute shortness of breath Remains extremely weak and lethargic 08/16/2019 Patient was seen and examined in medical floor She has been stable as of this morning Only complains of wheezing Denies any pain at rest 08/24/2019 The patient was seen and examined in the presence of family members She remains weak and lethargic and has had nausea with vomiting this morning following food She denies any acute symptoms while in bed 08/25/2019 Patient was seen and examined in medical floor in presence of the family members She remains weak and has not been eating or drinking much Her blood sugar is very fluctuating and runs low most of the time She requires intravenous dextrose to correct She was advised to drink more fluid and food Review of Systems Review of Systems: All systems reviewed and are unremarkable except as noted below Constitutional: + body aches, + fatigue, + weakness, + anorexia and + weight loss Gastrointestinal: + fecal incontinence; no abdominal pain Physical Exam Physical Exam: Lying in bed comfortably Constitutional: + ill appearing, + thin and + cachectic; no acute distress Eyes: PERRL, conjunctivae normal, anicteric sclerae ENMT: external ear and nose normal, oropharynx normal Neck: trachea midline, no thyromegaly Respiratory: normal respiratory effort; no respiratory distress Auscultation: lungs clear to auscultation bilaterally and + diminished lung sounds Cardiovascular: Rate/Rhythm: regular rate and regular rhythm Heart Sounds: no murmur Gastrointestinal (Abdomen): Inspection/Auscultation: abdomen normal to inspection and normal bowel sounds Percussion/Palpation: + abdomen tender (Mildly tender all over) and abdomen soft Neurologic: moves all extremities and awake Lymphatic: no cervical or axillary lymphadenopathy Results & Data ([facility]) Vital Signs (Past 12 Hours) Vital Signs Temp Pulse Pulse Resp BP Pulse Ox 08/25/19 15:28 36.6 C 81 18 90/66 L 98 08/25/19 11:15 36.6 C 79 18 92/62 L 100 08/25/19 10:43 90/62 L 08/25/19 07:46 37.0 C 80 18 99 08/25/19 07:02 76 Medications Administered Current Inpatient Medications Acetaminophen (Tylenol) 650 mg PO Q6H [facility] Stop: 09/17/19 13:59 Last Admin: 08/25/19 13:56 Dose: Not Given Documented by: Albuterol (Duoneb) 3 ml NEB Q4R PRN PRN Reason: Shortness Of Breath Or Wheezing Stop: 09/17/19 14:59 Last Admin: 08/19/19 11:08 Dose: 3 ml Documented by: Dextrose (Dextrose 50%) 25 - 50 ml IV UD PRN; Protocol PRN Reason: Hypoglycemia Protocol Stop: 09/11/19 17:21 Last Admin: 08/25/19 11:48 Dose: 25 ml Documented by: Glucagon (Glucagen) 1 mg SQ UD PRN; Protocol PRN Reason: Hypoglycemia Protocol Stop: 09/11/19 17:21 Glucose (Dex4 Glucose) 4 - 8 tabs PO UD PRN; Protocol PRN Reason: Hypoglycemia Protocol Stop: 09/11/19 17:21 Glucose (Glucose 40%) 15 - 30 gm PO UD PRN; Protocol PRN Reason: Hypoglycemia Protocol Stop: 09/11/19 17:21 Heparin Sodium (Porcine) (Heparin Sodium (Porcine)) 5,000 units SQ Q8 [facility] Stop: 09/11/19 15:59 Last Admin: 08/25/19 13:57 Dose: Not Given Documented by: Heparin Sodium (Porcine) (Heparin Sod 100 Unit/Ml Flush) 5 ml FLUSH PRN PRN PRN Reason: Flush Stop: 09/11/19 23:14 Promethazine HCl 12.5 mg/ (Sodium Chloride) 50.5 mls @ 202 mls/hr IV Q6H PRN PRN Reason: Nausea And Vomiting Stop: 09/20/19 20:54 Last Infusion: 08/24/19 10:21 Dose: Infused Documented by: Sodium Chloride 77 meq/ (Dextrose) 1,030.8 mls @ 60 mls/hr IV .[id number] [facility] Stop: 09/23/19 00:59 Last Admin: 08/25/19 11:47 Dose: 60 mls/hr Documented by: Levothyroxine Sodium (Synthroid) 62.5 mcg PO DAILYBB [facility] Stop: 09/12/19 06:29 Last Admin: 08/25/19 05:39 Dose: Not Given Documented by: Magnesium Oxide (Mag-Ox) 400 mg PO BID [facility] Stop: 09/20/19 08:29 Last Admin: 08/25/19 09:04 Dose: Not Given Documented by: Megestrol Acetate (Megace) 40 mg PO BID [facility] Stop: 09/21/19 20:59 Last Admin: 08/25/19 09:04 Dose: Not Given Documented by: Miconazole Nitrate (Desenex) 1 appln EXT PRN PRN PRN Reason: Affected Skin Folds Stop: 09/23/19 19:03 Miscellaneous (Carbohydrates For Hypoglycemia) 15 - 30 gm PO UD PRN PRN Reason: Hypoglycemia Protocol Stop: 09/11/19 17:21 Last Admin: 08/20/19 08:18 Dose: 15 gm Documented by: Morphine Sulfate (Roxanol) 2.5 mg PO Q6H PRN PRN Reason: Pain Stop: 08/30/19 15:00 Last Admin: 08/17/19 19:05 Dose: 2.5 mg Documented by: Ondansetron HCl (Zofran) 4 mg IV Q6H [facility] Stop: 09/14/19 12:59 Last Admin: 08/25/19 13:58 Dose: 4 mg Documented by:
--- NOTE | 2019-08-25 16:20 | Palliative Care Progress Note ---
Date of Service August 25, 2019 Assessment & Plan (1) Goals of care, counseling/discussion: -Patient is unable to maintain p.o. intake to prevent hypoglycemia-rehab no longer being considered, plan is to return home with hospice care in a.m. (2) Breast cancer, stage 4: Pt's functional status would not allow further chemo due to poor functional status (3) Metastasis to bone: Schedule Tylenol for pain, avoid opioids if possible per family request (4) Metastasis to brain: Status post whole brain XRT (5) Hypoglycemia: Allow comfort feeding at home, family aware that if patient is unable to maintain her blood sugars she would become less responsive and ultimately this would lead to her . (2) Breast cancer, stage 4: (3) Metastasis to bone: (4) Metastasis to brain: (5) Hypoglycemia: Subjective Patient seen and examined, no family at bedside. Patient reports her was in earlier this morning, went home for several hours and might be returning this afternoon. Left message with nursing to call when patient arrives-we will come meet with him if possible. Per case management notes-patient is plan for discharge home tomorrow with hospice, DME being delivered today. Nausea is improved with scheduled Zofran, patient continues to be unable to take enough p.o. nutrition to maintain blood sugars. Patient's blood sugar was in the 60s again today-requiring IV glucose. Review of Systems Review of Systems: Patient denies fever, chills, chest pain, shortness of breath, or abdominal pain Physical Exam Physical Exam: Patient awake and alert, no acute distress. HEENT: EOMI, hearing within normal limits Respirations: Clear breath sounds bilaterally CV: Regular rate Abdomen: Soft, nontender Extremities: Near paraplegia of lower extremities Neuro: Alert and oriented Results & Data Vital Signs (Past 12 Hours) Vital Signs Temp Pulse Pulse Resp BP Pulse Ox 08/25/19 15:28 97.9 F 81 18 90/66 L 98 08/25/19 11:15 97.9 F 79 18 92/62 L 100 08/25/19 10:43 90/62 L 08/25/19 07:46 98.6 F 80 18 99 08/25/19 07:02 76 PG Care Time/CCT Total # of Minutes Spent Total Time Spent with Patient: Total time spent is greater than 50% in coordination of care (as documented) at patient's floor/unit and/or counseling p atient: Coding Level of Care Code 18745 Subseq Hosp Care Lvl 2 Diagnoses Goals of care, counseling/discussion Z71.89 Breast cancer, stage 4 C50.919 Metastasis to bone C79.51 Metastasis to brain C79.31 Hypoglycemia E16.2 Time Spent (min) 25
[2019-08-25] MEDS: PROMETHAZINE HCL 12.5 MG in SODIUM CHLORIDE 0.9% 50 ML IV PRN (17:48)
[2019-08-26] MEDS: ONDANSETRON INJ 2 MG/ML 2 ML VIAL IV SCH ×3 (00:47→13:20)
[2019-08-26] MEDS: ACETAMINOPHEN SOL 650 MG/20.3 ML UDC PO SCH ×3 (03:18→14:11)
[2019-08-26] MEDS: SODI CHLOR 2.5MEQ/ML 14.6% 77 MEQ in DEXTROSE 10% 1,000 ML IV SCH (04:59)
[2019-08-26] MEDS: HEPARIN SOD 5,000 UNIT/0.5 ML VIAL SQ SCH ×2 (05:29→14:11)
[2019-08-26] MEDS: LEVOTHYROXINE SODIUM 25 MCG TABLET PO SCH (05:30)
[2019-08-26] MEDS: DEXTROSE 50% 50 ML SYRINGE IV PRN (05:48)
[2019-08-26] MEDS: MAGNESIUM OXIDE 400 MG TAB PO SCH (08:00)
[2019-08-26] MEDS: MEGESTROL ACETATE 40 MG TAB PO SCH (08:01)
--- NOTE | 2019-08-26 12:14 | Hospitalist Progress Note ---
Date of Service August 26, 2019 Assessment & Plan (1) Vomiting and diarrhea: Has been ongoing for sometimes No intestinal obstruction Likely due to cancer with metastasis Diet advanced as tolerated Stool for Cdiff negative Has been getting dextrose infusion for hypoglycemia Symptomatic management of nausea and vomiting No more nausea and/or vomiting as of today Will go home this afternoon Electrolyte imbalance Hypokalemia, hypomagnesemia and hyponatremia and possible hypocalcemia Mg replaced Monitor Electrolytes Electrolytes have been replaced (2) Hypoglycemia: Not been eating or drinking at home Hypoglycemia secondary to poor nutrition and again contributed by metastatic disease Has been on D5 infusion and maintaining blood sugar Continue advised pt and family to try take more oral intake of food Hypoglycemia remains a problem since about admission She is now requiring D10 infusion to maintain blood sugar Her appetite is poor and has been started on Megace Strongly advised to take more food and try boost as needed Stressed on taking more food and fluid orally Looking much better today and tolerating oral food and fluid Discussed with the family members in detail and the patient herself He was strongly advised to keep eating and drinking enough so that she does not get into hypoglycemia (3) Hypotension: Secondary to infection seems to be UTI and dehydration Intravenous fluid to maintain blood pressure Continue monitor closely BP Stable-around systolic 90s (4) UTI (urinary tract infection): UA examination is suggestive of UTI Has been started him on intravenous cefepime Urine is growing E. coli and which is pansensitive We will discontinue cefepime and start ceftriaxone Completed course of intravenous antibiotic with ceftriaxone No more hematuria and no urinary symptoms (5) Hematuria: Has thickened gallbladder wall with mild hydronephrosis on either side Has bladder incontinence secondary to paraplegia May need to have urology evaluation if hematuria persists Resolved (6) DIMAS (acute kidney injury): -admit to tele -patient presenting from home with vomiting, diarrhea, and lethargy -in the ED, patient found to be hypotensive with systolic BPs in the 70s and hypoglycemic with blood sugar 34 -BP improved after IVF bolus and blood sugar improved after D50 and D5W infusion -Straight cath urine was very concentrated with visible blood; UA suggesting UTI -Given hypotension and reported fever at home yesterday, patient may be septic however currently afebrile, no leukocytosis, lactic acid normal -will cover broadly with IV Vanco and IV cefepime, adjust per culture results -Urine and blood cultures obtained-pending for now -Patient had renal ultrasound 03/2019 showing mild right hydroureteronephrosis and polypoid anterior bladder wall thickening. Underlying neoplasm is not excluded; patient has not followed up with urology regarding this; will obtain repeat renal ultrasound -Repeat ultrasound did show severe bladder wall thickening and mild bilateral hydronephrosis -Likely conservative management but if hematuria persist will ask for urology evaluation -Creatinine has been improving and it is 1.36 on 08/14/2019 -Creatinine has been normalized (7) Breast cancer, stage 4: Has had chemotherapy in the past Not a candidate for continued chemo Seems to have progressive disease Palliative care consulted for further guidance of management Dr. Mariee will be calling the regarding further guidance of management Palliative on board Family plan to go to rehab since pt continues to improves case discussed with Oncology Dr. Mariee who will discuss possible hormonal treatment with patient if she recovers from rehab in the follow up office visit Case discussed with the oncologist no further treatment at this time Discussed with the family members Will continue current management She will be going home tomorrow with home today (8) Metastasis to brain: -Follows with Dr. Clay Mariee -Currently not receiving treatment -It appears as though the patient has had a steady decline over the past several months. 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 Status post back surgery in March of last year Has ongoing paraplegia even before surgery (10) Hypothyroidism: Continue home dose of Synthroid (11) DVT prophylaxis: -SQ heparin Disposition Overall prognosis remains poor Palliative care on Board Not any better Discussion with the palliative care and the family members has been going on every day She will be going home tomorrow with home hospice that has been agreeable with the family members Discharge home today with home hospice Subjective 08/13/2019 Patient is seen and examined in telemetry unit in presence of the She is a 59-year-old female significant past medical history including bilateral breast cancer with metastasis to bone and brain and spinal cord was admitted yesterday with nausea, vomiting and diarrhea, hypoglycemia and hypotension Remains stable but generally very weak and lethargic Complains generalized pain but nausea and vomiting seem to be improving 08/14/2019 Patient is seen and examined in telemetry unit in presence of the She feels a lot better today but remains extremely lethargic Complains some back pain which is improving with intravenous Tylenol 08/15/2019 The patient was seen and examined in presence of her The thinks that patient is having lots of pain with distress at times Does not have any acute shortness of breath Remains extremely weak and lethargic 08/16/2019 Patient was seen and examined in medical floor She has been stable as of this morning Only complains of wheezing Denies any pain at rest 08/24/2019 The patient was seen and examined in the presence of family members She remains weak and lethargic and has had nausea with vomiting this morning following food She denies any acute symptoms while in bed 08/25/2019 Patient was seen and examined in medical floor in presence of the family members She remains weak and has not been eating or drinking much Her blood sugar is very fluctuating and runs low most of the time She requires intravenous dextrose to correct She was advised to drink more fluid and food 08/26/2019 The patient was seen and examined in presence of the family members She has been looking much brighter today Denies any significant symptoms Has been eating and drinking reasonably Review of Systems Review of Systems: All systems reviewed and are unremarkable except as noted below Constitutional: + fatigue, + weakness, + anorexia and + weight loss Gastrointestinal: no abdominal pain Musculoskeletal: No acute arthritis Physical Exam Physical Exam: Lying in bed comfortably Constitutional: + ill appearing and + thin; no acute distress Eyes: PERRL, conjunctivae normal, anicteric sclerae ENMT: external ear and nose normal, oropharynx normal Neck: trachea midline, no thyromegaly Respiratory: normal respiratory effort; no respiratory distress Auscultati on: lungs clear to auscultation bilaterally and + diminished lung sounds Cardiovascular: Rate/Rhythm: regular rate and regular rhythm Heart Sounds: no murmur Gastrointestinal (Abdomen): Inspection/Auscultation: abdomen normal to inspection and normal bowel sounds Percussion/Palpation: + abdomen tender (Mildly tender all over) and abdomen soft Neurologic: moves all extremities and awake Lymphatic: no cervical or axillary lymphadenopathy Results & Data ([facility]) Vital Signs (Past 12 Hours) Vital Signs Temp Pulse Resp BP Pulse Ox 08/26/19 12:10 36.8 C 72 18 117/82 100 08/26/19 07:15 36.3 C L 73 18 118/83 99 08/26/19 03:16 36.3 C L 75 19 101/66 100 Medications Administered Current Inpatient Medications Acetaminophen (Tylenol) 650 mg PO Q6H RICARDO Stop: 09/17/19 13:59 Last Admin: 08/26/19 08:00 Dose: Not Given Documented by: Albuterol (Duoneb) 3 ml NEB Q4R PRN PRN Reason: Shortness Of Breath Or Wheezing Stop: 09/17/19 14:59 Last Admin: 08/19/19 11:08 Dose: 3 ml Documented by: Dextrose (Dextrose 50%) 25 - 50 ml IV UD PRN; Protocol PRN Reason: Hypoglycemia Protocol Stop: 09/11/19 17:21 Last Admin: 08/26/19 05:48 Dose: 25 ml Documented by: Glucagon (Glucagen) 1 mg SQ UD PRN; Protocol PRN Reason: Hypoglycemia Protocol Stop: 09/11/19 17:21 Glucose (Dex4 Glucose) 4 - 8 tabs PO UD PRN; Protocol PRN Reason: Hypoglycemia Protocol Stop: 09/11/19 17:21 Glucose (Glucose 40%) 15 - 30 gm PO UD PRN; Protocol PRN Reason: Hypoglycemia Protocol Stop: 09/11/19 17:21 Heparin Sodium (Porcine) (Heparin Sodium (Porcine)) 5,000 units SQ Q8 RICARDO Stop: 09/11/19 15:59 Last Admin: 08/26/19 05:29 Dose: Not Given Documented by: Heparin Sodium (Porcine) (Heparin Sod 100 Unit/Ml Flush) 5 ml FLUSH PRN PRN PRN Reason: Flush Stop: 09/11/19 23:14 Promethazine HCl 12.5 mg/ (Sodium Chloride) 50.5 mls @ 202 mls/hr IV Q6H PRN PRN Reason: Nausea And Vomiting Stop: 09/20/19 20:54 Last Infusion: 08/25/19 18:03 Dose: Infused Documented by: Sodium Chloride 77 meq/ (Dextrose) 1,030.8 mls @ 60 mls/hr IV .[id number] [facility] Stop: 09/23/19 00:59 Last Admin: 08/26/19 04:59 Dose: 60 mls/hr Documented by: Levothyroxine Sodium (Synthroid) 62.5 mcg PO DAILYBB [facility] Stop: 09/12/19 06:29 Last Admin: 08/26/19 05:30 Dose: Not Given Documented by: Magnesium Oxide (Mag-Ox) 400 mg PO BID [facility] Stop: 09/20/19 08:29 Last Admin: 08/26/19 08:00 Dose: Not Given Documented by: Megestrol Acetate (Megace) 40 mg PO BID [facility] Stop: 09/21/19 20:59 Last Admin: 08/26/19 08:01 Dose: Not Given Documented by: Miconazole Nitrate (Desenex) 1 appln EXT PRN PRN PRN Reason: Affected Skin Folds Stop: 09/23/19 19:03 Miscellaneous (Carbohydrates For Hypoglycemia) 15 - 30 gm PO UD PRN PRN Reason: Hypoglycemia Protocol Stop: 09/11/19 17:21 Last Admin: 08/20/19 08:18 Dose: 15 gm Documented by: Morphine Sulfate (Roxanol) 2.5 mg PO Q6H PRN PRN Reason: Pain Stop: 08/30/19 15:00 Last Admin: 08/17/19 19:05 Dose: 2.5 mg Documented by: Ondansetron HCl (Zofran) 4 mg IV Q6H [facility] Stop: 09/14/19 12:59 Last Admin: 08/26/19 05:29 Dose: 4 mg Documented by:
--- NOTE | 2019-08-26 16:23 | Palliative Care Progress Note ---
Date of Service August 26, 2019 Assessment & Plan (1) Goals of care, counseling/discussion: -Patient is unable to maintain p.o. intake to prevent hypoglycemia-rehab no longer being considered, plan is to return home with hospice care today. (2) Breast cancer, stage 4: Pt's functional status would not allow further chemo due to poor functional status (3) Metastasis to bone: Schedule Tylenol for pain, avoid opioids if possible per family request (4) Metastasis to brain: Status post whole brain XRT (5) Hypoglycemia: Allow comfort feeding at home, family aware that if patient is unable to maintain her blood sugars she would become less responsive and ultimately this would lead to her . (2) Breast cancer, stage 4: Pt's functional status would not allow further chemo at this time- pt can meet with Onc once she is stronger and completes rehab (3) Metastasis to bone: Schedule Tylenol, avoid opioids if possible per family request (4) Metastasis to brain: (5) Hypoglycemia: Encourage p.o. to keep blood sugars within normal range. Significant altered mental status with low blood sugars. Subjective Patient seen and examined, patient's and daughter at bedside. Patient awake and alert, no acute distress. Patient is plan for discharge home today to be admitted with hospice. Reviewed with family comfort feeds as well as goals of care. Family obtained concentrated protein supplement-LiquaCel for patient at home as well as Emetrol -which is a concentrated simple sugar that aids with nausea as well as patient's hypoglycemia. Review of Systems Review of Systems: Patient denies fever, chills, chest pain, shortness of breath, or abdominal pain. Patient did not have any nausea during visit. Physical Exam Physical Exam: PE: Alert and oriented, NAD HEENT: EOMI, hearing within normal limits Respirations: Unlabored, clear breath sounds CV: Regular rate Abdomen: Soft, nontender, diminished bowel sounds Extremities: Partial paresis lower extremities Neuro: Alert and oriented Results & Data Vital Signs (Past 12 Hours) Vital Signs Temp Pulse Pulse Resp BP BP Pulse Ox 08/26/19 14:34 98.2 F 72 90 18 117/82 123/84 100 08/26/19 12:10 98.2 F 72 18 117/82 100 08/26/19 07:15 97.3 F L 73 18 118/83 99 PG Care Time/CCT Total # of Minutes Spent Total Time Spent with Patient: Total time spent 45 min with greater than 50% of the time spent at bedside discussing goals of care and comfort feeds once patient returns home. Coding Level of Care Code 57040 Subseq Hosp Care Lvl 3 Diagnoses Goals of care, counseling/discussion Z71.89 Breast cancer, stage 4 C50.919 Metastasis to bone C79.51 Metastasis to brain C79.31 Hypoglycemia E16.2 Time Spent (min) 45
--- NOTE | 2019-08-27 08:15 | Discharge Summary ---
Date of Service August 27, 2019 Admission HPI Per Admitting Provider 59 year old female who presents to the ED for evaluation of vomiting, diarrhea, and lethargy. Patient's is at the bedside who provides the history. Patient has had a very poor appetite for the past 2 days. reports very minimal oral intake. She has had vomiting and several episodes of diarrhea. Describes emesis as bilious in the nature. No hematemesis, coffee ground emesis, BRBPR, or dark tarry stools. Had a fever yesterday of 101.5. This morning patient was very lethargic and only responsive with one word answers. Patient was then brought to the ED for further evaluation. In the ED, patient was hypotensive with systolic BPs in the 70s. This improved after IVF bolus. She was also hypoglycemic with glucose 34. This improved after D50 and D5W infusion. Patient was straight cathed for urine specimen and urine is found to be extremely concentrated and with hematuria. UA suggests UTI. Patient was given IV cefepime. Admission Exam Per Admitting Provider On physical exam, General: Frail elderly woman with severe malnutrition as evidenced by loss of muscle mass and bony prominences, shivering Eyes: PERRL, conjunctivae normal, mild pallor, anicteric sclerae, EOM intact bilaterally ENMT: External ear and nose normal, dry oral mucosa Neck: Normal visual inspection, no tracheal deviation, no swelling noted Respiratory: Normal respiratory effort, no respiratory distress, lungs clear to auscultation, no crackles and no wheezes Cardiovascular: Pulse is RRR. S1 S2, no murmur, no pedal edema Chest (Breasts): Chest: normal inspection of chest Gastrointestinal (Abdomen): Abdomen is not distended, soft, non-tender to palpation, no guarding, no palpable hepatosplenomegaly, normal bowel sounds Musculoskeletal: No cyanosis or clubbing, no edema Genitourinary: No CVA tenderness Skin: No rash noted on gross inspection, No ulcers noted Neurologic: Alert and oriented x 1 (person only), answering in one word answers No focal weakness, sensation grossly intact Principal Diagnosis Stage IV breast cancer with metastasis to brain and bones, episodic hypoglycemia-controlled with improved food intake, nausea and vomiting- controlled now, chronic pain Discharge Exam Constitutional + ill appearing and + thin; no acute distress Eyes PERRL, conjunctivae normal, anicteric sclerae ENMT external ear and nose normal, oropharynx normal Neck trachea midline, no thyromegaly Respiratory normal respiratory effort; no respiratory distress Auscultation: lungs clear to auscultation bilaterally and + diminished lung sounds Cardiovascular Rate/Rhythm: regular rate and regular rhythm Heart Sounds: no murmur Gastrointestinal (Abdomen) Inspection/Auscultation: abdomen normal to inspection and normal bowel sounds Percussion/Palpation: + abdomen tender (Mildly tender all over) and abdomen soft Neurologic moves all extremities and awake Lymphatic no cervical or axillary lymphadenopathy Discharge Data Allergies Allergy/AdvReac Type Severity Reaction Status Date / Time Gadolinium-Containing Allergy Severe Could not Verified 08/22/19 18:51 Contrast Medi talk - very disoriented Penicillins Allergy Unknown Unknown Verified 08/22/19 18:51 Sulfa (Sulfonamide Allergy Unknown Unknown Verified 08/22/19 18:51 Antibiotics) Consultations 08/12/19 12:41 ED Decision to Admit Stat 08/12/19 15:12 Consult Case Management - Discharge Planning Routine Consult Palliative Care Routine Ordered Studies 08/12/19 11:29 CT head/brain wo con Stat 08/12/19 13:33 US renal/blad retro comp Routine Hospital Course (1) Vomiting and diarrhea: Has been ongoing for sometimes No intestinal obstruction Likely due to cancer with metastasis Diet advanced as tolerated Stool for Cdiff negative Has been getting dextrose infusion for hypoglycemia Symptomatic management of nausea and vomiting No more nausea and/or vomiting as of today Will go home this afternoon Electrolyte imbalance Hypokalemia, hypomagnesemia and hyponatremia and possible hypocalcemia Mg replaced Monitor Electrolytes Electrolytes have been replaced (2) Hypoglycemia: Not been eating or drinking at home Hypoglycemia secondary to poor nutrition and again contributed by metastatic disease Has been on D5 infusion and maintaining blood sugar Continue advised pt and family to try take more oral intake of food Hypoglycemia remains a problem since about admission She is now requiring D10 infusion to maintain blood sugar Her appetite is poor and has been started on Megace Strongly advised to take more food and try boost as needed Stressed on taking more food and fluid orally Looking much better today and tolerating oral food and fluid Discussed with the family members in detail and the patient herself He was strongly advised to keep eating and drinking enough so that she does not get into hypoglycemia (3) Hypotension: Secondary to infection seems to be UTI and dehydration Intravenous fluid to maintain blood pressure Continue monitor closely BP Stable-around systolic 90s (4) UTI (urinary tract infection): UA examination is suggestive of UTI Has been started him on intravenous cefepime Urine is growing E. coli and which is pansensitive We will discontinue cefepime and start ceftriaxone Completed course of intravenous antibiotic with ceftriaxone No more hematuria and no urinary symptoms (5) Hematuria: Has thickened gallbladder wall with mild hydronephrosis on either side Has bladder incontinence secondary to paraplegia May need to have urology evaluation if hematuria persists Resolved (6) DIMAS (acute kidney injury): -admit to tele -patient presenting from home with vomiting, diarrhea, and lethargy -in the ED, patient found to be hypotensive with systolic BPs in the 70s and hypoglycemic with blood sugar 34 -BP improved after IVF bolus and blood sugar improved after D50 and D5W infusion -Straight cath urine was very concentrated with visible blood; UA suggesting UTI -Given hypotension and reported fever at home yesterday, patient may be septic however currently afebrile, no leukocytosis, lactic acid normal -will cover broadly with IV Vanco and IV cefepime, adjust per culture results -Urine and blood cultures obtained-pending for now -Patient had renal ultrasound 03/2019 showing mild right hydroureteronephrosis and polypoid anterior bladder wall thickening. Underlying neoplasm is not excluded; patient has not followed up with urology regarding this; will obtain repeat renal ultrasound -Repeat ultrasound did show severe bladder wall thickening and mild bilateral hydronephrosis -Likely conservative management but if hematuria persist will ask for urology evaluation -Creatinine has been improving and it is 1.36 on 08/14/2019 -Creatinine has been normalized (7) Breast cancer, stage 4: Has had chemotherapy in the past Not a candidate for continued chemo Seems to have progressive disease Palliative care consulted for further guidance of management Dr. Mariee will be calling the regarding further guidance of management Palliative on board Family plan to go to rehab since pt continues to improves case discussed with Oncology Dr. Mariee who will discuss possible hormonal treatment with patient if she recovers from rehab in the follow up office visit Case discussed with the oncologist no further treatment at this time Discussed with the family members Will continue current management She will be going home tomorrow with home today (8) Metastasis to brain: -Follows with Dr. Clay Mariee -Currently not receiving treatment -It appears as though the patient has had a steady decline over the past several months. 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 Status post back surgery in March of last year Has ongoing paraplegia even before surgery (10) Hypothyroidism: Continue home dose of Synthroid (11) DVT prophylaxis: -SQ heparin Disposition Overall prognosis remains poor Palliative care on Board Not any better Discussion with the palliative care and the family members has been going on every day She will be going home tomorrow with home hospice that has been agreeable with the family members Discharge home today with home hospice Total Time Total Time Spent Total Time Spent (In Minutes): 35 minutes Total Time Includes: Examination of the Patient, Discharge Planning, Medication Reconciliation and Communication With Other Providers Discharge Plan Discharge Items Patient Disposition: Hospice - Home Reason For Visit: N/V,HYPOGLYCEMIA Discharge Diagnosis: Stage IV breast cancer with metastasis to brain and bones, episodic hypoglycemia-controlled with improved food intake, nausea and vomiting- controlled now, chronic pain Condition on Discharge: Fair Activity: Resume your previous activity Non-emergency contact: Primary Care Provider Call non-emergency contact if: you have any medication questions and your symptoms worsen Follow-up/Referrals: Zeb Madrigal MD [Primary Care Provider] - (Follow-up with primary care will be as per hospice nurse) Diet: Regular Diet Comment: Minced and moist Addtl Attending Provider Instructions: Strongly advised to maintain nutrition with small frequent meals Please take precaution to avoid falls Pending Studies at Discharge: No Stand-Alone Forms: [facility] Medications and DC Order Prescriptions: New acetaminophen 160 mg/5 mL (5 mL) Solution 10 ml PO Q4H PRN (Reason: Fever) 10 Days Qty: 240 RF: 0 magnesium oxide 400 mg (241.3 mg magnesium) Tablet 400 mg PO BID 30 Days Qty: 60 RF: 0 megestrol 40 mg Tablet 40 mg PO BID 30 Days Qty: 60 RF: 0 potassium chloride 20 mEq/15 mL liquid 20 meq PO DAILY Qty: 1200 RF: 0 ondansetron HCl 8 mg tablet 8 mg PO Q6H PRN (Reason: Nausea) 10 Days Qty: 30 RF: 0 Continued levothyroxine 50 mcg tablet 62.5 mcg PO QAM RF: 0 Discontinued loratadine-pseudoephedrine [Claritin-D 24 Hour] 10-240 mg tablet extended release 24 hr 1 tab PO DIRECTED PRN (Reason: Allergy Symptoms) RF: 0 Discharge Orders: Discharge Order (Routine); Ordered 08/26/19 Ordered By: Onel Shultz Admission Data Admit Date/Time: 08/12/19 13:07 Attending Provider: Onel Shultz Admit Provider: Rosaura Samaniego I. Primary Care Provider: Zeb Madrigal Other Providers: Rosaura Samaniego I. ; Delaney Stevenson ; Onel Shultz ; [facility] ; [place] ; Yesenia Alcazar Other Interventions: Discharge Summary Assessment (RN) Last Done: 08/26/19 14:34 DC Date/Time DO NOT enter until pt leaves facility: 08/26/19 15:59
== END 2019-08-26 15:59 | disposition hospice, home (50) | DRG 682 ==
LOC: ED 11:08 → SUATTDRO 13:07 → 2S 13:07 → 2N 08-14 21:00